=== PATIENT | male | born 1960 | race Caucasian/White ===

== ENCOUNTER 2017-03-22 19:15 | Inpatient (IN) | payer MEDICARE, OTHER ==
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
[2017-03-22 20:13] LABS: % BASOPHILS 0.8 % (0.0-2.0); % EOSINOPHILS 6.2 % (0.0-5.0); % LYMPHOCYTES 31.7 % (20.0-50.0); % MONOCYTES 10.4 % (2.0-10.0); % NEUTROPHILS 50.9 % (40.0-80.0); HEMATOCRIT 40.9 % (39.0-49.0); HEMOGLOBIN 13.4 gm/dL (13.2-17.3); MEAN CORPUSCULAR HEMOGLOBIN 29.5 pg (26.0-30.0); MEAN CORPUSCULAR HGB CONC 32.7 pg (28.0-36.0); MEAN PLATELET VOLUME 7.9 fl; NEUTROPHILE ABSOLUTE 2.5 Th/cmm (1.8-8.0); PLATELET COUNT 243 Th/cmm (150-400); RED BLOOD COUNT 4.54 Mil/cmm (4.30-5.70); RED CELL DISTRIBUTION WIDTH 13.2 % (11.5-20.0)
[2017-03-22 20:21] LABS: WHITE BLOOD COUNT 4.9 Th/cmm (4.8-10.8)
[2017-03-22 20:29] LABS: ACETAMINOPHEN < 10.0 ug/mL (10.0-30.0); ALB/GLOB RATIO 1.4 (1.0-1.8); ALKALINE PHOSPHATASE 67 U/L (34-104); ANION GAP 6.6 (7.0-16.0); BILIRUBIN,TOTAL 0.4 mg/dL (0.3-1.0); BUN - UREA NITROGEN 15 mg/dL (7-25); BUN/CREATININE RATIO 16.7; CALCIUM SERUM 9.5 mg/dL (8.6-10.3); CARBON DIOXIDE 27.8 mEq/L (21.0-31.0); CHLORIDE 105 mEq/L (98-107); CHOLESTEROL 119 mg/dL (<200); CREATININE - SERUM 0.9 mg/dL (0.7-1.3); GLUCOSE 96 mg/dL (70-105); POTASSIUM SERUM 3.4 mEq/L (3.5-5.1); SGOT 17 U/L (13-39); SGPT/ALT 7 U/L (7-52); SODIUM SERUM 136 mEq/L (136-145); TRIGLYCERIDES 75 mg/dL (<150)
[2017-03-22 20:29] LABS: URINE BILIRUBIN NEGATIVE (NEGATIVE); URINE BLOOD NEGATIVE (NEGATIVE); URINE COLOR YELLOW; URINE GLUCOSE (UA) NEGATIVE (NEGATIVE); URINE KETONE NEGATIVE (NEGATIVE)
[2017-03-22 20:30] LABS: URINE BACTERIA NONE SEEN /hpf (NONE SEEN); URINE EPITHELIAL CELLS NONE SEEN /lpf (FEW); URINE PROTEIN NEGATIVE (NEGATIVE); URINE RBC NONE SEEN /hpf (0-5); URINE UROBILINOGEN 0.2 E.U./dL (0.2 - 1.0); URINE WBC NONE SEEN /hpf (0-5)
[2017-03-22 20:38] LABS: AMPHETAMINE URINE NEGATIVE (NEGATIVE); BARBITURATES URINE NEGATIVE (NEGATIVE); METHADONE URINE NEGATIVE (NEGATIVE)
[2017-03-22] MEDS ORDERED: Maalox 30 mL Cup PO PRN (22:05)
[2017-03-22] MEDS ORDERED: Fleet Enema 135 mL RC PRN (22:05)
[2017-03-22] MEDS ORDERED: Acetaminophen 500 MG TAB PO PRN ×2 (22:05)
[2017-03-22 22:12] VITALS: BP 128/82
[2017-03-22] MEDS: Dextromethorphan/Quinidine 20mg/10mg Cap PO SCH (22:30)
[2017-03-23] MEDS: Dextromethorphan/Quinidine 20mg/10mg Cap PO SCH ×2 (10:20→22:15)
[2017-03-23] MEDS: Potassium Chloride 10 mEq ER Tab PO SCH (10:54)
[2017-03-23] MEDS: Multivitamin Tab PO SCH (10:55)
[2017-03-23] MEDS: Pantoprazole 40 mg EC Tab PO SCH (10:55)
--- NOTE | 2017-03-23 15:10 | Admit Criteria Form ---
Admit Criteria Forms - Admit Criteria Diagnosis: PSYCHIATRIC DISORDERS (Place 'X' for any and all applicable criteria): Ongoing inpatient care may be needed for 1 or more of the following(1)(2)(3)(4)( 6)(7)(8): [ ]I. Danger to self or others not manageable at lower level of care. [ ]II. Grave disability (eg, inability to perform self care necessary at lower level of care) [ ]III. Agitation or inappropriate behavior interfering with care for primary condition (eg, attempting to discontinue lines or drains prematurely, unable to cooperate with respiratory care) [X]IV. Severe disability or disorder indicated by ALL of the following: [X]a) Severe behavioral health disorder-related symptoms or condition indicated by 1 or more of the following: [ ]i) Severe problem with cognition, memory, judgment, or impulse control [X]ii) Severe clinical manifestations (eg, hallucinations, delusions, other acute psychotic symptoms, gilberto, extreme agitation or anxiety) [X]b) Patient management at lower level of care is not feasible until acute intervention or modification is initiated. Extended stay beyond goal length of stay for the primary condition may be needed until ALLof the following are present(1)(2)(3)(4)(7)89)(23): [ ]a) Danger to self or others is absent or manageable at lower level of care [ ]b) Behavior crisis management, including physical or chemical restraints, is required and is not available at a lower level of care. [ ]c) Behavioral symptoms (e.g., agitation, somnolence, inappropriate behavior) are present, and are not manageable at a lower level of care. [ ]d) Patient cannot understand follow-up treatment and crisis plan. [ ]e) Provider and supports are sufficiently available at lower level of care. [ ]f) Patient can participate (e.g., verify absence of plan for harm) and is in needed of monitoring. The original [facility] content created by [facility] has been revised. The portions of the content which have been revised are identified through the use of italic text or in bold, and [facility] has neither reviewed nor approved the modified material. All other unmodified content is copyright [facility]. Please see references footnoted in the original [facility] edition 2017
[2017-03-24] MEDS: Potassium Chloride 10 mEq ER Tab PO SCH (09:53)
[2017-03-24] MEDS: Multivitamin Tab PO SCH (09:54)
[2017-03-24] MEDS: Pantoprazole 40 mg EC Tab PO SCH (09:55)
[2017-03-24] MEDS: Dextromethorphan/Quinidine 20mg/10mg Cap PO SCH ×2 (09:58→22:15)
[2017-03-25] MEDS: Potassium Chloride 10 mEq ER Tab PO SCH (10:08)
[2017-03-25] MEDS: Multivitamin Tab PO SCH (10:08)
[2017-03-25] MEDS: Pantoprazole 40 mg EC Tab PO SCH (10:08)
[2017-03-25] MEDS: Dextromethorphan/Quinidine 20mg/10mg Cap PO SCH ×2 (10:09→22:15)
[2017-03-26] MEDS: Pantoprazole 40 mg EC Tab PO SCH (08:52)
[2017-03-26] MEDS: Potassium Chloride 10 mEq ER Tab PO SCH (08:52)
[2017-03-26] MEDS: Multivitamin Tab PO SCH (08:52)
[2017-03-26] MEDS: Dextromethorphan/Quinidine 20mg/10mg Cap PO SCH ×2 (16:04→21:57)
--- NOTE | 2017-03-26 17:03 | General Progress Note ---
Subjective - Review of Systems Service Date: 03/26/17 Objective - Results Result Diagrams: 03/22/17 20:06 03/22/17 20:06 Recent Labs: Laboratory Last Values WBC 4.9 Th/cmm (4.8-10.8) D 03/22/17 20:06 RBC 4.54 Mil/cmm (4.30-5.70) 03/22/17 20:06 Hgb 13.4 gm/dL (13.2-17.3) 03/22/17 20:06 Hct 40.9 % (39.0-49.0) 03/22/17 20:06 MCV 90.0 fl (80-99) 03/22/17 20:06 MCH 29.5 pg (26.0-30.0) 03/22/17 20:06 MCHC Differential 32.7 pg (28.0-36.0) 03/22/17 20:06 RDW 13.2 % (11.5-20.0) 03/22/17 20:06 Plt Count 243 Th/cmm (150-400) 03/22/17 20:06 MPV 7.9 fl 03/22/17 20:06 Neutrophils % 50.9 % (40.0-80.0) 03/22/17 20:06 Lymphocytes % 31.7 % (20.0-50.0) 03/22/17 20:06 Monocytes % 10.4 % (2.0-10.0) H 03/22/17 20:06 Eosinophils % 6.2 % (0.0-5.0) H 03/22/17 20:06 Basophils % 0.8 % (0.0-2.0) 03/22/17 20:06 Sodium 136 mEq/L (136-145) 03/22/17 20:06 Potassium 3.4 mEq/L (3.5-5.1) L 03/22/17 20:06 Chloride 105 mEq/L (98-107) 03/22/17 20:06 Carbon Dioxide 27.8 mEq/L (21.0-31.0) 03/22/17 20:06 Anion Gap 6.6 (7.0-16.0) L 03/22/17 20:06 BUN 15 mg/dL (7-25) 03/22/17 20:06 Creatinine 0.9 mg/dL (0.7-1.3) 03/22/17 20:06 Est GFR ( Amer) > 60.0 ml/min (>90) 03/22/17 20:06 Est GFR (Non-Af Amer) > 60.0 ml/min 03/22/17 20:06 BUN/Creatinine Ratio 16.7 03/22/17 20:06 Glucose 96 mg/dL (70-105) 03/22/17 20:06 Calcium 9.5 mg/dL (8.6-10.3) 03/22/17 20:06 Total Bilirubin 0.4 mg/dL (0.3-1.0) 03/22/17 20:06 AST 17 U/L (13-39) 03/22/17 20:06 ALT 7 U/L (7-52) 03/22/17 20:06 Alkaline Phosphatase 67 U/L (34-104) 03/22/17 20:06 Total Protein 6.7 gm/dL (6.0-8.3) 03/22/17 20:06 Albumin 3.9 gm/dL (4.2-5.5) L 03/22/17 20:06 Globulin 2.8 gm/dL 03/22/17 20:06 Albumin/Globulin Ratio 1.4 (1.0-1.8) 03/22/17 20:06 Triglycerides 75 mg/dL (<150) 03/22/17 20:06 Cholesterol 119 mg/dL (<200) 03/22/17 20:06 LDL Cholesterol Direct 52 mg/dL (75-193) L 03/22/17 20:06 HDL Cholesterol 51 mg/dL (23-92) 03/22/17 20:06 TSH 0.40 uIU/ml (0.34-5.60) 03/22/17 20:06 Urine Source CLEAN C 03/22/17 20:00 Urine Color YELLOW 03/22/17 20:00 Urine Clarity CLEAR (CLEAR) 03/22/17 20:00 Urine pH 7.0 03/22/17 20:00 Ur Specific [place] 1.020 (1.005-1.030) 03/22/17 20:00 Urine Protein NEGATIVE mg/dL (NEGATIVE) 03/22/17 20:00 Urine Glucose (UA) NEGATIVE mg/dL (NEGATIVE) 03/22/17 20:00 Urine Ketones NEGATIVE mg/dL (NEGATIVE) 03/22/17 20:00 Urine Blood NEGATIVE (NEGATIVE) 03/22/17 20:00 Urine Nitrate NEGATIVE (NEGATIVE) 03/22/17 20:00 Urine Bilirubin NEGATIVE (NEGATIVE) 03/22/17 20:00 Urine Urobilinogen 0.2 E.U./dL (0.2 - 1.0) 03/22/17 20:00 Ur Leukocyte Esterase NEGATIVE (NEGATIVE) 03/22/17 20:00 Urine RBC NONE SEEN /hpf (0-5) 03/22/17 20:00 Urine WBC NONE SEEN /hpf (0-5) 03/22/17 20:00 Ur Epithelial Cells NONE SEEN /lpf (FEW) 03/22/17 20:00 Urine Bacteria NONE SEEN /hpf (NONE SEEN) 03/22/17 20:00 Salicylates < 25.0 mg/L (30.0-100.0) L 03/22/17 20:06 Urine Opiates Screen NEGATIVE (NEGATIVE) 03/22/17 20:00 Urine Methadone Screen NEGATIVE (NEGATIVE) 03/22/17 20:00 Acetaminophen < 10.0 ug/mL (10.0-30.0) L 03/22/17 20:06 Ur Barbiturates Screen NEGATIVE (NEGATIVE) 03/22/17 20:00 Ur Tricyclics Screen POSITIVE (NEGATIVE) H 03/22/17 20:00 Ur Phencyclidine Scrn NEGATIVE (NEGATIVE) 03/22/17 20:00 Amphetamines Screen NEGATIVE (NEGATIVE) 03/22/17 20:00 U Methamphetamines Scrn NEGATIVE (NEGATIVE) 03/22/17 20:00 U Benzodiazepines Scrn POSITIVE (NEGATIVE) H 03/22/17 20:00 U Cocaine Metab Screen NEGATIVE (NEGATIVE) 03/22/17 20:00 U Cannabinoids Screen NEGATIVE (NEGATIVE) 03/22/17 20:00 Ethyl Alcohol < 10 mg/dL (0-10) 03/22/17 20:06 RPR NONREACTIVE (NONREACTIVE) 03/22/17 20:06 - Physical Exam Vitals and I&O: Vital Signs Temp 98.8 F 03/26/17 15:49 Pulse 57 03/26/17 15:49 Resp 20 03/26/17 15:49 BP 123/80 03/26/17 15:49 Pulse Ox 96 03/26/17 15:49 Intake & Output 03/25/17 03/26/17 03/26/17 18:59 06:59 18:59 Intake Total 120 Balance 120 Intake: Oral 120 Other: # Voids 3 Active Medications: Current Medications Acetaminophen (Tylenol) 650 mg PO Q4HR PRN PRN Reason: Pain (Moderate) Stop: 05/21/17 22:04 Acetaminophen (Tylenol Extra Strength) 500 mg PO Q4HR PRN PRN Reason: Pain (Mild) Acetaminophen (Tylenol Extra Strength) 1,000 mg PO Q4HR PRN PRN Reason: Pain (Severe) Al Hydrox/Mg Hydrox/Simethicone (Maalox) 30 ml PO Q4HR PRN PRN Reason: GI DISTRESS Stop: 05/21/17 22:04 Dextromethorphan/Quinidine (Nuedexta 20mg-10mg) 1 cap PO Q12H JORGITO Stop: 05/21/17 22:14 Last Admin: 03/26/17 16:04 Dose: Not Given Docusate Sodium (Colace) 250 mg PO DAILY PRN PRN Reason: Constipation Stop: 05/21/17 22:04 Lorazepam (Ativan) 1 mg PO Q6HR PRN; Protocol PRN Reason: Anxiety Stop: 05/21/17 22:04 Multivitamins/Vitamin C (Theragran) 1 tab PO DAILY JORGITO Stop: 05/22/17 08:59 Last Admin: 03/26/17 08:52 Dose: 1 tab Pantoprazole Sodium (Protonix) 40 mg PO DAILY JORGITO Stop: 05/22/17 08:59 Last Admin: 03/26/17 08:52 Dose: 40 mg Potassium Chloride (Klor-Con) 10 meq PO DAILY JORGITO Stop: 05/22/17 08:59 Last Admin: 03/26/17 08:52 Dose: 10 meq Quetiapine Fumarate (Seroquel) 400 mg PO HS JORGITO PRN Reason: Protocol Stop: 05/22/17 20:59 Last Admin: 03/25/17 21:00 Dose: 400 mg Sodium Phosphate (Fleet Enema) 135 ml RC Q72HR PRN PRN Reason: Constipation Stop: 05/21/17 22:04 Topiramate (Topamax) 75 mg PO BID JORGITO Stop: 05/22/17 08:59 Last Admin: 03/26/17 08:52 Dose: 75 mg - Procedures Procedures: Procedures Procedure Code Date GROUP PSYCHOTHERAPY 90538 08/19/15 GROUP PSYCHOTHERAPY [id number] 08/19/15 Assessment/Plan - Problem List Patient Problems: All Active Problems Agitation (Acute) R45.1 Cerebral palsy (Acute) G80.9 Hypertension (Acute) I10 Pseudobulbar affect (Acute) F48.2 Seizure (Acute) R56.9 Traumatic brain injury (Acute) S06.9X9A UTI (urinary tract infection) (Acute) Nutritional Asmnt/Malnutr-PDOC - Dietary Evaluation Malnutrition Findings (Please click <Entered> for more info): Nutritional Asmnt/Malnutrition Start: 03/24/17 15: 19 Text: Status: Complete Freq: Document 03/24/17 15:19 GSUN (Rec: 03/24/17 15:28 GSUN [id number]) Nutritional Asmnt/Malnutrition Patient General Information Nutritional Screening Diagnosis Diagnosis ER: aggressive behavior, increased agitation Pertinent Medical Hx/Surgical Hx ER: HTN, PUD/GERD, seizures, dementia, traumatic brain injury, pseudobulbar effect, schizophrenia, anxiety Subjective Information 57 year old male from SNF. Pt was slow in resposnes, alert and pleasant. Pt is edentulous , dentures bottom teeth only, denied difficulties chewing/ swallowing. Pt is thin, mild- moderate fat/muscle wasting to clavicles. Pt is unsure of UBW. Pt stated breakfast was good, denied nutritional concerns at this time. Spoke to ROPEMAN, ROPEMAN stated pt has good appetite, 100% breakfast this AM. Current Diet Order/ Nutrition Support [facility] soft chopped, QUAN Pertinent Medications Maalox, Colace, Theragran, Protonix, Klor-Con, Seroquel, Fleet Enema Pertinent Labs Reviewed. Nutritional Hx/Data Height 1.73 m Height (Calculated Centimeters) 172.7 Current Weight (lbs) 56.835 kg Weight (Calculated Kilograms) 56.8 Weight (Calculated Grams) 49273.1 [place] Body Weight 154 Weight Status Approriate GI Symptoms Food Allergies No Usual diet at home [facility]: [facility] soft Skin Integrity/Comment: Jose 17. Skin intact. Estimated Nutritional Goals BEE in Kcals: Using Current wt Calories/Kcals/Kg CBW 125.3lb/57kg Kcals Calculated 1425-1710kcal (25-30kcal/kg) Protein: Using Current wt Protein Calculated 57-68g (1-1.2g/kg) Fluid: ml 1425-1710ml (1ml/kcal) Nutritional Problem 1. Problem Problem No nutritional problem at this time. Intervention/Recommendation Comments 1. Continue with current diet order. Encourage PO intake. 2. Nursing staff to record %PO intake, no records since adm. 3. Monitor weight, pt is overall thin with mild- moderate wasting noted. Expected Outcomes/Goals Expected Outcomes/Goals 1. PO intake to meet 100% of estimated nutritional needs.
--- NOTE | 2017-03-27 12:50 | General Progress Note ---
Subjective - Review of Systems Events since last encounter: no distress Objective - Results Result Diagrams: 03/22/17 20:06 03/22/17 20:06 Recent Labs: Laboratory Last Values WBC 4.9 Th/cmm (4.8-10.8) D 03/22/17 20:06 RBC 4.54 Mil/cmm (4.30-5.70) 03/22/17 20:06 Hgb 13.4 gm/dL (13.2-17.3) 03/22/17 20:06 Hct 40.9 % (39.0-49.0) 03/22/17 20:06 MCV 90.0 fl (80-99) 03/22/17 20:06 MCH 29.5 pg (26.0-30.0) 03/22/17 20:06 MCHC Differential 32.7 pg (28.0-36.0) 03/22/17 20:06 RDW 13.2 % (11.5-20.0) 03/22/17 20:06 Plt Count 243 Th/cmm (150-400) 03/22/17 20:06 MPV 7.9 fl 03/22/17 20:06 Neutrophils % 50.9 % (40.0-80.0) 03/22/17 20:06 Lymphocytes % 31.7 % (20.0-50.0) 03/22/17 20:06 Monocytes % 10.4 % (2.0-10.0) H 03/22/17 20:06 Eosinophils % 6.2 % (0.0-5.0) H 03/22/17 20:06 Basophils % 0.8 % (0.0-2.0) 03/22/17 20:06 Sodium 136 mEq/L (136-145) 03/22/17 20:06 Potassium 3.4 mEq/L (3.5-5.1) L 03/22/17 20:06 Chloride 105 mEq/L (98-107) 03/22/17 20:06 Carbon Dioxide 27.8 mEq/L (21.0-31.0) 03/22/17 20:06 Anion Gap 6.6 (7.0-16.0) L 03/22/17 20:06 BUN 15 mg/dL (7-25) 03/22/17 20:06 Creatinine 0.9 mg/dL (0.7-1.3) 03/22/17 20:06 Est GFR ( Amer) > 60.0 ml/min (>90) 03/22/17 20:06 Est GFR (Non-Af Amer) > 60.0 ml/min 03/22/17 20:06 BUN/Creatinine Ratio 16.7 03/22/17 20:06 Glucose 96 mg/dL (70-105) 03/22/17 20:06 Calcium 9.5 mg/dL (8.6-10.3) 03/22/17 20:06 Total Bilirubin 0.4 mg/dL (0.3-1.0) 03/22/17 20:06 AST 17 U/L (13-39) 03/22/17 20:06 ALT 7 U/L (7-52) 03/22/17 20:06 Alkaline Phosphatase 67 U/L (34-104) 03/22/17 20:06 Total Protein 6.7 gm/dL (6.0-8.3) 03/22/17 20:06 Albumin 3.9 gm/dL (4.2-5.5) L 03/22/17 20:06 Globulin 2.8 gm/dL 03/22/17 20:06 Albumin/Globulin Ratio 1.4 (1.0-1.8) 03/22/17 20:06 Triglycerides 75 mg/dL (<150) 03/22/17 20:06 Cholesterol 119 mg/dL (<200) 03/22/17 20:06 LDL Cholesterol Direct 52 mg/dL (75-193) L 03/22/17 20:06 HDL Cholesterol 51 mg/dL (23-92) 03/22/17 20:06 TSH 0.40 uIU/ml (0.34-5.60) 03/22/17 20:06 Urine Source CLEAN C 03/22/17 20:00 Urine Color YELLOW 03/22/17 20:00 Urine Clarity CLEAR (CLEAR) 03/22/17 20:00 Urine pH 7.0 03/22/17 20:00 Ur Specific [place] 1.020 (1.005-1.030) 03/22/17 20:00 Urine Protein NEGATIVE mg/dL (NEGATIVE) 03/22/17 20:00 Urine Glucose (UA) NEGATIVE mg/dL (NEGATIVE) 03/22/17 20:00 Urine Ketones NEGATIVE mg/dL (NEGATIVE) 03/22/17 20:00 Urine Blood NEGATIVE (NEGATIVE) 03/22/17 20:00 Urine Nitrate NEGATIVE (NEGATIVE) 03/22/17 20:00 Urine Bilirubin NEGATIVE (NEGATIVE) 03/22/17 20:00 Urine Urobilinogen 0.2 E.U./dL (0.2 - 1.0) 03/22/17 20:00 Ur Leukocyte Esterase NEGATIVE (NEGATIVE) 03/22/17 20:00 Urine RBC NONE SEEN /hpf (0-5) 03/22/17 20:00 Urine WBC NONE SEEN /hpf (0-5) 03/22/17 20:00 Ur Epithelial Cells NONE SEEN /lpf (FEW) 03/22/17 20:00 Urine Bacteria NONE SEEN /hpf (NONE SEEN) 03/22/17 20:00 Salicylates < 25.0 mg/L (30.0-100.0) L 03/22/17 20:06 Urine Opiates Screen NEGATIVE (NEGATIVE) 03/22/17 20:00 Urine Methadone Screen NEGATIVE (NEGATIVE) 03/22/17 20:00 Acetaminophen < 10.0 ug/mL (10.0-30.0) L 03/22/17 20:06 Ur Barbiturates Screen NEGATIVE (NEGATIVE) 03/22/17 20:00 Ur Tricyclics Screen POSITIVE (NEGATIVE) H 03/22/17 20:00 Ur Phencyclidine Scrn NEGATIVE (NEGATIVE) 03/22/17 20:00 Amphetamines Screen NEGATIVE (NEGATIVE) 03/22/17 20:00 U Methamphetamines Scrn NEGATIVE (NEGATIVE) 03/22/17 20:00 U Benzodiazepines Scrn POSITIVE (NEGATIVE) H 03/22/17 20:00 U Cocaine Metab Screen NEGATIVE (NEGATIVE) 03/22/17 20:00 U Cannabinoids Screen NEGATIVE (NEGATIVE) 03/22/17 20:00 Ethyl Alcohol < 10 mg/dL (0-10) 03/22/17 20:06 RPR NONREACTIVE (NONREACTIVE) 03/22/17 20:06 - Physical Exam Vitals and I&O: Vital Signs Temp 97.6 F 03/27/17 06:08 Pulse 64 03/27/17 06:08 Resp 18 03/27/17 06:08 BP 114/79 03/27/17 06:08 Pulse Ox 98 03/27/17 06:08 Intake & Output 03/26/17 03/27/17 03/27/17 18:59 06:59 18:59 Other: # Voids 1 # Bowel Movements 1 Active Medications: Current Medications Acetaminophen (Tylenol) 650 mg PO Q4HR PRN PRN Reason: Pain (Moderate) Stop: 05/21/17 22:04 Acetaminophen (Tylenol Extra Strength) 500 mg PO Q4HR PRN PRN Reason: Pain (Mild) Acetaminophen (Tylenol Extra Strength) 1,000 mg PO Q4HR PRN PRN Reason: Pain (Severe) Al Hydrox/Mg Hydrox/Simethicone (Maalox) 30 ml PO Q4HR PRN PRN Reason: GI DISTRESS Stop: 05/21/17 22:04 Dextromethorphan/Quinidine (Nuedexta 20mg-10mg) 1 cap PO Q12H JORGITO Stop: 05/21/17 22:14 Last Admin: 03/26/17 21:57 Dose: 1 cap Docusate Sodium (Colace) 250 mg PO DAILY PRN PRN Reason: Constipation Stop: 05/21/17 22:04 Lorazepam (Ativan) 1 mg PO Q6HR PRN; Protocol PRN Reason: Anxiety Stop: 05/21/17 22:04 Multivitamins/Vitamin C (Theragran) 1 tab PO DAILY JORGITO Stop: 05/22/17 08:59 Last Admin: 03/26/17 08:52 Dose: 1 tab Pantoprazole Sodium (Protonix) 40 mg PO DAILY JORGITO Stop: 05/22/17 08:59 Last Admin: 03/26/17 08:52 Dose: 40 mg Potassium Chloride (Klor-Con) 10 meq PO DAILY JORGITO Stop: 05/22/17 08:59 Last Admin: 03/26/17 08:52 Dose: 10 meq Quetiapine Fumarate (Seroquel) 400 mg PO HS JORGITO PRN Reason: Protocol Stop: 05/22/17 20:59 Last Admin: 03/26/17 21:27 Dose: 400 mg Sodium Phosphate (Fleet Enema) 135 ml RC Q72HR PRN PRN Reason: Constipation Stop: 05/21/17 22:04 Topiramate (Topamax) 75 mg PO BID JORGITO Stop: 05/22/17 08:59 Last Admin: 03/26/17 19:09 Dose: Not Given General: No acute distress HEENT: Atraumatic Neck: Supple, no Thyromegaly Cardiovascular: Regular rate - Procedures Procedures: Procedures Procedure Code Date GROUP PSYCHOTHERAPY 46919 08/19/15 GROUP PSYCHOTHERAPY GZHZZZZ 08/19/15 Assessment/Plan - Problem List Patient Problems: All Active Problems Agitation (Acute) R45.1 Cerebral palsy (Acute) G80.9 Hypertension (Acute) I10 Pseudobulbar affect (Acute) F48.2 Seizure (Acute) R56.9 Traumatic brain injury (Acute) S06.9X9A UTI (urinary tract infection) (Acute) - Plan Plan: as per psych as problems arise Nutritional Asmnt/Malnutr-PDOC - Dietary Evaluation Malnutrition Findings (Please click <Entered> for more info): Nutritional Asmnt/Malnutrition Start: 03/24/17 15: 19 Text: Status: Complete Freq: Document 03/24/17 15:19 GSUN (Rec: 03/24/17 15:28 [facility] Nutritional Asmnt/Malnutrition Patient General Information Nutritional Screening Diagnosis Diagnosis ER: aggressive behavior, increased agitation Pertinent Medical Hx/Surgical Hx ER: HTN, PUD/GERD, seizures, dementia, traumatic brain injury, pseudobulbar effect, schizophrenia, anxiety Subjective Information 57 year old male from SNF. Pt was slow in resposnes, alert and pleasant. Pt is edentulous , dentures bottom teeth only, denied difficulties chewing/ swallowing. Pt is thin, mild- moderate fat/muscle wasting to clavicles. Pt is unsure of UBW. Pt stated breakfast was good, denied nutritional concerns at this time. Spoke to SUPERVISOR COMMERCIAL FISH HATCHERY, SUPERVISOR [employer]CIAL [employer] HATCHERY stated pt has good appetite, 100% breakfast this AM. Current Diet Order/ Nutrition Support [facility] soft chopped, QUAN Pertinent Medications Maalox, Colace, Theragran, Protonix, Klor-Con, Seroquel, Fleet Enema Pertinent Labs Reviewed. Nutritional Hx/Data Height 1.73 m Height (Calculated Centimeters) 172.7 Current Weight (lbs) 56.835 kg Weight (Calculated Kilograms) 56.8 Weight (Calculated Grams) 43150.1 [place] Body Weight 154 Weight Status Approriate GI Symptoms Food Allergies No Usual diet at home [facility] SNF: [facility] soft Skin Integrity/Comment: Jose 17. Skin intact. Estimated Nutritional Goals BEE in Kcals: Using Current wt Calories/Kcals/Kg CBW 125.3lb/57kg Kcals Calculated 1425-1710kcal (25-30kcal/kg) Protein: Using Current wt Protein Calculated 57-68g (1-1.2g/kg) Fluid: ml 1425-1710ml (1ml/kcal) Nutritional Problem 1. Problem Problem No nutritional problem at this time. Intervention/Recommendation Comments 1. Continue with current diet order. Encourage PO intake. 2. Nursing staff to record %PO intake, no records since adm. 3. Monitor weight, pt is overall thin with mild- moderate wasting noted. Expected Outcomes/Goals Expected Outcomes/Goals 1. PO intake to meet 100% of estimated nutritional needs.
[2017-03-27] MEDS: Potassium Chloride 10 mEq ER Tab PO SCH (17:01)
[2017-03-27] MEDS: Dextromethorphan/Quinidine 20mg/10mg Cap PO SCH ×2 (17:01→21:26)
[2017-03-27] MEDS: Pantoprazole 40 mg EC Tab PO SCH (17:01)
[2017-03-27] MEDS: Multivitamin Tab PO SCH (17:01)
[2017-03-28] MEDS: Multivitamin Tab PO SCH (09:54)
[2017-03-28] MEDS: Dextromethorphan/Quinidine 20mg/10mg Cap PO SCH (09:54)
[2017-03-28] MEDS: Potassium Chloride 10 mEq ER Tab PO SCH (09:55)
[2017-03-28] MEDS: Pantoprazole 40 mg EC Tab PO SCH (09:55)
--- NOTE | 2017-03-28 10:25 | General Progress Note ---
Subjective - Review of Systems Events since last encounter: no change from yesterday Objective - Results Result Diagrams: 03/22/17 20:06 03/22/17 20:06 Recent Labs: Laboratory Last Values WBC 4.9 Th/cmm (4.8-10.8) D 03/22/17 20:06 RBC 4.54 Mil/cmm (4.30-5.70) 03/22/17 20:06 Hgb 13.4 gm/dL (13.2-17.3) 03/22/17 20:06 Hct 40.9 % (39.0-49.0) 03/22/17 20:06 MCV 90.0 fl (80-99) 03/22/17 20:06 MCH 29.5 pg (26.0-30.0) 03/22/17 20:06 MCHC Differential 32.7 pg (28.0-36.0) 03/22/17 20:06 RDW 13.2 % (11.5-20.0) 03/22/17 20:06 Plt Count 243 Th/cmm (150-400) 03/22/17 20:06 MPV 7.9 fl 03/22/17 20:06 Neutrophils % 50.9 % (40.0-80.0) 03/22/17 20:06 Lymphocytes % 31.7 % (20.0-50.0) 03/22/17 20:06 Monocytes % 10.4 % (2.0-10.0) H 03/22/17 20:06 Eosinophils % 6.2 % (0.0-5.0) H 03/22/17 20:06 Basophils % 0.8 % (0.0-2.0) 03/22/17 20:06 Sodium 136 mEq/L (136-145) 03/22/17 20:06 Potassium 3.4 mEq/L (3.5-5.1) L 03/22/17 20:06 Chloride 105 mEq/L (98-107) 03/22/17 20:06 Carbon Dioxide 27.8 mEq/L (21.0-31.0) 03/22/17 20:06 Anion Gap 6.6 (7.0-16.0) L 03/22/17 20:06 BUN 15 mg/dL (7-25) 03/22/17 20:06 Creatinine 0.9 mg/dL (0.7-1.3) 03/22/17 20:06 Est GFR ( Amer) > 60.0 ml/min (>90) 03/22/17 20:06 Est GFR (Non-Af Amer) > 60.0 ml/min 03/22/17 20:06 BUN/Creatinine Ratio 16.7 03/22/17 20:06 Glucose 96 mg/dL (70-105) 03/22/17 20:06 Calcium 9.5 mg/dL (8.6-10.3) 03/22/17 20:06 Total Bilirubin 0.4 mg/dL (0.3-1.0) 03/22/17 20:06 AST 17 U/L (13-39) 03/22/17 20:06 ALT 7 U/L (7-52) 03/22/17 20:06 Alkaline Phosphatase 67 U/L (34-104) 03/22/17 20:06 Total Protein 6.7 gm/dL (6.0-8.3) 03/22/17 20:06 Albumin 3.9 gm/dL (4.2-5.5) L 03/22/17 20:06 Globulin 2.8 gm/dL 03/22/17 20:06 Albumin/Globulin Ratio 1.4 (1.0-1.8) 03/22/17 20:06 Triglycerides 75 mg/dL (<150) 03/22/17 20:06 Cholesterol 119 mg/dL (<200) 03/22/17 20:06 LDL Cholesterol Direct 52 mg/dL (75-193) L 03/22/17 20:06 HDL Cholesterol 51 mg/dL (23-92) 03/22/17 20:06 TSH 0.40 uIU/ml (0.34-5.60) 03/22/17 20:06 Urine Source CLEAN C 03/22/17 20:00 Urine Color YELLOW 03/22/17 20:00 Urine Clarity CLEAR (CLEAR) 03/22/17 20:00 Urine pH 7.0 03/22/17 20:00 Ur Specific [place] 1.020 (1.005-1.030) 03/22/17 20:00 Urine Protein NEGATIVE mg/dL (NEGATIVE) 03/22/17 20:00 Urine Glucose (UA) NEGATIVE mg/dL (NEGATIVE) 03/22/17 20:00 Urine Ketones NEGATIVE mg/dL (NEGATIVE) 03/22/17 20:00 Urine Blood NEGATIVE (NEGATIVE) 03/22/17 20:00 Urine Nitrate NEGATIVE (NEGATIVE) 03/22/17 20:00 Urine Bilirubin NEGATIVE (NEGATIVE) 03/22/17 20:00 Urine Urobilinogen 0.2 E.U./dL (0.2 - 1.0) 03/22/17 20:00 Ur Leukocyte Esterase NEGATIVE (NEGATIVE) 03/22/17 20:00 Urine RBC NONE SEEN /hpf (0-5) 03/22/17 20:00 Urine WBC NONE SEEN /hpf (0-5) 03/22/17 20:00 Ur Epithelial Cells NONE SEEN /lpf (FEW) 03/22/17 20:00 Urine Bacteria NONE SEEN /hpf (NONE SEEN) 03/22/17 20:00 Salicylates < 25.0 mg/L (30.0-100.0) L 03/22/17 20:06 Urine Opiates Screen NEGATIVE (NEGATIVE) 03/22/17 20:00 Urine Methadone Screen NEGATIVE (NEGATIVE) 03/22/17 20:00 Acetaminophen < 10.0 ug/mL (10.0-30.0) L 03/22/17 20:06 Ur Barbiturates Screen NEGATIVE (NEGATIVE) 03/22/17 20:00 Ur Tricyclics Screen POSITIVE (NEGATIVE) H 03/22/17 20:00 Ur Phencyclidine Scrn NEGATIVE (NEGATIVE) 03/22/17 20:00 Amphetamines Screen NEGATIVE (NEGATIVE) 03/22/17 20:00 U Methamphetamines Scrn NEGATIVE (NEGATIVE) 03/22/17 20:00 U Benzodiazepines Scrn POSITIVE (NEGATIVE) H 03/22/17 20:00 U Cocaine Metab Screen NEGATIVE (NEGATIVE) 03/22/17 20:00 U Cannabinoids Screen NEGATIVE (NEGATIVE) 03/22/17 20:00 Ethyl Alcohol < 10 mg/dL (0-10) 03/22/17 20:06 RPR NONREACTIVE (NONREACTIVE) 03/22/17 20:06 - Physical Exam Vitals and I&O: Vital Signs Temp 97.1 F 03/28/17 06:40 Pulse 70 03/28/17 06:40 Resp 18 03/28/17 06:40 BP 113/80 03/28/17 06:40 Pulse Ox 99 03/28/17 06:40 Intake & Output 03/27/17 03/28/17 03/28/17 18:59 06:59 18:59 Intake Total 850 240 Balance 850 240 Intake: Oral 850 240 Other: # Voids 4 3 # Bowel Movements 2 0 Active Medications: Current Medications Acetaminophen (Tylenol) 650 mg PO Q4HR PRN PRN Reason: Pain (Moderate) Stop: 05/21/17 22:04 Acetaminophen (Tylenol Extra Strength) 500 mg PO Q4HR PRN PRN Reason: Pain (Mild) Acetaminophen (Tylenol Extra Strength) 1,000 mg PO Q4HR PRN PRN Reason: Pain (Severe) Al Hydrox/Mg Hydrox/Simethicone (Maalox) 30 ml PO Q4HR PRN PRN Reason: GI DISTRESS Stop: 05/21/17 22:04 Dextromethorphan/Quinidine (Nuedexta 20mg-10mg) 1 cap PO Q12H JORGITO Stop: 05/21/17 22:14 Last Admin: 03/28/17 09:54 Dose: 1 cap Docusate Sodium (Colace) 250 mg PO DAILY PRN PRN Reason: Constipation Stop: 05/21/17 22:04 Lorazepam (Ativan) 1 mg PO Q6HR PRN; Protocol PRN Reason: Anxiety Stop: 05/21/17 22:04 Multivitamins/Vitamin C (Theragran) 1 tab PO DAILY JORGITO Stop: 05/22/17 08:59 Last Admin: 03/28/17 09:54 Dose: 1 tab Pantoprazole Sodium (Protonix) 40 mg PO DAILY JORGITO Stop: 05/22/17 08:59 Last Admin: 03/28/17 09:55 Dose: 40 mg Potassium Chloride (Klor-Con) 10 meq PO DAILY JORGITO Stop: 05/22/17 08:59 Last Admin: 03/28/17 09:55 Dose: 10 meq Quetiapine Fumarate (Seroquel) 400 mg PO HS JORGITO PRN Reason: Protocol Stop: 05/22/17 20:59 Last Admin: 03/27/17 21:26 Dose: Not Given Sodium Phosphate (Fleet Enema) 135 ml RC Q72HR PRN PRN Reason: Constipation Stop: 05/21/17 22:04 Topiramate (Topamax) 75 mg PO BID JORGITO Stop: 05/22/17 08:59 Last Admin: 03/28/17 09:55 Dose: 75 mg General: No acute distress HEENT: Atraumatic Neck: Supple, no Thyromegaly - Procedures Procedures: Procedures Procedure Code Date GROUP PSYCHOTHERAPY 79605 08/19/15 GROUP PSYCHOTHERAPY GZHZZZZ 08/19/15 Assessment/Plan - Problem List Patient Problems: All Active Problems Agitation (Acute) R45.1 Cerebral palsy (Acute) G80.9 Hypertension (Acute) I10 Pseudobulbar affect (Acute) F48.2 Seizure (Acute) R56.9 Traumatic brain injury (Acute) S06.9X9A UTI (urinary tract infection) (Acute) - Plan Plan: as per psych as problems arise Nutritional Asmnt/Malnutr-PDOC - Dietary Evaluation Malnutrition Findings (Please click <Entered> for more info): Nutritional Asmnt/Malnutrition Start: 03/24/17 15: 19 Text: Status: Complete Freq: Document 03/24/17 15:19 GSUN (Rec: 03/24/17 15:28 [facility] Nutritional Asmnt/Malnutrition Patient General Information Nutritional Screening Diagnosis Diagnosis ER: aggressive behavior, increased agitation Pertinent Medical Hx/Surgical Hx ER: HTN, PUD/GERD, seizures, dementia, traumatic brain injury, pseudobulbar effect, schizophrenia, anxiety Subjective Information 57 year old male from SNF. Pt was slow in resposnes, alert and pleasant. Pt is edentulous , dentures bottom teeth only, denied difficulties chewing/ swallowing. Pt is thin, mild- moderate fat/muscle wasting to clavicles. Pt is unsure of UBW. Pt stated breakfast was good, denied nutritional concerns at this time. Spoke to HELPER TEACHER, HELPER TEACHER stated pt has good appetite, 100% breakfast this AM. Current Diet Order/ Nutrition Support [facility] soft chopped, QUAN Pertinent Medications Maalox, Colace, Theragran, Protonix, Klor-Con, Seroquel, Fleet Enema Pertinent Labs Reviewed. Nutritional Hx/Data Height 1.73 m Height (Calculated Centimeters) 172.7 Current Weight (lbs) 56.835 kg Weight (Calculated Kilograms) 56.8 Weight (Calculated Grams) 24435.1 [place] Body Weight 154 Weight Status Approriate GI Symptoms Food Allergies No Usual diet at home [place] SNF: [facility] soft Skin Integrity/Comment: Jose 17. Skin intact. Estimated Nutritional Goals BEE in Kcals: Using Current wt Calories/Kcals/Kg CBW 125.3lb/57kg Kcals Calculated 1425-1710kcal (25-30kcal/kg) Protein: Using Current wt Protein Calculated 57-68g (1-1.2g/kg) Fluid: ml 1425-1710ml (1ml/kcal) Nutritional Problem 1. Problem Problem No nutritional problem at this time. Intervention/Recommendation Comments 1. Continue with current diet order. Encourage PO intake. 2. Nursing staff to record %PO intake, no records since adm. 3. Monitor weight, pt is overall thin with mild- moderate wasting noted. Expected Outcomes/Goals Expected Outcomes/Goals 1. PO intake to meet 100% of estimated nutritional needs.
[2017-03-29] MEDS: Potassium Chloride 10 mEq ER Tab PO SCH (08:07)
[2017-03-29] MEDS: Multivitamin Tab PO SCH (08:07)
[2017-03-29] MEDS: Pantoprazole 40 mg EC Tab PO SCH (08:07)
--- NOTE | 2017-03-29 09:14 | General Progress Note ---
Subjective - Review of Systems Events since last encounter: no distress Objective - Results Result Diagrams: 03/22/17 20:06 03/22/17 20:06 Recent Labs: Laboratory Last Values WBC 4.9 Th/cmm (4.8-10.8) D 03/22/17 20:06 RBC 4.54 Mil/cmm (4.30-5.70) 03/22/17 20:06 Hgb 13.4 gm/dL (13.2-17.3) 03/22/17 20:06 Hct 40.9 % (39.0-49.0) 03/22/17 20:06 MCV 90.0 fl (80-99) 03/22/17 20:06 MCH 29.5 pg (26.0-30.0) 03/22/17 20:06 MCHC Differential 32.7 pg (28.0-36.0) 03/22/17 20:06 RDW 13.2 % (11.5-20.0) 03/22/17 20:06 Plt Count 243 Th/cmm (150-400) 03/22/17 20:06 MPV 7.9 fl 03/22/17 20:06 Neutrophils % 50.9 % (40.0-80.0) 03/22/17 20:06 Lymphocytes % 31.7 % (20.0-50.0) 03/22/17 20:06 Monocytes % 10.4 % (2.0-10.0) H 03/22/17 20:06 Eosinophils % 6.2 % (0.0-5.0) H 03/22/17 20:06 Basophils % 0.8 % (0.0-2.0) 03/22/17 20:06 Sodium 136 mEq/L (136-145) 03/22/17 20:06 Potassium 3.4 mEq/L (3.5-5.1) L 03/22/17 20:06 Chloride 105 mEq/L (98-107) 03/22/17 20:06 Carbon Dioxide 27.8 mEq/L (21.0-31.0) 03/22/17 20:06 Anion Gap 6.6 (7.0-16.0) L 03/22/17 20:06 BUN 15 mg/dL (7-25) 03/22/17 20:06 Creatinine 0.9 mg/dL (0.7-1.3) 03/22/17 20:06 Est GFR ( Amer) > 60.0 ml/min (>90) 03/22/17 20:06 Est GFR (Non-Af Amer) > 60.0 ml/min 03/22/17 20:06 BUN/Creatinine Ratio 16.7 03/22/17 20:06 Glucose 96 mg/dL (70-105) 03/22/17 20:06 Calcium 9.5 mg/dL (8.6-10.3) 03/22/17 20:06 Total Bilirubin 0.4 mg/dL (0.3-1.0) 03/22/17 20:06 AST 17 U/L (13-39) 03/22/17 20:06 ALT 7 U/L (7-52) 03/22/17 20:06 Alkaline Phosphatase 67 U/L (34-104) 03/22/17 20:06 Total Protein 6.7 gm/dL (6.0-8.3) 03/22/17 20:06 Albumin 3.9 gm/dL (4.2-5.5) L 03/22/17 20:06 Globulin 2.8 gm/dL 03/22/17 20:06 Albumin/Globulin Ratio 1.4 (1.0-1.8) 03/22/17 20:06 Triglycerides 75 mg/dL (<150) 03/22/17 20:06 Cholesterol 119 mg/dL (<200) 03/22/17 20:06 LDL Cholesterol Direct 52 mg/dL (75-193) L 03/22/17 20:06 HDL Cholesterol 51 mg/dL (23-92) 03/22/17 20:06 TSH 0.40 uIU/ml (0.34-5.60) 03/22/17 20:06 Urine Source CLEAN C 03/22/17 20:00 Urine Color YELLOW 03/22/17 20:00 Urine Clarity CLEAR (CLEAR) 03/22/17 20:00 Urine pH 7.0 03/22/17 20:00 Ur Specific [place] 1.020 (1.005-1.030) 03/22/17 20:00 Urine Protein NEGATIVE mg/dL (NEGATIVE) 03/22/17 20:00 Urine Glucose (UA) NEGATIVE mg/dL (NEGATIVE) 03/22/17 20:00 Urine Ketones NEGATIVE mg/dL (NEGATIVE) 03/22/17 20:00 Urine Blood NEGATIVE (NEGATIVE) 03/22/17 20:00 Urine Nitrate NEGATIVE (NEGATIVE) 03/22/17 20:00 Urine Bilirubin NEGATIVE (NEGATIVE) 03/22/17 20:00 Urine Urobilinogen 0.2 E.U./dL (0.2 - 1.0) 03/22/17 20:00 Ur Leukocyte Esterase NEGATIVE (NEGATIVE) 03/22/17 20:00 Urine RBC NONE SEEN /hpf (0-5) 03/22/17 20:00 Urine WBC NONE SEEN /hpf (0-5) 03/22/17 20:00 Ur Epithelial Cells NONE SEEN /lpf (FEW) 03/22/17 20:00 Urine Bacteria NONE SEEN /hpf (NONE SEEN) 03/22/17 20:00 Salicylates < 25.0 mg/L (30.0-100.0) L 03/22/17 20:06 Urine Opiates Screen NEGATIVE (NEGATIVE) 03/22/17 20:00 Urine Methadone Screen NEGATIVE (NEGATIVE) 03/22/17 20:00 Acetaminophen < 10.0 ug/mL (10.0-30.0) L 03/22/17 20:06 Ur Barbiturates Screen NEGATIVE (NEGATIVE) 03/22/17 20:00 Ur Tricyclics Screen POSITIVE (NEGATIVE) H 03/22/17 20:00 Ur Phencyclidine Scrn NEGATIVE (NEGATIVE) 03/22/17 20:00 Amphetamines Screen NEGATIVE (NEGATIVE) 03/22/17 20:00 U Methamphetamines Scrn NEGATIVE (NEGATIVE) 03/22/17 20:00 U Benzodiazepines Scrn POSITIVE (NEGATIVE) H 03/22/17 20:00 U Cocaine Metab Screen NEGATIVE (NEGATIVE) 03/22/17 20:00 U Cannabinoids Screen NEGATIVE (NEGATIVE) 03/22/17 20:00 Ethyl Alcohol < 10 mg/dL (0-10) 03/22/17 20:06 RPR NONREACTIVE (NONREACTIVE) 03/22/17 20:06 - Physical Exam Vitals and I&O: Vital Signs Temp 97.9 F 03/29/17 05:47 Pulse 67 03/29/17 05:47 Resp 18 03/29/17 05:47 BP 89/56 03/29/17 05:47 Pulse Ox 97 03/29/17 05:47 Intake & Output 03/28/17 03/29/17 03/29/17 18:59 06:59 18:59 Intake Total 1000 120 Output Total 1 Balance 1000 119 Intake: Oral 1000 120 Output: Stool 1 Other: # Voids 4 1 # Bowel Movements 2 0 Active Medications: Current Medications Acetaminophen (Tylenol) 650 mg PO Q4HR PRN PRN Reason: Pain (Moderate) Stop: 05/21/17 22:04 Acetaminophen (Tylenol Extra Strength) 500 mg PO Q4HR PRN PRN Reason: Pain (Mild) Acetaminophen (Tylenol Extra Strength) 1,000 mg PO Q4HR PRN PRN Reason: Pain (Severe) Al Hydrox/Mg Hydrox/Simethicone (Maalox) 30 ml PO Q4HR PRN PRN Reason: GI DISTRESS Stop: 05/21/17 22:04 Dextromethorphan/Quinidine (Nuedexta 20mg-10mg) 1 cap PO Q12H [facility] Stop: 05/21/17 22:14 Last Admin: 03/28/17 09:54 Dose: 1 cap Docusate Sodium (Colace) 250 mg PO DAILY PRN PRN Reason: Constipation Stop: 05/21/17 22:04 Lorazepam (Ativan) 1 mg PO Q6HR PRN; Protocol PRN Reason: Anxiety Stop: 05/21/17 22:04 Multivitamins/Vitamin C (Theragran) 1 tab PO DAILY [facility] Stop: 05/22/17 08:59 Last Admin: 03/29/17 08:07 Dose: 1 tab Pantoprazole Sodium (Protonix) 40 mg PO DAILY [facility] Stop: 05/22/17 08:59 Last Admin: 03/29/17 08:07 Dose: 40 mg Potassium Chloride (Klor-Con) 10 meq PO DAILY [facility] Stop: 05/22/17 08:59 Last Admin: 03/29/17 08:07 Dose: 10 meq Quetiapine Fumarate (Seroquel) 400 mg PO HS [facility] PRN Reason: Protocol Stop: 05/22/17 20:59 Last Admin: 03/28/17 21:18 Dose: 400 mg Sodium Phosphate (Fleet Enema) 135 ml RC Q72HR PRN PRN Reason: Constipation Stop: 05/21/17 22:04 Topiramate (Topamax) 75 mg PO BID [facility] Stop: 05/22/17 08:59 Last Admin: 03/29/17 08:07 Dose: 75 mg General: No acute distress HEENT: Atraumatic Cardiovascular: Regular rate, Normal S1, Normal S2 - Procedures Procedures: Procedures Procedure Code Date GROUP PSYCHOTHERAPY 67944 08/19/15 GROUP PSYCHOTHERAPY GZHZZZZ 08/19/15 Assessment/Plan - Problem List Patient Problems: All Active Problems Agitation (Acute) R45.1 Cerebral palsy (Acute) G80.9 Hypertension (Acute) I10 Pseudobulbar affect (Acute) F48.2 Seizure (Acute) R56.9 Traumatic brain injury (Acute) S06.9X9A UTI (urinary tract infection) (Acute) - Plan Plan: as per psych as problems arise Nutritional Asmnt/Malnutr-PDOC - Dietary Evaluation Malnutrition Findings (Please click <Entered> for more info): Nutritional Asmnt/Malnutrition Start: 03/24/17 15: 19 Text: Status: Complete Freq: Document 03/24/17 15:19 GSUN (Rec: 03/24/17 15:28 GSUN [email or web address]) Nutritional Asmnt/Malnutrition Patient General Information Nutritional Screening Diagnosis Diagnosis ER: aggressive behavior, increased agitation Pertinent Medical Hx/Surgical Hx ER: HTN, PUD/GERD, seizures, dementia, traumatic brain injury, pseudobulbar effect, schizophrenia, anxiety Subjective Information 57 year old male from SNF. Pt was slow in resposnes, alert and pleasant. Pt is edentulous , dentures bottom teeth only, denied difficulties chewing/ swallowing. Pt is thin, mild- moderate fat/muscle wasting to clavicles. Pt is unsure of UBW. Pt stated breakfast was good, denied nutritional concerns at this time. Spoke to COMPRESSOR STATION CHIEF ENGINEER, COMPRESSOR STATION CHIEF ENGINEER stated pt has good appetite, 100% breakfast this AM. Current Diet Order/ Nutrition Support [facility] soft chopped, QUAN Pertinent Medications Maalox, Colace, Theragran, Protonix, Klor-Con, Seroquel, Fleet Enema Pertinent Labs Reviewed. Nutritional Hx/Data Height 1.73 m Height (Calculated Centimeters) 172.7 Current Weight (lbs) 56.835 kg Weight (Calculated Kilograms) 56.8 Weight (Calculated Grams) 13530.1 [place] Body Weight 154 Weight Status Approriate GI Symptoms Food Allergies No Usual diet at home [facility] SNF: [facility] soft Skin Integrity/Comment: Jose 17. Skin intact. Estimated Nutritional Goals BEE in Kcals: Using Current wt Calories/Kcals/Kg CBW 125.3lb/57kg Kcals Calculated 1425-1710kcal (25-30kcal/kg) Protein: Using Current wt Protein Calculated 57-68g (1-1.2g/kg) Fluid: ml 1425-1710ml (1ml/kcal) Nutritional Problem 1. Problem Problem No nutritional problem at this time. Intervention/Recommendation Comments 1. Continue with current diet order. Encourage PO intake. 2. Nursing staff to record %PO intake, no records since adm. 3. Monitor weight, pt is overall thin with mild- moderate wasting noted. Expected Outcomes/Goals Expected Outcomes/Goals 1. PO intake to meet 100% of estimated nutritional needs.
[2017-03-29] MEDS: Dextromethorphan/Quinidine 20mg/10mg Cap PO SCH ×2 (09:15→20:34)
[2017-03-30] MEDS: Multivitamin Tab PO SCH (08:39)
--- NOTE | 2017-03-30 09:51 | General Progress Note ---
Subjective - Review of Systems Events since last encounter: no distress Objective - Results Result Diagrams: 03/22/17 20:06 03/22/17 20:06 Recent Labs: Laboratory Last Values WBC 4.9 Th/cmm (4.8-10.8) D 03/22/17 20:06 RBC 4.54 Mil/cmm (4.30-5.70) 03/22/17 20:06 Hgb 13.4 gm/dL (13.2-17.3) 03/22/17 20:06 Hct 40.9 % (39.0-49.0) 03/22/17 20:06 MCV 90.0 fl (80-99) 03/22/17 20:06 MCH 29.5 pg (26.0-30.0) 03/22/17 20:06 MCHC Differential 32.7 pg (28.0-36.0) 03/22/17 20:06 RDW 13.2 % (11.5-20.0) 03/22/17 20:06 Plt Count 243 Th/cmm (150-400) 03/22/17 20:06 MPV 7.9 fl 03/22/17 20:06 Neutrophils % 50.9 % (40.0-80.0) 03/22/17 20:06 Lymphocytes % 31.7 % (20.0-50.0) 03/22/17 20:06 Monocytes % 10.4 % (2.0-10.0) H 03/22/17 20:06 Eosinophils % 6.2 % (0.0-5.0) H 03/22/17 20:06 Basophils % 0.8 % (0.0-2.0) 03/22/17 20:06 Sodium 136 mEq/L (136-145) 03/22/17 20:06 Potassium 3.4 mEq/L (3.5-5.1) L 03/22/17 20:06 Chloride 105 mEq/L (98-107) 03/22/17 20:06 Carbon Dioxide 27.8 mEq/L (21.0-31.0) 03/22/17 20:06 Anion Gap 6.6 (7.0-16.0) L 03/22/17 20:06 BUN 15 mg/dL (7-25) 03/22/17 20:06 Creatinine 0.9 mg/dL (0.7-1.3) 03/22/17 20:06 Est GFR ( Amer) > 60.0 ml/min (>90) 03/22/17 20:06 Est GFR (Non-Af Amer) > 60.0 ml/min 03/22/17 20:06 BUN/Creatinine Ratio 16.7 03/22/17 20:06 Glucose 96 mg/dL (70-105) 03/22/17 20:06 Calcium 9.5 mg/dL (8.6-10.3) 03/22/17 20:06 Total Bilirubin 0.4 mg/dL (0.3-1.0) 03/22/17 20:06 AST 17 U/L (13-39) 03/22/17 20:06 ALT 7 U/L (7-52) 03/22/17 20:06 Alkaline Phosphatase 67 U/L (34-104) 03/22/17 20:06 Total Protein 6.7 gm/dL (6.0-8.3) 03/22/17 20:06 Albumin 3.9 gm/dL (4.2-5.5) L 03/22/17 20:06 Globulin 2.8 gm/dL 03/22/17 20:06 Albumin/Globulin Ratio 1.4 (1.0-1.8) 03/22/17 20:06 Triglycerides 75 mg/dL (<150) 03/22/17 20:06 Cholesterol 119 mg/dL (<200) 03/22/17 20:06 LDL Cholesterol Direct 52 mg/dL (75-193) L 03/22/17 20:06 HDL Cholesterol 51 mg/dL (23-92) 03/22/17 20:06 TSH 0.40 uIU/ml (0.34-5.60) 03/22/17 20:06 Urine Source CLEAN C 03/22/17 20:00 Urine Color YELLOW 03/22/17 20:00 Urine Clarity CLEAR (CLEAR) 03/22/17 20:00 Urine pH 7.0 03/22/17 20:00 Ur Specific [place] 1.020 (1.005-1.030) 03/22/17 20:00 Urine Protein NEGATIVE mg/dL (NEGATIVE) 03/22/17 20:00 Urine Glucose (UA) NEGATIVE mg/dL (NEGATIVE) 03/22/17 20:00 Urine Ketones NEGATIVE mg/dL (NEGATIVE) 03/22/17 20:00 Urine Blood NEGATIVE (NEGATIVE) 03/22/17 20:00 Urine Nitrate NEGATIVE (NEGATIVE) 03/22/17 20:00 Urine Bilirubin NEGATIVE (NEGATIVE) 03/22/17 20:00 Urine Urobilinogen 0.2 E.U./dL (0.2 - 1.0) 03/22/17 20:00 Ur Leukocyte Esterase NEGATIVE (NEGATIVE) 03/22/17 20:00 Urine RBC NONE SEEN /hpf (0-5) 03/22/17 20:00 Urine WBC NONE SEEN /hpf (0-5) 03/22/17 20:00 Ur Epithelial Cells NONE SEEN /lpf (FEW) 03/22/17 20:00 Urine Bacteria NONE SEEN /hpf (NONE SEEN) 03/22/17 20:00 Salicylates < 25.0 mg/L (30.0-100.0) L 03/22/17 20:06 Urine Opiates Screen NEGATIVE (NEGATIVE) 03/22/17 20:00 Urine Methadone Screen NEGATIVE (NEGATIVE) 03/22/17 20:00 Acetaminophen < 10.0 ug/mL (10.0-30.0) L 03/22/17 20:06 Ur Barbiturates Screen NEGATIVE (NEGATIVE) 03/22/17 20:00 Ur Tricyclics Screen POSITIVE (NEGATIVE) H 03/22/17 20:00 Ur Phencyclidine Scrn NEGATIVE (NEGATIVE) 03/22/17 20:00 Amphetamines Screen NEGATIVE (NEGATIVE) 03/22/17 20:00 U Methamphetamines Scrn NEGATIVE (NEGATIVE) 03/22/17 20:00 U Benzodiazepines Scrn POSITIVE (NEGATIVE) H 03/22/17 20:00 U Cocaine Metab Screen NEGATIVE (NEGATIVE) 03/22/17 20:00 U Cannabinoids Screen NEGATIVE (NEGATIVE) 03/22/17 20:00 Ethyl Alcohol < 10 mg/dL (0-10) 03/22/17 20:06 RPR NONREACTIVE (NONREACTIVE) 03/22/17 20:06 - Physical Exam Vitals and I&O: Vital Signs Temp 98 F 03/30/17 06:50 Pulse 80 03/30/17 06:50 Resp 18 03/30/17 06:50 BP 116/76 03/30/17 06:50 Pulse Ox 98 03/30/17 06:50 Intake & Output 03/29/17 03/30/17 03/30/17 18:59 06:59 18:59 Intake Total 1200 Balance 1200 Intake: Oral 1200 Other: # Voids 4 1 # Bowel Movements 1 Active Medications: Current Medications Acetaminophen (Tylenol) 650 mg PO Q4HR PRN PRN Reason: Pain (Moderate) Stop: 05/21/17 22:04 Acetaminophen (Tylenol Extra Strength) 500 mg PO Q4HR PRN PRN Reason: Pain (Mild) Acetaminophen (Tylenol Extra Strength) 1,000 mg PO Q4HR PRN PRN Reason: Pain (Severe) Al Hydrox/Mg Hydrox/Simethicone (Maalox) 30 ml PO Q4HR PRN PRN Reason: GI DISTRESS Stop: 05/21/17 22:04 Dextromethorphan/Quinidine (Nuedexta 20mg-10mg) 1 cap PO Q12H [facility] Stop: 05/28/17 20:59 Last Admin: 03/29/17 20:34 Dose: 1 cap Docusate Sodium (Colace) 250 mg PO DAILY PRN PRN Reason: Constipation Stop: 05/21/17 22:04 Lorazepam (Ativan) 1 mg PO Q6HR PRN PRN Reason: Anxiety Stop: 05/28/17 15:15 Multivitamins/Vitamin C (Theragran) 1 tab PO DAILY [facility] Stop: 05/22/17 08:59 Last Admin: 03/30/17 08:39 Dose: Not Given Pantoprazole Sodium (Protonix) 40 mg PO DAILY [facility] Stop: 05/22/17 08:59 Last Admin: 03/29/17 08:07 Dose: 40 mg Potassium Chloride (Klor-Con) 10 meq PO DAILY [facility] Stop: 05/22/17 08:59 Last Admin: 03/29/17 08:07 Dose: 10 meq Quetiapine Fumarate (Seroquel) 400 mg PO HS [facility] PRN Reason: Protocol Stop: 05/22/17 20:59 Last Admin: 03/29/17 20:34 Dose: 400 mg Sodium Phosphate (Fleet Enema) 135 ml RC Q72HR PRN PRN Reason: Constipation Stop: 05/21/17 22:04 Topiramate (Topamax) 75 mg PO BID [facility] Stop: 05/22/17 08:59 Last Admin: 03/29/17 16:26 Dose: Not Given General: No acute distress HEENT: Atraumatic Cardiovascular: Regular rate, Normal S1, Normal S2 - Procedures Procedures: Procedures Procedure Code Date GROUP PSYCHOTHERAPY 07477 08/19/15 GROUP PSYCHOTHERAPY GZHZZZZ 08/19/15 Assessment/Plan - Problem List Patient Problems: All Active Problems Agitation (Acute) R45.1 Cerebral palsy (Acute) G80.9 Hypertension (Acute) I10 Pseudobulbar affect (Acute) F48.2 Seizure (Acute) R56.9 Traumatic brain injury (Acute) S06.9X9A UTI (urinary tract infection) (Acute) - Plan Plan: as per psych as problems arise Nutritional Asmnt/Malnutr-PDOC - Dietary Evaluation Malnutrition Findings (Please click <Entered> for more info): Nutritional Asmnt/Malnutrition Start: 03/24/17 15: 19 Text: Status: Complete Freq: Document 03/24/17 15:19 GSUN (Rec: 03/24/17 15:28 GSUN [email or web address]) Nutritional Asmnt/Malnutrition Patient General Information Nutritional Screening Diagnosis Diagnosis ER: aggressive behavior, increased agitation Pertinent Medical Hx/Surgical Hx ER: HTN, PUD/GERD, seizures, dementia, traumatic brain injury, pseudobulbar effect, schizophrenia, anxiety Subjective Information 57 year old male from SNF. Pt was slow in resposnes, alert and pleasant. Pt is edentulous , dentures bottom teeth only, denied difficulties chewing/ swallowing. Pt is thin, mild- moderate fat/muscle wasting to clavicles. Pt is unsure of UBW. Pt stated breakfast was good, denied nutritional concerns at this time. Spoke to SALES CORRESPONDENCE CLERK, SALES CORRESPONDENCE CLERK stated pt has good appetite, 100% breakfast this AM. Current Diet Order/ Nutrition Support [facility] soft chopped, QUAN Pertinent Medications Maalox, Colace, Theragran, Protonix, Klor-Con, Seroquel, Fleet Enema Pertinent Labs Reviewed. Nutritional Hx/Data Height 1.73 m Height (Calculated Centimeters) 172.7 Current Weight (lbs) 56.835 kg Weight (Calculated Kilograms) 56.8 Weight (Calculated Grams) 76399.1 [place] Body Weight 154 Weight Status Approriate GI Symptoms Food Allergies No Usual diet at home [facility] SNF: [facility] soft Skin Integrity/Comment: Jose 17. Skin intact. Estimated Nutritional Goals BEE in Kcals: Using Current wt Calories/Kcals/Kg CBW 125.3lb/57kg Kcals Calculated 1425-1710kcal (25-30kcal/kg) Protein: Using Current wt Protein Calculated 57-68g (1-1.2g/kg) Fluid: ml 1425-1710ml (1ml/kcal) Nutritional Problem 1. Problem Problem No nutritional problem at this time. Intervention/Recommendation Comments 1. Continue with current diet order. Encourage PO intake. 2. Nursing staff to record %PO intake, no records since adm. 3. Monitor weight, pt is overall thin with mild- moderate wasting noted. Expected Outcomes/Goals Expected Outcomes/Goals 1. PO intake to meet 100% of estimated nutritional needs.
[2017-03-30] MEDS: Dextromethorphan/Quinidine 20mg/10mg Cap PO SCH ×2 (10:08→20:45)
[2017-03-30] MEDS: Potassium Chloride 10 mEq ER Tab PO SCH (10:09)
[2017-03-30] MEDS: Pantoprazole 40 mg EC Tab PO SCH (10:09)
[2017-03-31] MEDS: Potassium Chloride 10 mEq ER Tab PO SCH (09:34)
[2017-03-31] MEDS: Dextromethorphan/Quinidine 20mg/10mg Cap PO SCH ×2 (09:34→21:37)
[2017-03-31] MEDS: Pantoprazole 40 mg EC Tab PO SCH (09:34)
[2017-03-31] MEDS: Multivitamin Tab PO SCH (09:34)
--- NOTE | 2017-03-31 09:44 | General Progress Note ---
Subjective - Review of Systems Events since last encounter: no distress Objective - Results Result Diagrams: 03/22/17 20:06 03/22/17 20:06 Recent Labs: Laboratory Last Values WBC 4.9 Th/cmm (4.8-10.8) D 03/22/17 20:06 RBC 4.54 Mil/cmm (4.30-5.70) 03/22/17 20:06 Hgb 13.4 gm/dL (13.2-17.3) 03/22/17 20:06 Hct 40.9 % (39.0-49.0) 03/22/17 20:06 MCV 90.0 fl (80-99) 03/22/17 20:06 MCH 29.5 pg (26.0-30.0) 03/22/17 20:06 MCHC Differential 32.7 pg (28.0-36.0) 03/22/17 20:06 RDW 13.2 % (11.5-20.0) 03/22/17 20:06 Plt Count 243 Th/cmm (150-400) 03/22/17 20:06 MPV 7.9 fl 03/22/17 20:06 Neutrophils % 50.9 % (40.0-80.0) 03/22/17 20:06 Lymphocytes % 31.7 % (20.0-50.0) 03/22/17 20:06 Monocytes % 10.4 % (2.0-10.0) H 03/22/17 20:06 Eosinophils % 6.2 % (0.0-5.0) H 03/22/17 20:06 Basophils % 0.8 % (0.0-2.0) 03/22/17 20:06 Sodium 136 mEq/L (136-145) 03/22/17 20:06 Potassium 3.4 mEq/L (3.5-5.1) L 03/22/17 20:06 Chloride 105 mEq/L (98-107) 03/22/17 20:06 Carbon Dioxide 27.8 mEq/L (21.0-31.0) 03/22/17 20:06 Anion Gap 6.6 (7.0-16.0) L 03/22/17 20:06 BUN 15 mg/dL (7-25) 03/22/17 20:06 Creatinine 0.9 mg/dL (0.7-1.3) 03/22/17 20:06 Est GFR ( Amer) > 60.0 ml/min (>90) 03/22/17 20:06 Est GFR (Non-Af Amer) > 60.0 ml/min 03/22/17 20:06 BUN/Creatinine Ratio 16.7 03/22/17 20:06 Glucose 96 mg/dL (70-105) 03/22/17 20:06 Calcium 9.5 mg/dL (8.6-10.3) 03/22/17 20:06 Total Bilirubin 0.4 mg/dL (0.3-1.0) 03/22/17 20:06 AST 17 U/L (13-39) 03/22/17 20:06 ALT 7 U/L (7-52) 03/22/17 20:06 Alkaline Phosphatase 67 U/L (34-104) 03/22/17 20:06 Total Protein 6.7 gm/dL (6.0-8.3) 03/22/17 20:06 Albumin 3.9 gm/dL (4.2-5.5) L 03/22/17 20:06 Globulin 2.8 gm/dL 03/22/17 20:06 Albumin/Globulin Ratio 1.4 (1.0-1.8) 03/22/17 20:06 Triglycerides 75 mg/dL (<150) 03/22/17 20:06 Cholesterol 119 mg/dL (<200) 03/22/17 20:06 LDL Cholesterol Direct 52 mg/dL (75-193) L 03/22/17 20:06 HDL Cholesterol 51 mg/dL (23-92) 03/22/17 20:06 TSH 0.40 uIU/ml (0.34-5.60) 03/22/17 20:06 Urine Source CLEAN C 03/22/17 20:00 Urine Color YELLOW 03/22/17 20:00 Urine Clarity CLEAR (CLEAR) 03/22/17 20:00 Urine pH 7.0 03/22/17 20:00 Ur Specific [place] 1.020 (1.005-1.030) 03/22/17 20:00 Urine Protein NEGATIVE mg/dL (NEGATIVE) 03/22/17 20:00 Urine Glucose (UA) NEGATIVE mg/dL (NEGATIVE) 03/22/17 20:00 Urine Ketones NEGATIVE mg/dL (NEGATIVE) 03/22/17 20:00 Urine Blood NEGATIVE (NEGATIVE) 03/22/17 20:00 Urine Nitrate NEGATIVE (NEGATIVE) 03/22/17 20:00 Urine Bilirubin NEGATIVE (NEGATIVE) 03/22/17 20:00 Urine Urobilinogen 0.2 E.U./dL (0.2 - 1.0) 03/22/17 20:00 Ur Leukocyte Esterase NEGATIVE (NEGATIVE) 03/22/17 20:00 Urine RBC NONE SEEN /hpf (0-5) 03/22/17 20:00 Urine WBC NONE SEEN /hpf (0-5) 03/22/17 20:00 Ur Epithelial Cells NONE SEEN /lpf (FEW) 03/22/17 20:00 Urine Bacteria NONE SEEN /hpf (NONE SEEN) 03/22/17 20:00 Salicylates < 25.0 mg/L (30.0-100.0) L 03/22/17 20:06 Urine Opiates Screen NEGATIVE (NEGATIVE) 03/22/17 20:00 Urine Methadone Screen NEGATIVE (NEGATIVE) 03/22/17 20:00 Acetaminophen < 10.0 ug/mL (10.0-30.0) L 03/22/17 20:06 Ur Barbiturates Screen NEGATIVE (NEGATIVE) 03/22/17 20:00 Ur Tricyclics Screen POSITIVE (NEGATIVE) H 03/22/17 20:00 Ur Phencyclidine Scrn NEGATIVE (NEGATIVE) 03/22/17 20:00 Amphetamines Screen NEGATIVE (NEGATIVE) 03/22/17 20:00 U Methamphetamines Scrn NEGATIVE (NEGATIVE) 03/22/17 20:00 U Benzodiazepines Scrn POSITIVE (NEGATIVE) H 03/22/17 20:00 U Cocaine Metab Screen NEGATIVE (NEGATIVE) 03/22/17 20:00 U Cannabinoids Screen NEGATIVE (NEGATIVE) 03/22/17 20:00 Ethyl Alcohol < 10 mg/dL (0-10) 03/22/17 20:06 RPR NONREACTIVE (NONREACTIVE) 03/22/17 20:06 - Physical Exam Vitals and I&O: Vital Signs Temp 98.7 F 03/31/17 06:46 Pulse 65 03/31/17 06:46 Resp 19 03/31/17 06:46 BP 99/60 03/31/17 06:46 Pulse Ox 98 03/31/17 06:46 Intake & Output 03/30/17 03/31/17 03/31/17 18:59 06:59 18:59 Intake Total 900 120 Balance 900 120 Intake: Oral 900 120 Other: # Voids 3 3 # Bowel Movements 0 0 Active Medications: Current Medications Acetaminophen (Tylenol) 650 mg PO Q4HR PRN PRN Reason: Pain (Moderate) Stop: 05/21/17 22:04 Acetaminophen (Tylenol Extra Strength) 500 mg PO Q4HR PRN PRN Reason: Pain (Mild) Acetaminophen (Tylenol Extra Strength) 1,000 mg PO Q4HR PRN PRN Reason: Pain (Severe) Al Hydrox/Mg Hydrox/Simethicone (Maalox) 30 ml PO Q4HR PRN PRN Reason: GI DISTRESS Stop: 05/21/17 22:04 Dextromethorphan/Quinidine (Nuedexta 20mg-10mg) 1 cap PO Q12H JORGITO Stop: 05/28/17 20:59 Last Admin: 03/30/17 20:45 Dose: 1 cap Docusate Sodium (Colace) 250 mg PO DAILY PRN PRN Reason: Constipation Stop: 05/21/17 22:04 Lorazepam (Ativan) 1 mg PO Q6HR PRN PRN Reason: Anxiety Stop: 05/28/17 15:15 Last Admin: 03/30/17 11:00 Dose: 1 mg Multivitamins/Vitamin C (Theragran) 1 tab PO DAILY JORGITO Stop: 05/22/17 08:59 Last Admin: 03/30/17 08:39 Dose: Not Given Pantoprazole Sodium (Protonix) 40 mg PO DAILY JORGITO Stop: 05/22/17 08:59 Last Admin: 03/30/17 10:09 Dose: Not Given Potassium Chloride (Klor-Con) 10 meq PO DAILY JORGITO Stop: 05/22/17 08:59 Last Admin: 03/30/17 10:09 Dose: Not Given Quetiapine Fumarate (Seroquel) 400 mg PO HS JORGITO PRN Reason: Protocol Stop: 05/22/17 20:59 Last Admin: 03/30/17 20:45 Dose: 400 mg Sodium Phosphate (Fleet Enema) 135 ml RC Q72HR PRN PRN Reason: Constipation Stop: 05/21/17 22:04 Topiramate (Topamax) 75 mg PO BID JORGITO Stop: 05/22/17 08:59 Last Admin: 03/30/17 17:55 Dose: 75 mg General: No acute distress HEENT: Atraumatic Neck: Supple, no Thyromegaly Cardiovascular: Regular rate, Normal S1, Normal S2 - Procedures Procedures: Procedures Procedure Code Date GROUP PSYCHOTHERAPY 97965 08/19/15 GROUP PSYCHOTHERAPY GZHZZZZ 08/19/15 Assessment/Plan - Problem List Patient Problems: All Active Problems Agitation (Acute) R45.1 Cerebral palsy (Acute) G80.9 Hypertension (Acute) I10 Pseudobulbar affect (Acute) F48.2 Seizure (Acute) R56.9 Traumatic brain injury (Acute) S06.9X9A UTI (urinary tract infection) (Acute) - Plan Plan: as per psych as problems arise Nutritional Asmnt/Malnutr-PDOC - Dietary Evaluation Malnutrition Findings (Please click <Entered> for more info): Nutritional Asmnt/Malnutrition Start: 03/24/17 15: 19 Text: Status: Complete Freq: Document 03/24/17 15:19 GSUN (Rec: 03/24/17 15:28 GSUN [email or web address]) Nutritional Asmnt/Malnutrition Patient General Information Nutritional Screening Diagnosis Diagnosis ER: aggressive behavior, increased agitation Pertinent Medical Hx/Surgical Hx ER: HTN, PUD/GERD, seizures, dementia, traumatic brain injury, pseudobulbar effect, schizophrenia, anxiety Subjective Information 57 year old male from SNF. Pt was slow in resposnes, alert and pleasant. Pt is edentulous , dentures bottom teeth only, denied difficulties chewing/ swallowing. Pt is thin, mild- moderate fat/muscle wasting to clavicles. Pt is unsure of UBW. Pt stated breakfast was good, denied nutritional concerns at this time. Spoke to BRIM BUSTER, BRIM BUSTER stated pt has good appetite, 100% breakfast this AM. Current Diet Order/ Nutrition Support [facility] soft chopped, QUAN Pertinent Medications Maalox, Colace, Theragran, Protonix, Klor-Con, Seroquel, Fleet Enema Pertinent Labs Reviewed. Nutritional Hx/Data Height 1.73 m Height (Calculated Centimeters) 172.7 Current Weight (lbs) 56.835 kg Weight (Calculated Kilograms) 56.8 Weight (Calculated Grams) 28087.1 [place] Body Weight 154 Weight Status Approriate GI Symptoms Food Allergies No Usual diet at home [facility] SNF: [facility] soft Skin Integrity/Comment: Jose 17. Skin intact. Estimated Nutritional Goals BEE in Kcals: Using Current wt Calories/Kcals/Kg CBW 125.3lb/57kg Kcals Calculated 1425-1710kcal (25-30kcal/kg) Protein: Using Current wt Protein Calculated 57-68g (1-1.2g/kg) Fluid: ml 1425-1710ml (1ml/kcal) Nutritional Problem 1. Problem Problem No nutritional problem at this time. Intervention/Recommendation Comments 1. Continue with current diet order. Encourage PO intake. 2. Nursing staff to record %PO intake, no records since adm. 3. Monitor weight, pt is overall thin with mild- moderate wasting noted. Expected Outcomes/Goals Expected Outcomes/Goals 1. PO intake to meet 100% of estimated nutritional needs.
[2017-04-01] MEDS: Potassium Chloride 10 mEq ER Tab PO SCH (09:01)
[2017-04-01] MEDS: Multivitamin Tab PO SCH (09:02)
[2017-04-01] MEDS: Pantoprazole 40 mg EC Tab PO SCH (09:02)
[2017-04-01] MEDS: Dextromethorphan/Quinidine 20mg/10mg Cap PO SCH ×2 (09:03→20:41)
[2017-04-02] MEDS: Dextromethorphan/Quinidine 20mg/10mg Cap PO SCH ×3 (08:58→20:22)
[2017-04-02] MEDS: Multivitamin Tab PO SCH ×2 (08:59→09:09)
[2017-04-02] MEDS: Pantoprazole 40 mg EC Tab PO SCH ×2 (08:59→09:09)
[2017-04-02] MEDS: Potassium Chloride 10 mEq ER Tab PO SCH ×2 (08:59→09:09)
--- NOTE | 2017-04-02 10:06 | General Progress Note ---
Subjective - Review of Systems Events since last encounter: no distress irritable Objective - Results Result Diagrams: 03/22/17 20:06 03/22/17 20:06 Recent Labs: Laboratory Last Values WBC 4.9 Th/cmm (4.8-10.8) D 03/22/17 20:06 RBC 4.54 Mil/cmm (4.30-5.70) 03/22/17 20:06 Hgb 13.4 gm/dL (13.2-17.3) 03/22/17 20:06 Hct 40.9 % (39.0-49.0) 03/22/17 20:06 MCV 90.0 fl (80-99) 03/22/17 20:06 MCH 29.5 pg (26.0-30.0) 03/22/17 20:06 MCHC Differential 32.7 pg (28.0-36.0) 03/22/17 20:06 RDW 13.2 % (11.5-20.0) 03/22/17 20:06 Plt Count 243 Th/cmm (150-400) 03/22/17 20:06 MPV 7.9 fl 03/22/17 20:06 Neutrophils % 50.9 % (40.0-80.0) 03/22/17 20:06 Lymphocytes % 31.7 % (20.0-50.0) 03/22/17 20:06 Monocytes % 10.4 % (2.0-10.0) H 03/22/17 20:06 Eosinophils % 6.2 % (0.0-5.0) H 03/22/17 20:06 Basophils % 0.8 % (0.0-2.0) 03/22/17 20:06 Sodium 136 mEq/L (136-145) 03/22/17 20:06 Potassium 3.4 mEq/L (3.5-5.1) L 03/22/17 20:06 Chloride 105 mEq/L (98-107) 03/22/17 20:06 Carbon Dioxide 27.8 mEq/L (21.0-31.0) 03/22/17 20:06 Anion Gap 6.6 (7.0-16.0) L 03/22/17 20:06 BUN 15 mg/dL (7-25) 03/22/17 20:06 Creatinine 0.9 mg/dL (0.7-1.3) 03/22/17 20:06 Est GFR ( Amer) > 60.0 ml/min (>90) 03/22/17 20:06 Est GFR (Non-Af Amer) > 60.0 ml/min 03/22/17 20:06 BUN/Creatinine Ratio 16.7 03/22/17 20:06 Glucose 96 mg/dL (70-105) 03/22/17 20:06 Calcium 9.5 mg/dL (8.6-10.3) 03/22/17 20:06 Total Bilirubin 0.4 mg/dL (0.3-1.0) 03/22/17 20:06 AST 17 U/L (13-39) 03/22/17 20:06 ALT 7 U/L (7-52) 03/22/17 20:06 Alkaline Phosphatase 67 U/L (34-104) 03/22/17 20:06 Total Protein 6.7 gm/dL (6.0-8.3) 03/22/17 20:06 Albumin 3.9 gm/dL (4.2-5.5) L 03/22/17 20:06 Globulin 2.8 gm/dL 03/22/17 20:06 Albumin/Globulin Ratio 1.4 (1.0-1.8) 03/22/17 20:06 Triglycerides 75 mg/dL (<150) 03/22/17 20:06 Cholesterol 119 mg/dL (<200) 03/22/17 20:06 LDL Cholesterol Direct 52 mg/dL (75-193) L 03/22/17 20:06 HDL Cholesterol 51 mg/dL (23-92) 03/22/17 20:06 TSH 0.40 uIU/ml (0.34-5.60) 03/22/17 20:06 Urine Source CLEAN C 03/22/17 20:00 Urine Color YELLOW 03/22/17 20:00 Urine Clarity CLEAR (CLEAR) 03/22/17 20:00 Urine pH 7.0 03/22/17 20:00 Ur Specific [place] 1.020 (1.005-1.030) 03/22/17 20:00 Urine Protein NEGATIVE mg/dL (NEGATIVE) 03/22/17 20:00 Urine Glucose (UA) NEGATIVE mg/dL (NEGATIVE) 03/22/17 20:00 Urine Ketones NEGATIVE mg/dL (NEGATIVE) 03/22/17 20:00 Urine Blood NEGATIVE (NEGATIVE) 03/22/17 20:00 Urine Nitrate NEGATIVE (NEGATIVE) 03/22/17 20:00 Urine Bilirubin NEGATIVE (NEGATIVE) 03/22/17 20:00 Urine Urobilinogen 0.2 E.U./dL (0.2 - 1.0) 03/22/17 20:00 Ur Leukocyte Esterase NEGATIVE (NEGATIVE) 03/22/17 20:00 Urine RBC NONE SEEN /hpf (0-5) 03/22/17 20:00 Urine WBC NONE SEEN /hpf (0-5) 03/22/17 20:00 Ur Epithelial Cells NONE SEEN /lpf (FEW) 03/22/17 20:00 Urine Bacteria NONE SEEN /hpf (NONE SEEN) 03/22/17 20:00 Salicylates < 25.0 mg/L (30.0-100.0) L 03/22/17 20:06 Urine Opiates Screen NEGATIVE (NEGATIVE) 03/22/17 20:00 Urine Methadone Screen NEGATIVE (NEGATIVE) 03/22/17 20:00 Acetaminophen < 10.0 ug/mL (10.0-30.0) L 03/22/17 20:06 Ur Barbiturates Screen NEGATIVE (NEGATIVE) 03/22/17 20:00 Ur Tricyclics Screen POSITIVE (NEGATIVE) H 03/22/17 20:00 Ur Phencyclidine Scrn NEGATIVE (NEGATIVE) 03/22/17 20:00 Amphetamines Screen NEGATIVE (NEGATIVE) 03/22/17 20:00 U Methamphetamines Scrn NEGATIVE (NEGATIVE) 03/22/17 20:00 U Benzodiazepines Scrn POSITIVE (NEGATIVE) H 03/22/17 20:00 U Cocaine Metab Screen NEGATIVE (NEGATIVE) 03/22/17 20:00 U Cannabinoids Screen NEGATIVE (NEGATIVE) 03/22/17 20:00 Ethyl Alcohol < 10 mg/dL (0-10) 03/22/17 20:06 RPR NONREACTIVE (NONREACTIVE) 03/22/17 20:06 - Physical Exam Vitals and I&O: Vital Signs Temp 97.9 F 04/01/17 16:37 Pulse 82 04/01/17 16:37 Resp 20 04/01/17 16:37 BP 103/65 04/01/17 16:37 Pulse Ox 98 04/01/17 16:37 Intake & Output 04/01/17 04/02/17 04/02/17 18:59 06:59 18:59 Intake Total 800 Balance 800 Intake: Oral 800 Other: # Voids 4 # Bowel Movements 2 Active Medications: Current Medications Acetaminophen (Tylenol) 650 mg PO Q4HR PRN PRN Reason: Pain (Moderate) Stop: 05/21/17 22:04 Acetaminophen (Tylenol Extra Strength) 500 mg PO Q4HR PRN PRN Reason: Pain (Mild) Acetaminophen (Tylenol Extra Strength) 1,000 mg PO Q4HR PRN PRN Reason: Pain (Severe) Al Hydrox/Mg Hydrox/Simethicone (Maalox) 30 ml PO Q4HR PRN PRN Reason: GI DISTRESS Stop: 05/21/17 22:04 Dextromethorphan/Quinidine (Nuedexta 20mg-10mg) 1 cap PO Q12H JORGITO Stop: 05/28/17 20:59 Last Admin: 04/02/17 09:10 Dose: Not Given Docusate Sodium (Colace) 250 mg PO DAILY PRN PRN Reason: Constipation Stop: 05/21/17 22:04 Lorazepam (Ativan) 1 mg PO Q6HR PRN PRN Reason: Anxiety Stop: 05/28/17 15:15 Last Admin: 04/02/17 08:59 Dose: 1 mg Multivitamins/Vitamin C (Theragran) 1 tab PO DAILY JORGITO Stop: 05/22/17 08:59 Last Admin: 04/02/17 09:09 Dose: Not Given Pantoprazole Sodium (Protonix) 40 mg PO DAILY JORGITO Stop: 05/22/17 08:59 Last Admin: 04/02/17 09:09 Dose: Not Given Potassium Chloride (Klor-Con) 10 meq PO DAILY JORGITO Stop: 05/22/17 08:59 Last Admin: 04/02/17 09:09 Dose: Not Given Quetiapine Fumarate (Seroquel) 400 mg PO HS JORGITO PRN Reason: Protocol Stop: 05/22/17 20:59 Last Admin: 04/01/17 20:41 Dose: 400 mg Quetiapine Fumarate (Seroquel) 25 mg PO BID JORGITO PRN Reason: Protocol Stop: 05/30/17 16:59 Last Admin: 04/02/17 09:08 Dose: Not Given Sodium Phosphate (Fleet Enema) 135 ml RC Q72HR PRN PRN Reason: Constipation Stop: 05/21/17 22:04 Topiramate (Topamax) 75 mg PO BID JORGITO Stop: 05/22/17 08:59 Last Admin: 04/02/17 09:09 Dose: Not Given General: No acute distress HEENT: Atraumatic Neck: Supple, no Thyromegaly Cardiovascular: Regular rate, Normal S1, Normal S2 - Procedures Procedures: Procedures Procedure Code Date GROUP PSYCHOTHERAPY 45958 08/19/15 GROUP PSYCHOTHERAPY GZHZZZZ 08/19/15 Assessment/Plan - Problem List Patient Problems: All Active Problems Agitation (Acute) R45.1 Cerebral palsy (Acute) G80.9 Hypertension (Acute) I10 Pseudobulbar affect (Acute) F48.2 Seizure (Acute) R56.9 Traumatic brain injury (Acute) S06.9X9A UTI (urinary tract infection) (Acute) - Plan Plan: as per psych as problems arise Nutritional Asmnt/Malnutr-PDOC - Dietary Evaluation Malnutrition Findings (Please click <Entered> for more info): Nutritional Asmnt/Malnutrition Start: 03/24/17 15: 19 Text: Status: Complete Freq: Document 03/24/17 15:19 GSUN (Rec: 03/24/17 15:28 GSUN [email or web address]) Nutritional Asmnt/Malnutrition Patient General Information Nutritional Screening Diagnosis Diagnosis ER: aggressive behavior, increased agitation Pertinent Medical Hx/Surgical Hx ER: HTN, PUD/GERD, seizures, dementia, traumatic brain injury, pseudobulbar effect, schizophrenia, anxiety Subjective Information 57 year old male from SNF. Pt was slow in resposnes, alert and pleasant. Pt is edentulous , dentures bottom teeth only, denied difficulties chewing/ swallowing. Pt is thin, mild- moderate fat/muscle wasting to clavicles. Pt is unsure of UBW. Pt stated breakfast was good, denied nutritional concerns at this time. Spoke to EXHIBIT SPECIALIST, EXHIBIT SPECIALIST stated pt has good appetite, 100% breakfast this AM. Current Diet Order/ Nutrition Support [facility] soft chopped, QUAN Pertinent Medications Maalox, Colace, Theragran, Protonix, Klor-Con, Seroquel, Fleet Enema Pertinent Labs Reviewed. Nutritional Hx/Data Height 1.73 m Height (Calculated Centimeters) 172.7 Current Weight (lbs) 56.835 kg Weight (Calculated Kilograms) 56.8 Weight (Calculated Grams) 74642.1 [place] Body Weight 154 Weight Status Approriate GI Symptoms Food Allergies No Usual diet at home [facility] SNF: [facility] soft Skin Integrity/Comment: Jose 17. Skin intact. Estimated Nutritional Goals BEE in Kcals: Using Current wt Calories/Kcals/Kg CBW 125.3lb/57kg Kcals Calculated 1425-1710kcal (25-30kcal/kg) Protein: Using Current wt Protein Calculated 57-68g (1-1.2g/kg) Fluid: ml 1425-1710ml (1ml/kcal) Nutritional Problem 1. Problem Problem No nutritional problem at this time. Intervention/Recommendation Comments 1. Continue with current diet order. Encourage PO intake. 2. Nursing staff to record %PO intake, no records since adm. 3. Monitor weight, pt is overall thin with mild- moderate wasting noted. Expected Outcomes/Goals Expected Outcomes/Goals 1. PO intake to meet 100% of estimated nutritional needs.
[2017-04-03] MEDS: Dextromethorphan/Quinidine 20mg/10mg Cap PO SCH ×2 (09:49→21:21)
[2017-04-03] MEDS: Pantoprazole 40 mg EC Tab PO SCH (09:49)
[2017-04-03] MEDS: Potassium Chloride 10 mEq ER Tab PO SCH (09:50)
[2017-04-03] MEDS: Multivitamin Tab PO SCH (09:50)
--- NOTE | 2017-04-03 10:49 | General Progress Note ---
Subjective - Review of Systems Service Date: 04/03/17 Subjective: pt is in no acute distress a bit agitated no other complaints Objective - Results Result Diagrams: 03/22/17 20:06 03/22/17 20:06 Recent Labs: Laboratory Last Values WBC 4.9 Th/cmm (4.8-10.8) D 03/22/17 20:06 RBC 4.54 Mil/cmm (4.30-5.70) 03/22/17 20:06 Hgb 13.4 gm/dL (13.2-17.3) 03/22/17 20:06 Hct 40.9 % (39.0-49.0) 03/22/17 20:06 MCV 90.0 fl (80-99) 03/22/17 20:06 MCH 29.5 pg (26.0-30.0) 03/22/17 20:06 MCHC Differential 32.7 pg (28.0-36.0) 03/22/17 20:06 RDW 13.2 % (11.5-20.0) 03/22/17 20:06 Plt Count 243 Th/cmm (150-400) 03/22/17 20:06 MPV 7.9 fl 03/22/17 20:06 Neutrophils % 50.9 % (40.0-80.0) 03/22/17 20:06 Lymphocytes % 31.7 % (20.0-50.0) 03/22/17 20:06 Monocytes % 10.4 % (2.0-10.0) H 03/22/17 20:06 Eosinophils % 6.2 % (0.0-5.0) H 03/22/17 20:06 Basophils % 0.8 % (0.0-2.0) 03/22/17 20:06 Sodium 136 mEq/L (136-145) 03/22/17 20:06 Potassium 3.4 mEq/L (3.5-5.1) L 03/22/17 20:06 Chloride 105 mEq/L (98-107) 03/22/17 20:06 Carbon Dioxide 27.8 mEq/L (21.0-31.0) 03/22/17 20:06 Anion Gap 6.6 (7.0-16.0) L 03/22/17 20:06 BUN 15 mg/dL (7-25) 03/22/17 20:06 Creatinine 0.9 mg/dL (0.7-1.3) 03/22/17 20:06 Est GFR ( Amer) > 60.0 ml/min (>90) 03/22/17 20:06 Est GFR (Non-Af Amer) > 60.0 ml/min 03/22/17 20:06 BUN/Creatinine Ratio 16.7 03/22/17 20:06 Glucose 96 mg/dL (70-105) 03/22/17 20:06 Calcium 9.5 mg/dL (8.6-10.3) 03/22/17 20:06 Total Bilirubin 0.4 mg/dL (0.3-1.0) 03/22/17 20:06 AST 17 U/L (13-39) 03/22/17 20:06 ALT 7 U/L (7-52) 03/22/17 20:06 Alkaline Phosphatase 67 U/L (34-104) 03/22/17 20:06 Total Protein 6.7 gm/dL (6.0-8.3) 03/22/17 20:06 Albumin 3.9 gm/dL (4.2-5.5) L 03/22/17 20:06 Globulin 2.8 gm/dL 03/22/17 20:06 Albumin/Globulin Ratio 1.4 (1.0-1.8) 03/22/17 20:06 Triglycerides 75 mg/dL (<150) 03/22/17 20:06 Cholesterol 119 mg/dL (<200) 03/22/17 20:06 LDL Cholesterol Direct 52 mg/dL (75-193) L 03/22/17 20:06 HDL Cholesterol 51 mg/dL (23-92) 03/22/17 20:06 TSH 0.40 uIU/ml (0.34-5.60) 03/22/17 20:06 Urine Source CLEAN C 03/22/17 20:00 Urine Color YELLOW 03/22/17 20:00 Urine Clarity CLEAR (CLEAR) 03/22/17 20:00 Urine pH 7.0 03/22/17 20:00 Ur Specific [place] 1.020 (1.005-1.030) 03/22/17 20:00 Urine Protein NEGATIVE mg/dL (NEGATIVE) 03/22/17 20:00 Urine Glucose (UA) NEGATIVE mg/dL (NEGATIVE) 03/22/17 20:00 Urine Ketones NEGATIVE mg/dL (NEGATIVE) 03/22/17 20:00 Urine Blood NEGATIVE (NEGATIVE) 03/22/17 20:00 Urine Nitrate NEGATIVE (NEGATIVE) 03/22/17 20:00 Urine Bilirubin NEGATIVE (NEGATIVE) 03/22/17 20:00 Urine Urobilinogen 0.2 E.U./dL (0.2 - 1.0) 03/22/17 20:00 Ur Leukocyte Esterase NEGATIVE (NEGATIVE) 03/22/17 20:00 Urine RBC NONE SEEN /hpf (0-5) 03/22/17 20:00 Urine WBC NONE SEEN /hpf (0-5) 03/22/17 20:00 Ur Epithelial Cells NONE SEEN /lpf (FEW) 03/22/17 20:00 Urine Bacteria NONE SEEN /hpf (NONE SEEN) 03/22/17 20:00 Salicylates < 25.0 mg/L (30.0-100.0) L 03/22/17 20:06 Urine Opiates Screen NEGATIVE (NEGATIVE) 03/22/17 20:00 Urine Methadone Screen NEGATIVE (NEGATIVE) 03/22/17 20:00 Acetaminophen < 10.0 ug/mL (10.0-30.0) L 03/22/17 20:06 Ur Barbiturates Screen NEGATIVE (NEGATIVE) 03/22/17 20:00 Ur Tricyclics Screen POSITIVE (NEGATIVE) H 03/22/17 20:00 Ur Phencyclidine Scrn NEGATIVE (NEGATIVE) 03/22/17 20:00 Amphetamines Screen NEGATIVE (NEGATIVE) 03/22/17 20:00 U Methamphetamines Scrn NEGATIVE (NEGATIVE) 03/22/17 20:00 U Benzodiazepines Scrn POSITIVE (NEGATIVE) H 03/22/17 20:00 U Cocaine Metab Screen NEGATIVE (NEGATIVE) 03/22/17 20:00 U Cannabinoids Screen NEGATIVE (NEGATIVE) 03/22/17 20:00 Ethyl Alcohol < 10 mg/dL (0-10) 03/22/17 20:06 RPR NONREACTIVE (NONREACTIVE) 03/22/17 20:06 - Physical Exam Vitals and I&O: Vital Signs Temp 98.0 F 04/03/17 05:25 Pulse 66 04/03/17 05:25 Resp 18 04/03/17 05:25 BP 107/67 04/03/17 05:25 Pulse Ox 96 04/03/17 05:25 Active Medications: Current Medications Acetaminophen (Tylenol) 650 mg PO Q4HR PRN PRN Reason: Pain (Moderate) Stop: 05/21/17 22:04 Acetaminophen (Tylenol Extra Strength) 500 mg PO Q4HR PRN PRN Reason: Pain (Mild) Acetaminophen (Tylenol Extra Strength) 1,000 mg PO Q4HR PRN PRN Reason: Pain (Severe) Al Hydrox/Mg Hydrox/Simethicone (Maalox) 30 ml PO Q4HR PRN PRN Reason: GI DISTRESS Stop: 05/21/17 22:04 Dextromethorphan/Quinidine (Nuedexta 20mg-10mg) 1 cap PO Q12H JORGITO Stop: 05/28/17 20:59 Last Admin: 04/03/17 09:49 Dose: 1 cap Docusate Sodium (Colace) 250 mg PO DAILY PRN PRN Reason: Constipation Stop: 05/21/17 22:04 Lorazepam (Ativan) 1 mg PO Q6HR PRN PRN Reason: Anxiety Stop: 05/28/17 15:15 Last Admin: 04/02/17 08:59 Dose: 1 mg Multivitamins/Vitamin C (Theragran) 1 tab PO DAILY JORGITO Stop: 05/22/17 08:59 Last Admin: 04/03/17 09:50 Dose: 1 tab Pantoprazole Sodium (Protonix) 40 mg PO DAILY JORGITO Stop: 05/22/17 08:59 Last Admin: 04/03/17 09:49 Dose: 40 mg Potassium Chloride (Klor-Con) 10 meq PO DAILY JORGITO Stop: 05/22/17 08:59 Last Admin: 04/03/17 09:50 Dose: 10 meq Quetiapine Fumarate (Seroquel) 400 mg PO HS JORGITO PRN Reason: Protocol Stop: 05/22/17 20:59 Last Admin: 04/02/17 20:22 Dose: 400 mg Quetiapine Fumarate (Seroquel) 25 mg PO BID JORGITO PRN Reason: Protocol Stop: 05/30/17 16:59 Last Admin: 04/03/17 09:50 Dose: 25 mg Sodium Phosphate (Fleet Enema) 135 ml RC Q72HR PRN PRN Reason: Constipation Stop: 05/21/17 22:04 Topiramate (Topamax) 75 mg PO BID JORGITO Stop: 05/22/17 08:59 Last Admin: 04/03/17 09:50 Dose: 75 mg General: No acute distress HEENT: Atraumatic Neck: Supple, no Thyromegaly Cardiovascular: Regular rate, Normal S1, Normal S2 - Procedures Procedures: Procedures Procedure Code Date GROUP PSYCHOTHERAPY 38731 08/19/15 GROUP PSYCHOTHERAPY GZHZZZZ 08/19/15 Assessment/Plan - Problem List Patient Problems: All Active Problems Agitation (Acute) R45.1 Cerebral palsy (Acute) G80.9 Hypertension (Acute) I10 Pseudobulbar affect (Acute) F48.2 Seizure (Acute) R56.9 Traumatic brain injury (Acute) S06.9X9A UTI (urinary tract infection) (Acute) - Plan Plan: as per psych as problems arise Nutritional Asmnt/Malnutr-PDOC - Dietary Evaluation Malnutrition Findings (Please click <Entered> for more info): Nutritional Asmnt/Malnutrition Start: 03/24/17 15: 19 Text: Status: Complete Freq: Document 03/24/17 15:19 GSUN (Rec: 03/24/17 15:28 GSUN [email or web address]) Nutritional Asmnt/Malnutrition Patient General Information Nutritional Screening Diagnosis Diagnosis ER: aggressive behavior, increased agitation Pertinent Medical Hx/Surgical Hx ER: HTN, PUD/GERD, seizures, dementia, traumatic brain injury, pseudobulbar effect, schizophrenia, anxiety Subjective Information 57 year old male from SNF. Pt was slow in resposnes, alert and pleasant. Pt is edentulous , dentures bottom teeth only, denied difficulties chewing/ swallowing. Pt is thin, mild- moderate fat/muscle wasting to clavicles. Pt is unsure of UBW. Pt stated breakfast was good, denied nutritional concerns at this time. Spoke to ASH KIER BOILER, ASH KIER BOILER stated pt has good appetite, 100% breakfast this AM. Current Diet Order/ Nutrition Support [facility] soft chopped, QUAN Pertinent Medications Maalox, Colace, Theragran, Protonix, Klor-Con, Seroquel, Fleet Enema Pertinent Labs Reviewed. Nutritional Hx/Data Height 1.73 m Height (Calculated Centimeters) 172.7 Current Weight (lbs) 56.835 kg Weight (Calculated Kilograms) 56.8 Weight (Calculated Grams) 11352.1 [place] Body Weight 154 Weight Status Approriate GI Symptoms Food Allergies No Usual diet at home [facility] SNF: [facility] soft Skin Integrity/Comment: Jose 17. Skin intact. Estimated Nutritional Goals BEE in Kcals: Using Current wt Calories/Kcals/Kg CBW 125.3lb/57kg Kcals Calculated 1425-1710kcal (25-30kcal/kg) Protein: Using Current wt Protein Calculated 57-68g (1-1.2g/kg) Fluid: ml 1425-1710ml (1ml/kcal) Nutritional Problem 1. Problem Problem No nutritional problem at this time. Intervention/Recommendation Comments 1. Continue with current diet order. Encourage PO intake. 2. Nursing staff to record %PO intake, no records since adm. 3. Monitor weight, pt is overall thin with mild- moderate wasting noted. Expected Outcomes/Goals Expected Outcomes/Goals 1. PO intake to meet 100% of estimated nutritional needs.
[2017-04-04] MEDS: Potassium Chloride 10 mEq ER Tab PO SCH (09:21)
[2017-04-04] MEDS: Dextromethorphan/Quinidine 20mg/10mg Cap PO SCH (09:21)
[2017-04-04] MEDS: Pantoprazole 40 mg EC Tab PO SCH (09:22)
[2017-04-04] MEDS: Multivitamin Tab PO SCH (09:22)
--- NOTE | 2017-04-04 11:51 | General Progress Note ---
Subjective - Review of Systems Service Date: 04/04/17 Subjective: pt is in no acute distress denies pain or discomfort Objective - Results Result Diagrams: 03/22/17 20:06 03/22/17 20:06 Recent Labs: Laboratory Last Values WBC 4.9 Th/cmm (4.8-10.8) D 03/22/17 20:06 RBC 4.54 Mil/cmm (4.30-5.70) 03/22/17 20:06 Hgb 13.4 gm/dL (13.2-17.3) 03/22/17 20:06 Hct 40.9 % (39.0-49.0) 03/22/17 20:06 MCV 90.0 fl (80-99) 03/22/17 20:06 MCH 29.5 pg (26.0-30.0) 03/22/17 20:06 MCHC Differential 32.7 pg (28.0-36.0) 03/22/17 20:06 RDW 13.2 % (11.5-20.0) 03/22/17 20:06 Plt Count 243 Th/cmm (150-400) 03/22/17 20:06 MPV 7.9 fl 03/22/17 20:06 Neutrophils % 50.9 % (40.0-80.0) 03/22/17 20:06 Lymphocytes % 31.7 % (20.0-50.0) 03/22/17 20:06 Monocytes % 10.4 % (2.0-10.0) H 03/22/17 20:06 Eosinophils % 6.2 % (0.0-5.0) H 03/22/17 20:06 Basophils % 0.8 % (0.0-2.0) 03/22/17 20:06 Sodium 136 mEq/L (136-145) 03/22/17 20:06 Potassium 3.4 mEq/L (3.5-5.1) L 03/22/17 20:06 Chloride 105 mEq/L (98-107) 03/22/17 20:06 Carbon Dioxide 27.8 mEq/L (21.0-31.0) 03/22/17 20:06 Anion Gap 6.6 (7.0-16.0) L 03/22/17 20:06 BUN 15 mg/dL (7-25) 03/22/17 20:06 Creatinine 0.9 mg/dL (0.7-1.3) 03/22/17 20:06 Est GFR ( Amer) > 60.0 ml/min (>90) 03/22/17 20:06 Est GFR (Non-Af Amer) > 60.0 ml/min 03/22/17 20:06 BUN/Creatinine Ratio 16.7 03/22/17 20:06 Glucose 96 mg/dL (70-105) 03/22/17 20:06 Calcium 9.5 mg/dL (8.6-10.3) 03/22/17 20:06 Total Bilirubin 0.4 mg/dL (0.3-1.0) 03/22/17 20:06 AST 17 U/L (13-39) 03/22/17 20:06 ALT 7 U/L (7-52) 03/22/17 20:06 Alkaline Phosphatase 67 U/L (34-104) 03/22/17 20:06 Total Protein 6.7 gm/dL (6.0-8.3) 03/22/17 20:06 Albumin 3.9 gm/dL (4.2-5.5) L 03/22/17 20:06 Globulin 2.8 gm/dL 03/22/17 20:06 Albumin/Globulin Ratio 1.4 (1.0-1.8) 03/22/17 20:06 Triglycerides 75 mg/dL (<150) 03/22/17 20:06 Cholesterol 119 mg/dL (<200) 03/22/17 20:06 LDL Cholesterol Direct 52 mg/dL (75-193) L 03/22/17 20:06 HDL Cholesterol 51 mg/dL (23-92) 03/22/17 20:06 TSH 0.40 uIU/ml (0.34-5.60) 03/22/17 20:06 Urine Source CLEAN C 03/22/17 20:00 Urine Color YELLOW 03/22/17 20:00 Urine Clarity CLEAR (CLEAR) 03/22/17 20:00 Urine pH 7.0 03/22/17 20:00 Ur Specific [place] 1.020 (1.005-1.030) 03/22/17 20:00 Urine Protein NEGATIVE mg/dL (NEGATIVE) 03/22/17 20:00 Urine Glucose (UA) NEGATIVE mg/dL (NEGATIVE) 03/22/17 20:00 Urine Ketones NEGATIVE mg/dL (NEGATIVE) 03/22/17 20:00 Urine Blood NEGATIVE (NEGATIVE) 03/22/17 20:00 Urine Nitrate NEGATIVE (NEGATIVE) 03/22/17 20:00 Urine Bilirubin NEGATIVE (NEGATIVE) 03/22/17 20:00 Urine Urobilinogen 0.2 E.U./dL (0.2 - 1.0) 03/22/17 20:00 Ur Leukocyte Esterase NEGATIVE (NEGATIVE) 03/22/17 20:00 Urine RBC NONE SEEN /hpf (0-5) 03/22/17 20:00 Urine WBC NONE SEEN /hpf (0-5) 03/22/17 20:00 Ur Epithelial Cells NONE SEEN /lpf (FEW) 03/22/17 20:00 Urine Bacteria NONE SEEN /hpf (NONE SEEN) 03/22/17 20:00 Salicylates < 25.0 mg/L (30.0-100.0) L 03/22/17 20:06 Urine Opiates Screen NEGATIVE (NEGATIVE) 03/22/17 20:00 Urine Methadone Screen NEGATIVE (NEGATIVE) 03/22/17 20:00 Acetaminophen < 10.0 ug/mL (10.0-30.0) L 03/22/17 20:06 Ur Barbiturates Screen NEGATIVE (NEGATIVE) 03/22/17 20:00 Ur Tricyclics Screen POSITIVE (NEGATIVE) H 03/22/17 20:00 Ur Phencyclidine Scrn NEGATIVE (NEGATIVE) 03/22/17 20:00 Amphetamines Screen NEGATIVE (NEGATIVE) 03/22/17 20:00 U Methamphetamines Scrn NEGATIVE (NEGATIVE) 03/22/17 20:00 U Benzodiazepines Scrn POSITIVE (NEGATIVE) H 03/22/17 20:00 U Cocaine Metab Screen NEGATIVE (NEGATIVE) 03/22/17 20:00 U Cannabinoids Screen NEGATIVE (NEGATIVE) 03/22/17 20:00 Ethyl Alcohol < 10 mg/dL (0-10) 03/22/17 20:06 RPR NONREACTIVE (NONREACTIVE) 03/22/17 20:06 - Physical Exam Vitals and I&O: Vital Signs Temp 97.4 F 04/04/17 06:19 Pulse 78 04/04/17 06:19 Resp 20 04/04/17 06:19 BP 116/73 04/04/17 06:19 Pulse Ox 97 04/04/17 06:19 Intake & Output 04/03/17 04/04/17 04/04/17 18:59 06:59 18:59 Intake Total 1800 120 Balance 1800 120 Intake: Oral 1800 120 Other: # Voids 4 3 # Bowel Movements 0 Active Medications: Current Medications Acetaminophen (Tylenol) 650 mg PO Q4HR PRN PRN Reason: Pain (Moderate) Stop: 05/21/17 22:04 Acetaminophen (Tylenol Extra Strength) 500 mg PO Q4HR PRN PRN Reason: Pain (Mild) Acetaminophen (Tylenol Extra Strength) 1,000 mg PO Q4HR PRN PRN Reason: Pain (Severe) Al Hydrox/Mg Hydrox/Simethicone (Maalox) 30 ml PO Q4HR PRN PRN Reason: GI DISTRESS Stop: 05/21/17 22:04 Dextromethorphan/Quinidine (Nuedexta 20mg-10mg) 1 cap PO Q12H JORGITO Stop: 05/28/17 20:59 Last Admin: 04/04/17 09:21 Dose: 1 cap Docusate Sodium (Colace) 250 mg PO DAILY PRN PRN Reason: Constipation Stop: 05/21/17 22:04 Lorazepam (Ativan) 1 mg PO Q6HR PRN PRN Reason: Anxiety Stop: 05/28/17 15:15 Last Admin: 04/02/17 08:59 Dose: 1 mg Multivitamins/Vitamin C (Theragran) 1 tab PO DAILY JORGITO Stop: 05/22/17 08:59 Last Admin: 04/04/17 09:22 Dose: 1 tab Pantoprazole Sodium (Protonix) 40 mg PO DAILY JORGITO Stop: 05/22/17 08:59 Last Admin: 04/04/17 09:22 Dose: 40 mg Potassium Chloride (Klor-Con) 10 meq PO DAILY JORGITO Stop: 05/22/17 08:59 Last Admin: 04/04/17 09:21 Dose: 10 meq Quetiapine Fumarate (Seroquel) 400 mg PO HS JORGITO PRN Reason: Protocol Stop: 05/22/17 20:59 Last Admin: 04/03/17 21:21 Dose: 400 mg Quetiapine Fumarate (Seroquel) 25 mg PO BID JORGITO PRN Reason: Protocol Stop: 05/30/17 16:59 Last Admin: 04/04/17 09:22 Dose: 25 mg Sodium Phosphate (Fleet Enema) 135 ml RC Q72HR PRN PRN Reason: Constipation Stop: 05/21/17 22:04 Topiramate (Topamax) 75 mg PO BID [facility] Stop: 05/22/17 08:59 Last Admin: 04/04/17 09:22 Dose: 75 mg General: No acute distress HEENT: Atraumatic Neck: Supple, no Thyromegaly Cardiovascular: Regular rate, Normal S1, Normal S2 - Procedures Procedures: Procedures Procedure Code Date GROUP PSYCHOTHERAPY 62666 08/19/15 GROUP PSYCHOTHERAPY GZHZZZZ 08/19/15 Assessment/Plan - Problem List Patient Problems: All Active Problems Agitation (Acute) R45.1 Cerebral palsy (Acute) G80.9 Hypertension (Acute) I10 Pseudobulbar affect (Acute) F48.2 Seizure (Acute) R56.9 Traumatic brain injury (Acute) S06.9X9A UTI (urinary tract infection) (Acute) - Plan Plan: as per psych as problems arise Nutritional Asmnt/Malnutr-PDOC - Dietary Evaluation Malnutrition Findings (Please click <Entered> for more info): Nutritional Asmnt/Malnutrition Start: 03/24/17 15: 19 Text: Status: Complete Freq: Document 03/24/17 15:19 GSUN (Rec: 03/24/17 15:28 GSUN [email or web address]) Nutritional Asmnt/Malnutrition Patient General Information Nutritional Screening Diagnosis Diagnosis ER: aggressive behavior, increased agitation Pertinent Medical Hx/Surgical Hx ER: HTN, PUD/GERD, seizures, dementia, traumatic brain injury, pseudobulbar effect, schizophrenia, anxiety Subjective Information 57 year old male from SNF. Pt was slow in resposnes, alert and pleasant. Pt is edentulous , dentures bottom teeth only, denied difficulties chewing/ swallowing. Pt is thin, mild- moderate fat/muscle wasting to clavicles. Pt is unsure of UBW. Pt stated breakfast was good, denied nutritional concerns at this time. Spoke to DIGITAL ASSET SPECIALIST, DIGITAL ASSET SPECIALIST stated pt has good appetite, 100% breakfast this AM. Current Diet Order/ Nutrition Support [facility] soft chopped, QUAN Pertinent Medications Maalox, Colace, Theragran, Protonix, Klor-Con, Seroquel, Fleet Enema Pertinent Labs Reviewed. Nutritional Hx/Data Height 1.73 m Height (Calculated Centimeters) 172.7 Current Weight (lbs) 56.835 kg Weight (Calculated Kilograms) 56.8 Weight (Calculated Grams) 29323.1 [place] Body Weight 154 Weight Status Approriate GI Symptoms Food Allergies No Usual diet at home [facility] SNF: [facility] soft Skin Integrity/Comment: Jose 17. Skin intact. Estimated Nutritional Goals BEE in Kcals: Using Current wt Calories/Kcals/Kg CBW 125.3lb/57kg Kcals Calculated 1425-1710kcal (25-30kcal/kg) Protein: Using Current wt Protein Calculated 57-68g (1-1.2g/kg) Fluid: ml 1425-1710ml (1ml/kcal) Nutritional Problem 1. Problem Problem No nutritional problem at this time. Intervention/Recommendation Comments 1. Continue with current diet order. Encourage PO intake. 2. Nursing staff to record %PO intake, no records since adm. 3. Monitor weight, pt is overall thin with mild- moderate wasting noted. Expected Outcomes/Goals Expected Outcomes/Goals 1. PO intake to meet 100% of estimated nutritional needs.
== END 2017-04-04 19:32 | DRG 885 ==
LOC: ER 19:15 → GERO 21:00
PROVIDERS: ADMIT Psychiatry & Neurology Psychiatry; ATTEND Psychiatry & Neurology Psychiatry
DX: F20.9 Schizophrenia, unspecified (principal); F03.90 Unspecified dementia, unspecified severity, without behavioral disturbance, psychotic disturbance, mood disturbance, and anxiety; R56.9 Unspecified convulsions; I10 Essential (primary) hypertension; K21.9 Gastro-esophageal reflux disease without esophagitis; F48.2 Pseudobulbar affect; F41.9 Anxiety disorder, unspecified; G80.9 Cerebral palsy, unspecified; R45.1 Restlessness and agitation
CPT/HCPCS: 36415-UA; 7610; 80053-TC; 80061-TC; 80307; 80320-TC; 80329-TC; 81001-TC; 84443-TC; 85025-TC; 86592-TC; 90899; 93005; Z7610

== ENCOUNTER 2017-12-05 13:36 | Inpatient (IN) | payer MEDICARE, OTHER ==
[2017-12-05] MEDS ORDERED: Haloperidol Lactate 5 mg/mL 1mL Vial ONE (13:43)
[2017-12-05] MEDS ORDERED: Haloperidol Lactate 5 mg/mL 1mL Vial IM STA (13:45)
--- NOTE | 2017-12-05 13:51 | ED Physician Chart ---
ED Chief Complaint/HPI - Patient Information Date Seen:: 12/05/17 Time Seen:: 13:30 Chief Complaint:: Agitation History of Present Illness:: onset x 2 days of agitation, anger, and hostile behavior; no report of trauma, ALOC, AMS, LOC, H/As, neck pain, C/P, SOB, Abd. Pain, A/N/V/D/C, fever, chills, SIs, or urinary s/s Allergies:: Allergies Allergy/AdvReac Type Severity Reaction Status Date / Time No Known Allergies Allergy Verified 03/22/17 19:42 Historian:: Patient, EMS Review:: Nurse's Note Reviewed, Old Chart Reviewed, EMS run form Reviewed ED Review of Systems - Review of Systems General/Constitutional: No fever, No chills, No weight loss, No weakness, No diaphoresis, No edema, No loss of appetite Skin: No skin lesions, No rash, No bruising Head: No headache, No light-headedness Eyes: No loss of vision, No pain, No diplopia ENT: No earache, No nasal drainage, No sore throat, No tinnitus Neck: No neck pain, No swelling, No thyromegaly, No stiffness, No mass noted Cardio Vascular: No chest pain, No palpitations, No PND, No orthopnea, No edema Pulmonary: No SOB, No cough, No sputum, No wheezing GI: No nausea, No vomiting, No diarrhea, No pain, No melena, No hematochezia, No constipation, No hematemesis G/U: No dysuria, No frequency, No hematuria, No nacturia Musculoskeletal: No bone or joint pain, No back pain, No muscle pain Endocrine: No polyuria, No polydipsia Psychiatric: Prior psych history, Depression, Anxiety, No suicidal ideation, No homicidal ideation, Auditory hallucination, No visual hallucination Hematopoietic: No bruising, No lymphadenopathy Allergic/Immuno: No urticaria, No angioedema Neurological: No syncope, No focal symptoms, No weakness, No paresthesia, No headache, No seizure, No dizziness, Confusion, No vertigo ED Past Medical History - Past Medical History Obtainable: Yes Past Medical History: HTN, CAD, CVA/TIA, Dyslipidemia, Seizures, Dementia Family History: HTN Social History: Non Smoker, No Alcohol, No Drug Use, Single, Care Facility Surgical History: None Psychiatricy History: Depression, Schizophrenia, Bipolar, Dementia Medication: Reviewed Family Medical History - Family Member Mother History Unknown: Yes Ethnicity: Unknown Living Status: Unknown Hx Family Cancer: No (UNKNOWN) Hx Family Coronary Artery Disease: No (UNKNOWN) Hx Family Congestive Heart Failure: No (UNKNOWN) Hx Family Hypertension: No (UNKNOWN) Hx Family Stroke: No (UNKNOWN) Hx Family Diabetes: No (UNKNOWN) Hx Family Seizures: No (UNKNOWN) Hx Family Dementia: No (UNKNOWN) Hx Family AIDS: No (UNKNOWN) Hx Family HIV: No Hx Family COPD: No (UNKNOWN) Hx Family Hepatitis: No (UNKNOWN) Hx Family Psychiatric Problems: No (UNKNOWN) Hx Family Tuberculosis: No (UNKNOWN) ED Physical Exam - Physical Examination General/Constitutional: Awake, Well-developed, well-nourished, Alert, No distress, GCS 15, Non-toxic appearing, Ambulatory Head: Atraumatic Eyes: Lids, conjuctiva normal, PERRL, EOMI Skin: Nl inspection, No rash, No skin lesions, No ecchymosis, Well hydrated, No lymphadenopathy ENMT: External ears, nose nl, TM canals nl, Nasal exam nl, Lips, teeth, gums nl , Oropharynx nl, Tonsils nl Neck: Nontender, Full ROM w/o pain, No JVD, No nuchal rigidity, No bruit, No mass, No stridor Respiratory: Nl effort/Exclusion, Clear to Auscultation, No Wheeze/Rhonchi/Rales Cardio Vascular: RRR, No murmur, gallop, rubs, NL S1 S2, Carotid/Femoral/Distal pulses equal bilaterally GI: No tenderness/rebounding/guarding, No organomegaly, No hernia, Normal BS's, Nondistended, No mass/bruits, No McBurney tenderness : No CVA tenderness Extremities: No tenderness or effusion, Full ROM, normal strength in all extremities, No edema, Normal digits & nails Neuro/Psych: Alert/oriented, DTR's symmetric, Normal sensory exam, Normal motor strength, Judgement/insight normal, Mood normal, Normal gait, No focal deficits Other Neuro/Psych comments:: Disoriented and Confused; + Psychomotor Agitation; no SIs; Mood/Affect: Labile Misc: Normal back, No paraspinal tenderness ED Labs/Radiology/EKG Results - Lab Results Comments:: K+: 3.1 ED Septic Shock - . Is Septic Shock (SBP<90, OR Lactate>4 mmol\L) present?: No ED Reassessment (Disposition) - Reassessment Reassessment Condition:: Improved - Diagnosis Diagnosis:: Dx: Agitation; Bipolar Disorder; Schizophrenia; Psychosis; Hypokalemia; Medical Clearance; Manic-Depression - Aftercare/Follow up Instructions Aftercare/Follow-Up Instructions:: Counseled pt regarding lab results/diagnosis & need follow up, Counseled pt & family regarding lab results/diagnosis & need follow up - Patient Disposition Discharge/Transfer:: Acute Care w/in this hosp Accepting Physician:: Dr. Simon Time Called:: 1500 Time Responded:: 15:00 Admitted to:: [facility] Spoke to:: Dr. Simon Admitting Medical Physician:: Dr. Simon Admitting Psych Physician:: Dr. Boyer Condition at Disposition:: Stable, Improved
[2017-12-05 14:12] LABS: % BASOPHILS 0.9 % (0.0-2.0); % LYMPHOCYTES 48.3 % (20.0-50.0); % NEUTROPHILS 33.8 % (40.0-80.0); EOSINOPHILE ABSOLUTE 0.3 Th/cmm (0.1-0.4); HEMATOCRIT 46.1 % (41.0-60); MEAN CELL VOLUME 89.9 fl (80-99); MEAN CORPUSCULAR HEMOGLOBIN 29.4 pg (26.0-30.0); MEAN CORPUSCULAR HGB CONC 32.7 pg (28.0-36.0); MEAN PLATELET VOLUME 8.2 fl; MONOCYTE ABSOLUTE 0.5 Th/cmm (0.3-1.0); NEUTROPHILE ABSOLUTE 1.4 Th/cmm (1.8-8.0); PLATELET COUNT 252 Th/cmm (150-400); RED BLOOD COUNT 5.12 Mil/cmm (4.30-5.70); RED CELL DISTRIBUTION WIDTH 13.6 % (11.5-20.0); WHITE BLOOD COUNT 4.2 Th/cmm (4.8-10.8)
[2017-12-05 14:29] LABS: ALB/GLOB RATIO 1.4 (1.0-1.8); ALBUMIN 4.2 gm/dL (4.2-5.5); ALKALINE PHOSPHATASE 73 U/L (34-104); ANION GAP 16.3 (7.0-16.0); BILIRUBIN,TOTAL 0.5 mg/dL (0.3-1.0); BUN - UREA NITROGEN 15 mg/dL (7-25); CALCIUM SERUM 9.6 mg/dL (8.6-10.3); CARBON DIOXIDE 18.8 mEq/L (21.0-31.0); CHLORIDE 103 mEq/L (98-107); CHOLESTEROL 111 mg/dL (<200); CREATININE - SERUM 0.9 mg/dL (0.7-1.3); GFR AFRICAN-AMERICAN > 60.0 ml/min (>90); GFR NON AFRICAN-AMERICAN > 60.0 ml/min; GLUCOSE 74 mg/dL (70-105); HDL -HIGH DENSITY LIPOPROTEIN 51 mg/dL (23-92); POTASSIUM SERUM 3.1 mEq/L (3.5-5.1); SGOT 16 U/L (13-39); SGPT/ALT 8 U/L (7-52); SODIUM SERUM 135 mEq/L (136-145); TOTAL PROTEIN,SERUM 7.2 gm/dL (6.0-8.3); TRIGLYCERIDES 49 mg/dL (<150)
[2017-12-05 14:58] LABS: ACETAMINOPHEN < 10.0 ug/mL (10.0-30.0); SALICYLATES (ASPIRIN) < 25.0 mg/L (30.0-100.0)
[2017-12-05] MEDS ORDERED: Potassium Chloride 20 mEq ER Tab PO ONE ×2 (15:06→15:10)
[2017-12-05 16:33] VITALS: BP 129/84
[2017-12-05] MEDS ORDERED: Magnesium Hydroxide (MOM) 30 mL UDC PO PRN (16:36)
[2017-12-06] MEDS: Multivitamin Tab PO SCH (09:23)
--- NOTE | 2017-12-06 15:20 | History & Physical ---
ADMIT DATE: 12/06/2017 HISTORY OF PRESENT ILLNESS: The patient is a 57-year-old male with long history of bipolar disorder, dementia, degenerative joint disease, admitted to Geropsych Department at [facility] under Dr. Flores's service. The patient apparently has been very agitated and demented with acute psychosis. The patient is a very poor historian. PAST MEDICAL HISTORY: Significant for degenerative joint disease, bipolar disorder, dementia, psychosis. PAST SURGICAL HISTORY: No recent surgery. ALLERGIES: None. MEDICATIONS: Follow admission reconciliation. SOCIAL HISTORY: No smoking, no alcohol, no drug. FAMILY HISTORY: Noncontributory. REVIEW OF SYSTEMS: RENAL SYSTEM: No history of chronic renal disorder. CARDIOVASCULAR SYSTEM: No coronary artery disease. ENDOCRINE SYSTEM: No diabetes or thyroid problem. GASTROINTESTINAL SYSTEM: No upper or lower gastrointestinal bleed. NEUROLOGICAL SYSTEM: History of dementia, psychosis, bipolar disorder. MUSCULOSKELETAL SYSTEM: He has degenerative joint disease. RESPIRATORY SYSTEM: No asthma. GENITOURINARY SYSTEM: No dysuria or hematuria. PHYSICAL EXAMINATION: GENERAL: He is awake, not coherent. VITAL SIGNS: Temperature 97.9, heart rate 69, blood pressure 90/54. HEENT: Normocephalic. Pupils reactive to light and accommodation. Sclerae clear. NECK: Supple. Negative for lymphadenopathy, JVD or bruit. CHEST: Entry of air bilaterally normal, rhonchi or wheezing. HEART: S1, S2 normal, no gallop rhythm. ABDOMEN: Soft, bowel sounds positive. EXTREMITIES: No edema. NEUROLOGIC: Awake, not coherent. His gait unstable. LABORATORY DATA: White blood cell 4.2, hemoglobin 15, hematocrit 46.1, and platelet is 252. Sodium 135, potassium 3.1, BUN 15, creatinine 0.9. ASSESSMENT: 1. Degenerative joint disease. 2. Bipolar disorder. 3. Psychosis. 4. Dementia. PLAN: Admit patient to the hospital under Dr. Flores's service. MEDICAL PROBLEMS ADDRESSED DURING HOSPITALIZATION: Psychosis, dementia. MEDICAL PROBLEMS ADDRESSED AT DISCHARGE: Degenerative joint disease, bipolar disorder. The patient is medically stable for activity. Thank you Dr. Flores for asking me to see your patient. JOB# [id number]
[2017-12-06] MEDS: OLANZapine 5 mg Oral Disintegrating Tab PO SCH (21:58)
--- NOTE | 2017-12-07 01:48 | Psychosocial Evaluation ---
DATE OF SERVICE: 12/06/2017 CHIEF COMPLAINT: Psychotic illness. HISTORY OF PRESENT ILLNESS: The patient is a 57-year-old male who was transferred from his facility residing, usually at independent living in [place] who apparently become more agitated, confused, irritable. The patient has multiple medical problems. The patient was evaluated in the ER and now admitted for increased anger outburst. PAST PSYCHIATRIC HISTORY: Psychosis and possible bipolar disorder. MEDICATION LIST: From his senior care reviewed. PAST MEDICAL HISTORY: Medically cleared in the outpatient with multiple medical issues. He has unspecified lack of coordination, difficulty walking, dysphagia of oropharyngeal phase, hemiplegia, hemiparesis following cerebral infarction affecting right dominant side, convulsions, and hyperlipidemia. SUBSTANCE ABUSE HISTORY Significant for history of some stimulant abuse. MENTAL STATUS EXAMINATION: The patient is oriented to person, disheveled, unkempt, delayed response, oriented to person, did not know where he was, not oriented to time, and not oriented to place. The patient is paranoid, internally preoccupied. The patient has poor insight to his problems. PATIENT'S STRENGTH: The patient is passively accepting treatment. PATIENT'S WEAKNESS: Lack of insight. ASSESSMENT: Psychosis, not otherwise specified, rule out bipolar disorder with psychosis, rule out dementia secondary to underlying CVA. Medical, as per medical history. We will admit the patient for hospitalization. We will start medication management. We will assess psychopharmacological intervention. CRITERIA FOR DISCHARGE: Improved condition. No agitation, safe disposition, and outpatient treatment plan. [facility]# [id number]
[2017-12-07] MEDS: Multivitamin Tab PO SCH (09:40)
--- NOTE | 2017-12-07 15:11 | Internal Medicine Prog Note ---
Internal Medicine Subjective - Subjective Service Date: 12/07/17 Patient seen and examined:: with staff Patient is:: awake, in bed, confused Per staff patient has:: no adverse event Internal Medicine Objective - Results Result Diagrams: 12/05/17 14:00 12/05/17 14:00 Recent Labs: Laboratory Last Values WBC 4.2 Th/cmm (4.8-10.8) L 12/05/17 14:00 RBC 5.12 Mil/cmm (4.30-5.70) 12/05/17 14:00 Hgb 15.0 gm/dL (12-16) 12/05/17 14:00 Hct 46.1 % (41.0-60) 12/05/17 14:00 MCV 89.9 fl (80-99) 12/05/17 14:00 MCH 29.4 pg (26.0-30.0) 12/05/17 14:00 MCHC Differential 32.7 pg (28.0-36.0) 12/05/17 14:00 RDW 13.6 % (11.5-20.0) 12/05/17 14:00 Plt Count 252 Th/cmm (150-400) 12/05/17 14:00 MPV 8.2 fl 12/05/17 14:00 Neutrophils % 33.8 % (40.0-80.0) L 12/05/17 14:00 Lymphocytes % 48.3 % (20.0-50.0) 12/05/17 14:00 Monocytes % 11.0 % (2.0-10.0) H 12/05/17 14:00 Eosinophils % 6.0 % (0.0-5.0) H 12/05/17 14:00 Basophils % 0.9 % (0.0-2.0) 12/05/17 14:00 Sodium 135 mEq/L (136-145) L 12/05/17 14:00 Potassium 3.1 mEq/L (3.5-5.1) L 12/05/17 14:00 Chloride 103 mEq/L (98-107) 12/05/17 14:00 Carbon Dioxide 18.8 mEq/L (21.0-31.0) L 12/05/17 14:00 Anion Gap 16.3 (7.0-16.0) H 12/05/17 14:00 BUN 15 mg/dL (7-25) 12/05/17 14:00 Creatinine 0.9 mg/dL (0.7-1.3) 12/05/17 14:00 Est GFR ( Amer) > 60.0 ml/min (>90) 12/05/17 14:00 Est GFR (Non-Af Amer) > 60.0 ml/min 12/05/17 14:00 BUN/Creatinine Ratio 16.7 12/05/17 14:00 Glucose 74 mg/dL (70-105) 12/05/17 14:00 Hemoglobin A1c % 5.0 % (4.0-6.0) 12/05/17 14:00 Calcium 9.6 mg/dL (8.6-10.3) 12/05/17 14:00 Total Bilirubin 0.5 mg/dL (0.3-1.0) 12/05/17 14:00 AST 16 U/L (13-39) 12/05/17 14:00 ALT 8 U/L (7-52) 12/05/17 14:00 Alkaline Phosphatase 73 U/L (34-104) 12/05/17 14:00 Total Protein 7.2 gm/dL (6.0-8.3) 12/05/17 14:00 Albumin 4.2 gm/dL (4.2-5.5) 12/05/17 14:00 Globulin 3.0 gm/dL 12/05/17 14:00 Albumin/Globulin Ratio 1.4 (1.0-1.8) 12/05/17 14:00 Triglycerides 49 mg/dL (<150) 12/05/17 14:00 Cholesterol 111 mg/dL (<200) 12/05/17 14:00 LDL Cholesterol Direct 44 mg/dL (75-193) L 12/05/17 14:00 HDL Cholesterol 51 mg/dL (23-92) 12/05/17 14:00 TSH 0.58 uIU/ml (0.34-5.60) 12/05/17 14:00 Salicylates < 25.0 mg/L (30.0-100.0) L 12/05/17 14:00 Acetaminophen < 10.0 ug/mL (10.0-30.0) L 12/05/17 14:00 Ethyl Alcohol < 10 mg/dL (0-10) 12/05/17 14:00 - Physical Exam Vitals and I&O: Vital Signs Temp 97.1 F 12/07/17 06:51 Pulse 70 12/07/17 06:51 Resp 18 12/07/17 06:51 BP 119/75 12/07/17 06:51 Pulse Ox 97 12/07/17 06:51 Intake & Output 12/06/17 12/07/17 12/07/17 18:59 06:59 18:59 Intake Total 1200 120 Balance 1200 120 Intake: Oral 1200 120 Other: # Voids 3 3 # Bowel Movements 1 Stool Characteristics Formed Active Medications: Current Medications Acetaminophen (Tylenol) 650 mg PO Q4HR PRN PRN Reason: Mild Pain / Temp above 100 Stop: 02/03/18 16:35 Al Hydrox/Mg Hydrox/Simethicone (Maalox) 30 ml PO Q4HR PRN PRN Reason: GI DISTRESS Stop: 02/03/18 16:35 Lorazepam (Ativan) 0.5 mg PO Q4HR PRN; Protocol PRN Reason: Agitation Stop: 01/04/18 16:35 Magnesium Hydroxide (Milk Of Magnesia) 30 ml PO HS PRN PRN Reason: Constipation Multivitamins/Vitamin C (Theragran) 1 tab PO DAILY [facility] Stop: 02/04/18 08:59 Last Admin: 12/07/17 09:40 Dose: 1 tab Olanzapine (Zyprexa Zydis) 5 mg PO HS [facility] PRN Reason: Protocol Stop: 02/04/18 20:59 Last Admin: 12/06/17 21:58 Dose: 5 mg Topiramate (Topamax) 75 mg PO BID [facility] Stop: 02/05/18 08:59 Last Admin: 12/07/17 09:40 Dose: 75 mg Zolpidem Tartrate (Ambien) 5 mg PO HS PRN PRN Reason: Insomnia Stop: 02/03/18 16:35 General: demented HEENT: NC/AT, PERRLA, EOMI, anicteric sclerae, throat clear Neck: Supple, No JVD, No thyromegaly, No LAD Lungs: CTAB Cardiovascular: RRR, Normal S1, Normal S2, without murmur Abdomen: non-tender, non-distended Extremities: clear Neurological: no change - Procedures Procedures: Procedures Procedure Code Date GROUP PSYCHOTHERAPY 43473 08/19/15 GROUP PSYCHOTHERAPY GZHZZZZ 08/19/15 Internal Medicine Assmt/Plan - Assessment Assessment: 1.DJD. 2.CONSTIPATION. 3.DEMENTIA. 4.PSYCHOSIS. - Plan Plan: CONTINUE ON CURRENT MEDICATION AND DIET.
--- NOTE | 2017-12-07 17:47 | Progress Notes ---
DATE: 12/07/2017 CHIEF COMPLAINT: Psychotic illness. SUBJECTIVE: The patient was seen, chart reviewed, discussed with staff. Still some anger outburst, still withdrawn. His responses are somewhat delayed at times. The patient is still confused and forgetful. Insight is poor. Judgment impaired. ASSESSMENT: The patient in psychotic phase. PLAN: Continue stabilization. Continue medication management. The patient was started on Zyprexa and so far has no side effects. Monitor closely. JOB# [id number]
[2017-12-07] MEDS: OLANZapine 5 mg Oral Disintegrating Tab PO SCH (20:09)
[2017-12-08] MEDS: Multivitamin Tab PO SCH (09:41)
[2017-12-08] MEDS: OLANZapine 5 mg Oral Disintegrating Tab PO SCH (20:29)
--- NOTE | 2017-12-08 23:18 | Internal Medicine Prog Note ---
Internal Medicine Subjective - Subjective Service Date: 12/08/17 Patient seen and examined:: with staff Patient is:: awake, in bed, confused Per staff patient has:: no adverse event Internal Medicine Objective - Results Result Diagrams: 12/05/17 14:00 12/05/17 14:00 Recent Labs: Laboratory Last Values WBC 4.2 Th/cmm (4.8-10.8) L 12/05/17 14:00 RBC 5.12 Mil/cmm (4.30-5.70) 12/05/17 14:00 Hgb 15.0 gm/dL (12-16) 12/05/17 14:00 Hct 46.1 % (41.0-60) 12/05/17 14:00 MCV 89.9 fl (80-99) 12/05/17 14:00 MCH 29.4 pg (26.0-30.0) 12/05/17 14:00 MCHC Differential 32.7 pg (28.0-36.0) 12/05/17 14:00 RDW 13.6 % (11.5-20.0) 12/05/17 14:00 Plt Count 252 Th/cmm (150-400) 12/05/17 14:00 MPV 8.2 fl 12/05/17 14:00 Neutrophils % 33.8 % (40.0-80.0) L 12/05/17 14:00 Lymphocytes % 48.3 % (20.0-50.0) 12/05/17 14:00 Monocytes % 11.0 % (2.0-10.0) H 12/05/17 14:00 Eosinophils % 6.0 % (0.0-5.0) H 12/05/17 14:00 Basophils % 0.9 % (0.0-2.0) 12/05/17 14:00 Sodium 135 mEq/L (136-145) L 12/05/17 14:00 Potassium 3.1 mEq/L (3.5-5.1) L 12/05/17 14:00 Chloride 103 mEq/L (98-107) 12/05/17 14:00 Carbon Dioxide 18.8 mEq/L (21.0-31.0) L 12/05/17 14:00 Anion Gap 16.3 (7.0-16.0) H 12/05/17 14:00 BUN 15 mg/dL (7-25) 12/05/17 14:00 Creatinine 0.9 mg/dL (0.7-1.3) 12/05/17 14:00 Est GFR ( Amer) > 60.0 ml/min (>90) 12/05/17 14:00 Est GFR (Non-Af Amer) > 60.0 ml/min 12/05/17 14:00 BUN/Creatinine Ratio 16.7 12/05/17 14:00 Glucose 74 mg/dL (70-105) 12/05/17 14:00 Hemoglobin A1c % 5.0 % (4.0-6.0) 12/05/17 14:00 Calcium 9.6 mg/dL (8.6-10.3) 12/05/17 14:00 Total Bilirubin 0.5 mg/dL (0.3-1.0) 12/05/17 14:00 AST 16 U/L (13-39) 12/05/17 14:00 ALT 8 U/L (7-52) 12/05/17 14:00 Alkaline Phosphatase 73 U/L (34-104) 12/05/17 14:00 Total Protein 7.2 gm/dL (6.0-8.3) 12/05/17 14:00 Albumin 4.2 gm/dL (4.2-5.5) 12/05/17 14:00 Globulin 3.0 gm/dL 12/05/17 14:00 Albumin/Globulin Ratio 1.4 (1.0-1.8) 12/05/17 14:00 Triglycerides 49 mg/dL (<150) 12/05/17 14:00 Cholesterol 111 mg/dL (<200) 12/05/17 14:00 LDL Cholesterol Direct 44 mg/dL (75-193) L 12/05/17 14:00 HDL Cholesterol 51 mg/dL (23-92) 12/05/17 14:00 TSH 0.58 uIU/ml (0.34-5.60) 12/05/17 14:00 Salicylates < 25.0 mg/L (30.0-100.0) L 12/05/17 14:00 Acetaminophen < 10.0 ug/mL (10.0-30.0) L 12/05/17 14:00 Ethyl Alcohol < 10 mg/dL (0-10) 12/05/17 14:00 RPR NONREACTIVE (NONREACTIVE) 12/05/17 14:00 - Physical Exam Vitals and I&O: Vital Signs Temp 98.8 F 12/08/17 15:27 Pulse 99 12/08/17 15:27 Resp 20 12/08/17 15:27 BP 151/90 12/08/17 15:27 Pulse Ox 97 12/08/17 15:27 Intake & Output 12/08/17 12/08/17 12/09/17 06:59 18:59 06:59 Intake Total 360 1200 Balance 360 1200 Intake: Oral 360 1200 Other: # Voids 2 3 # Bowel Movements 2 Stool Characteristics Formed Formed Active Medications: Current Medications Acetaminophen (Tylenol) 650 mg PO Q4HR PRN PRN Reason: Mild Pain / Temp above 100 Stop: 02/03/18 16:35 Al Hydrox/Mg Hydrox/Simethicone (Maalox) 30 ml PO Q4HR PRN PRN Reason: GI DISTRESS Stop: 02/03/18 16:35 Lorazepam (Ativan) 0.5 mg PO Q4HR PRN; Protocol PRN Reason: Agitation Stop: 01/04/18 16:35 Magnesium Hydroxide (Milk Of Magnesia) 30 ml PO HS PRN PRN Reason: Constipation Multivitamins/Vitamin C (Theragran) 1 tab PO DAILY [facility] Stop: 02/04/18 08:59 Last Admin: 12/08/17 09:41 Dose: Not Given Olanzapine (Zyprexa Zydis) 5 mg PO HS [facility] PRN Reason: Protocol Stop: 02/04/18 20:59 Last Admin: 12/08/17 20:29 Dose: 5 mg Topiramate (Topamax) 75 mg PO BID [facility] Stop: 02/05/18 08:59 Last Admin: 12/08/17 16:26 Dose: Not Given Zolpidem Tartrate (Ambien) 5 mg PO HS PRN PRN Reason: Insomnia Stop: 02/03/18 16:35 Last Admin: 12/08/17 20:30 Dose: 5 mg General: demented HEENT: NC/AT, PERRLA, EOMI, anicteric sclerae, throat clear Neck: Supple, No JVD, No thyromegaly, No LAD Lungs: CTAB Cardiovascular: RRR, Normal S1, Normal S2, without murmur Abdomen: non-tender, non-distended Extremities: clear Neurological: no change - Procedures Procedures: Procedures Procedure Code Date GROUP PSYCHOTHERAPY 18072 08/19/15 GROUP PSYCHOTHERAPY GZHZZZZ 08/19/15 Internal Medicine Assmt/Plan - Assessment Assessment: 1.DJD. 2.CONSTIPATION. 3.DEMENTIA. 4.PSYCHOSIS. - Plan Plan: CONTINUE ON CURRENT MEDICATION AND DIET.
--- NOTE | 2017-12-09 03:05 | Progress Notes ---
DATE: 12/08/2017 PSYCHIATRIC PROGRESS NOTE SUBJECTIVE: Staff was spoken to. The patient is interviewed. Mood is noted to be irritable. Affect is constricted. Insight and judgment to be still impaired. Impulse control seems to be poor. Coping skills are also noted to be poor. The patient has a tendency to be angry and upset and needs to be redirected. Continues to be very paranoid. No side effects to the medications are noted at this time. ASSESSMENT: The patient is still psychotic. PLAN: To continue the patient with the supportive therapy, encouraged the patient to verbalize the concerns rather than to act out. The patient is going to be closely monitored. Once stabilized, the patient is going to be discharged to the facility for further followup. JOB# [id number]
[2017-12-09] MEDS: Multivitamin Tab PO SCH (08:36)
--- NOTE | 2017-12-09 15:01 | Consultation ---
DATE OF CONSULTATION: 12/08/2017 TYPE OF CONSULTATION: Psychology. REQUESTING PHYSICIAN: Yolie Flores M.D. HISTORY OF PRESENT ILLNESS: The following is by review of the medical record as well as by the patient's self report. According to record review, the patient is a 57-year-old male who is being transferred due to increased anger outbursts at his facility. The patient was becoming agitated and confused. The patient has been in independent living in [place] and according to the staff there, the patient had been verbalizing paranoid ideation. 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 Upon interview, the patient is guarded, but did state that he is not experiencing any suicidal ideation, plan, or intention. The patient presents as easily angered and irritable. PAST MEDICAL HISTORY: Please see history and physical. PAST PSYCHIATRIC HISTORY: The patient has a long history of mental illness with multiple previous hospitalizations. MEDICATIONS: Please see admission reconciliation. ALLERGIES: No known drug allergies. SUBSTANCE ABUSE HISTORY: The patient has a history of amphetamine abuse. PSYCHOSOCIAL HISTORY: The patient is living in an independent living facility. The patient did not answer questions about occupational history or educational history or catholic affiliation. The patient states he desires to return to his independent living. MENTAL STATUS EXAMINATION: The patient appears to be his stated age. The patient's attitude is guarded and superficially cooperative. Eye contact is fair. Mood is irritable. Affect is constricted. Thought process shows to be internally preoccupied. The patient denied auditory or visual hallucinations; however, the patient is verbalizing suspiciousness. There may be some paranoid ideation. The patient's behavior is easily agitated. Impulse control is poor. Concentration is fair to poor. The patient was able to answer clinical questions relevantly. The patient did not participate in the memory evaluation. Immediate memory appears to be intact. Short term memory and long-term memory need further evaluation. Sensorium is alert and oriented to person, place, but not date or time and the patient did not participate in the interpretation of proverbs. Insight is poor. Judgment is compromised. DIAGNOSTIC IMPRESSION: AXIS I: 1. Psychosis, not otherwise specified. 2. 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 AXIS II: Deferred. AXIS III: Please see history and physical. TREATMENT PLAN: The patient has been seen by Dr. Flores for psychiatric evaluation and for the management of the patient's psychotropic medications. We will provide anger management as well as de-escalation to reduce the patient's agitation. We will provide motivational enhancement for the patient to become compliant and stay compliant with all aspects of his care and treatment during his hospital stay. We will provide coping strategies for chronic mental illness as well as to increase the patient's capacity to interact appropriately with staff at his facility and be able to verbalize his concerns versus overreacting and acting out. Thank you, Dr. Flores for this consult and the opportunity to participate with you in this patient's care. JOB# [id number] CAM
[2017-12-09 15:06] LABS: HEMATOCRIT 43.7 % (41.0-60); HEMOGLOBIN 14.7 gm/dL (12-16); MEAN CELL VOLUME 89.3 fl (80-99); MEAN CORPUSCULAR HGB CONC 33.7 pg (28.0-36.0); RED BLOOD COUNT 4.89 Mil/cmm (4.30-5.70); RED CELL DISTRIBUTION WIDTH 13.6 % (11.5-20.0)
[2017-12-09 15:11] LABS: URINE MICROSCOPIC INDICATED? YES; URINE SOURCE CLEAN C
--- NOTE | 2017-12-09 15:11 | General Progress Note ---
Subjective - Review of Systems Service Date: 12/09/17 Subjective: awake and alert staff report fever today Objective - Results Result Diagrams: 12/05/17 14:00 12/05/17 14:00 Recent Labs: Laboratory Last Values WBC 4.2 Th/cmm (4.8-10.8) L 12/05/17 14:00 RBC 5.12 Mil/cmm (4.30-5.70) 12/05/17 14:00 Hgb 15.0 gm/dL (12-16) 12/05/17 14:00 Hct 46.1 % (41.0-60) 12/05/17 14:00 MCV 89.9 fl (80-99) 12/05/17 14:00 MCH 29.4 pg (26.0-30.0) 12/05/17 14:00 MCHC Differential 32.7 pg (28.0-36.0) 12/05/17 14:00 RDW 13.6 % (11.5-20.0) 12/05/17 14:00 Plt Count 252 Th/cmm (150-400) 12/05/17 14:00 MPV 8.2 fl 12/05/17 14:00 Neutrophils % 33.8 % (40.0-80.0) L 12/05/17 14:00 Lymphocytes % 48.3 % (20.0-50.0) 12/05/17 14:00 Monocytes % 11.0 % (2.0-10.0) H 12/05/17 14:00 Eosinophils % 6.0 % (0.0-5.0) H 12/05/17 14:00 Basophils % 0.9 % (0.0-2.0) 12/05/17 14:00 Sodium 135 mEq/L (136-145) L 12/05/17 14:00 Potassium 3.1 mEq/L (3.5-5.1) L 12/05/17 14:00 Chloride 103 mEq/L (98-107) 12/05/17 14:00 Carbon Dioxide 18.8 mEq/L (21.0-31.0) L 12/05/17 14:00 Anion Gap 16.3 (7.0-16.0) H 12/05/17 14:00 BUN 15 mg/dL (7-25) 12/05/17 14:00 Creatinine 0.9 mg/dL (0.7-1.3) 12/05/17 14:00 Est GFR ( Amer) > 60.0 ml/min (>90) 12/05/17 14:00 Est GFR (Non-Af Amer) > 60.0 ml/min 12/05/17 14:00 BUN/Creatinine Ratio 16.7 12/05/17 14:00 Glucose 74 mg/dL (70-105) 12/05/17 14:00 Hemoglobin A1c % 5.0 % (4.0-6.0) 12/05/17 14:00 Calcium 9.6 mg/dL (8.6-10.3) 12/05/17 14:00 Total Bilirubin 0.5 mg/dL (0.3-1.0) 12/05/17 14:00 AST 16 U/L (13-39) 12/05/17 14:00 ALT 8 U/L (7-52) 12/05/17 14:00 Alkaline Phosphatase 73 U/L (34-104) 12/05/17 14:00 Total Protein 7.2 gm/dL (6.0-8.3) 12/05/17 14:00 Albumin 4.2 gm/dL (4.2-5.5) 12/05/17 14:00 Globulin 3.0 gm/dL 12/05/17 14:00 Albumin/Globulin Ratio 1.4 (1.0-1.8) 12/05/17 14:00 Triglycerides 49 mg/dL (<150) 12/05/17 14:00 Cholesterol 111 mg/dL (<200) 12/05/17 14:00 LDL Cholesterol Direct 44 mg/dL (75-193) L 12/05/17 14:00 HDL Cholesterol 51 mg/dL (23-92) 12/05/17 14:00 TSH 0.58 uIU/ml (0.34-5.60) 12/05/17 14:00 Salicylates < 25.0 mg/L (30.0-100.0) L 12/05/17 14:00 Acetaminophen < 10.0 ug/mL (10.0-30.0) L 12/05/17 14:00 Ethyl Alcohol < 10 mg/dL (0-10) 12/05/17 14:00 RPR NONREACTIVE (NONREACTIVE) 12/05/17 14:00 - Physical Exam Vitals and I&O: Vital Signs Temp 98.0 F 12/09/17 07:12 Pulse 86 12/09/17 07:12 Resp 20 12/09/17 07:12 BP 151/90 12/08/17 15:27 Pulse Ox 96 12/09/17 07:12 Intake & Output 12/08/17 12/09/17 12/09/17 18:59 06:59 18:59 Intake Total 1200 240 Balance 1200 240 Intake: Oral 1200 240 Other: # Voids 3 2 # Bowel Movements 2 Stool Characteristics Formed Active Medications: Current Medications Acetaminophen (Tylenol) 650 mg PO Q4HR PRN PRN Reason: Mild Pain / Temp above 100 Stop: 02/03/18 16:35 Al Hydrox/Mg Hydrox/Simethicone (Maalox) 30 ml PO Q4HR PRN PRN Reason: GI DISTRESS Stop: 02/03/18 16:35 Levofloxacin (Levaquin) 500 mg PO DAILY [facility] Stop: 02/07/18 15:14 Lorazepam (Ativan) 0.5 mg PO Q4HR PRN; Protocol PRN Reason: Agitation Stop: 01/04/18 16:35 Magnesium Hydroxide (Milk Of Magnesia) 30 ml PO HS PRN PRN Reason: Constipation Multivitamins/Vitamin C (Theragran) 1 tab PO DAILY [facility] Stop: 02/04/18 08:59 Last Admin: 12/09/17 08:36 Dose: 1 tab Topiramate (Topamax) 75 mg PO BID [facility] Stop: 02/05/18 08:59 Last Admin: 12/09/17 08:36 Dose: 75 mg Zolpidem Tartrate (Ambien) 5 mg PO HS PRN PRN Reason: Insomnia Stop: 02/03/18 16:35 Last Admin: 12/08/17 20:30 Dose: 5 mg General: Alert, No acute distress HEENT: Atraumatic, PERRLA, EOMI Neck: Supple, JVD, Thyromegaly Cardiovascular: Regular rate, Normal S1, Normal S2 Lungs: Clear to auscultation Abdomen: Bowel sounds, Soft - Procedures Procedures: Procedures Procedure Code Date GROUP PSYCHOTHERAPY 87223 08/19/15 GROUP PSYCHOTHERAPY GZHZZZZ 08/19/15 Assessment/Plan - Problem List Patient Problems: All Active Problems AGGRESSIVE BEHAVIOR WITH AGITATION (Acute) - Assessment Assessment: 1.DJD. 2.CONSTIPATION. 3.DEMENTIA. 4.PSYCHOSIS. 5.FEVER - Plan Plan: cont current treatment fever w/u pending empirical Levaquin
[2017-12-09 15:13] LABS: URINE BILIRUBIN NEGATIVE (NEGATIVE); URINE BLOOD MODERATE (NEGATIVE); URINE GLUCOSE (UA) NEGATIVE (NEGATIVE); URINE KETONE NEGATIVE (NEGATIVE); URINE LEUKOCYTE ESTERASE SMALL (NEGATIVE); URINE NITRATE POSITIVE (NEGATIVE); URINE PH 6.5 (4.6 - 8.0); URINE PROTEIN 30 mg/dL (NEGATIVE)
[2017-12-09 15:23] LABS: URINE CLARITY SLIGHTLY HAZY (CLEAR); URINE COLOR YELLOW
[2017-12-09 15:23] LABS: PLATELET COUNT 190 Th/cmm (150-400)
[2017-12-09 15:24] LABS: URINE BACTERIA MODERATE /hpf (NONE SEEN); URINE EPITHELIAL CELLS OCCASIONAL /lpf (FEW)
[2017-12-09 15:25] LABS: ALB/GLOB RATIO 1.3 (1.0-1.8); ALBUMIN 3.9 gm/dL (4.2-5.5); ALKALINE PHOSPHATASE 71 U/L (34-104); ANION GAP 8.4 (7.0-16.0); BILIRUBIN,TOTAL 0.8 mg/dL (0.3-1.0); BUN - UREA NITROGEN 21 mg/dL (7-25); CARBON DIOXIDE 26.3 mEq/L (21.0-31.0); CHLORIDE 104 mEq/L (98-107); CREATININE - SERUM 0.8 mg/dL (0.7-1.3); GFR AFRICAN-AMERICAN > 60.0 ml/min (>90); GFR NON AFRICAN-AMERICAN > 60.0 ml/min; GLUCOSE 101 mg/dL (70-105); MANUAL DIFF REQUIRED? YES; POTASSIUM SERUM 3.7 mEq/L (3.5-5.1); SGOT 19 U/L (13-39); SGPT/ALT 9 U/L (7-52); SODIUM SERUM 135 mEq/L (136-145); TOTAL PROTEIN,SERUM 6.9 gm/dL (6.0-8.3); WHITE BLOOD COUNT 14.1 Th/cmm (4.8-10.8)
[2017-12-09 15:26] LABS: AMPHETAMINE URINE NEGATIVE (NEGATIVE); BARBITURATES URINE NEGATIVE (NEGATIVE); BENZODIAZEPINES QUAL URINE NEGATIVE (NEGATIVE); CANNABINOID THC NEGATIVE (NEGATIVE); COCAINE METABOLITE QUAL URINE NEGATIVE (NEGATIVE); METHADONE URINE NEGATIVE (NEGATIVE); METHAMPHETAMINES QUAL URINE NEGATIVE (NEGATIVE); OPIATES (MORPHINE) QUAL. URINE NEGATIVE (NEGATIVE); PHENCYCLIDINE (PCP) URINE NEGATIVE (NEGATIVE); TRICYCLICS (TCA) QUAL. URINE NEGATIVE (NEGATIVE)
[2017-12-09 15:30] LABS: BAND NEUTROPHILE 5 % (0-10); LYMPHOCYTE 6 % (20-50); MONOCYTE 3 % (2-10); NEUTROPHILS 86 % (40-80)
[2017-12-09] MEDS: Maalox 30 mL Cup PO PRN (21:10)
--- NOTE | 2017-12-10 02:59 | Progress Notes ---
DATE: 12/09/2017 PSYCHIATRIC PROGRESS NOTE SUBJECTIVE: Staff was spoken to. The Patient is interviewed. Mood is noted to be depressed. Affect is constricted. The patient is isolative and withdrawn. The patient has been having difficult time to cope with the stress. The patient is paranoid, but at the same time the patient is reported to have been running high temperatures and the patient looks dehydrated and hence it is decided to hold the psychotropic medication and then request Dr. Simon to evaluate the patient, if needed the patient is going to be transferred to the medical unit for further care. I am discontinuing the Zyprexa on this patient. JOB# [id number]
[2017-12-10] MEDS: Multivitamin Tab PO SCH (09:03)
--- NOTE | 2017-12-10 11:20 | General Progress Note ---
Subjective - Review of Systems Service Date: 12/10/17 Subjective: awake and alert no distress Objective - Results Result Diagrams: 12/09/17 14:55 12/09/17 14:55 Recent Labs: Laboratory Last Values WBC 14.1 Th/cmm (4.8-10.8) H 12/09/17 14:55 RBC 4.89 Mil/cmm (4.30-5.70) 12/09/17 14:55 Hgb 14.7 gm/dL (12-16) 12/09/17 14:55 Hct 43.7 % (41.0-60) 12/09/17 14:55 MCV 89.3 fl (80-99) 12/09/17 14:55 MCH 30.0 pg (26.0-30.0) 12/09/17 14:55 MCHC Differential 33.7 pg (28.0-36.0) 12/09/17 14:55 RDW 13.6 % (11.5-20.0) 12/09/17 14:55 Plt Count 190 Th/cmm (150-400) 12/09/17 14:55 MPV 9.0 fl 12/09/17 14:55 Neutrophils % 33.8 % (40.0-80.0) L 12/05/17 14:00 Band Neutrophils % 5 % (0-10) 12/09/17 14:55 Lymphocytes % 48.3 % (20.0-50.0) 12/05/17 14:00 Monocytes % 11.0 % (2.0-10.0) H 12/05/17 14:00 Eosinophils % 6.0 % (0.0-5.0) H 12/05/17 14:00 Basophils % 0.9 % (0.0-2.0) 12/05/17 14:00 Neutrophils (Manual) 86 % (40-80) H 12/09/17 14:55 Lymphocytes 6 % (20-50) L 12/09/17 14:55 Monocytes 3 % (2-10) 12/09/17 14:55 Sodium 135 mEq/L (136-145) L 12/09/17 14:55 Potassium 3.7 mEq/L (3.5-5.1) 12/09/17 14:55 Chloride 104 mEq/L (98-107) 12/09/17 14:55 Carbon Dioxide 26.3 mEq/L (21.0-31.0) 12/09/17 14:55 Anion Gap 8.4 (7.0-16.0) 12/09/17 14:55 BUN 21 mg/dL (7-25) 12/09/17 14:55 Creatinine 0.8 mg/dL (0.7-1.3) 12/09/17 14:55 Est GFR ( Amer) > 60.0 ml/min (>90) 12/09/17 14:55 Est GFR (Non-Af Amer) > 60.0 ml/min 12/09/17 14:55 BUN/Creatinine Ratio 26.3 12/09/17 14:55 Glucose 101 mg/dL (70-105) 12/09/17 14:55 Hemoglobin A1c % 5.0 % (4.0-6.0) 12/05/17 14:00 Calcium 10.0 mg/dL (8.6-10.3) 12/09/17 14:55 Total Bilirubin 0.8 mg/dL (0.3-1.0) 12/09/17 14:55 AST 19 U/L (13-39) 12/09/17 14:55 ALT 9 U/L (7-52) 12/09/17 14:55 Alkaline Phosphatase 71 U/L (34-104) 12/09/17 14:55 Total Protein 6.9 gm/dL (6.0-8.3) 12/09/17 14:55 Albumin 3.9 gm/dL (4.2-5.5) L 12/09/17 14:55 Globulin 3.0 gm/dL 12/09/17 14:55 Albumin/Globulin Ratio 1.3 (1.0-1.8) 12/09/17 14:55 Triglycerides 49 mg/dL (<150) 12/05/17 14:00 Cholesterol 111 mg/dL (<200) 12/05/17 14:00 LDL Cholesterol Direct 44 mg/dL (75-193) L 12/05/17 14:00 HDL Cholesterol 51 mg/dL (23-92) 12/05/17 14:00 TSH 0.58 uIU/ml (0.34-5.60) 12/05/17 14:00 Urine Source CLEAN C 12/09/17 15:05 Urine Color YELLOW 12/09/17 15:05 Urine Clarity SLIGHTLY HAZY (CLEAR) 12/09/17 15:05 Urine pH 6.5 (4.6 - 8.0) 12/09/17 15:05 Ur Specific [place] 1.015 (1.005-1.030) 12/09/17 15:05 Urine Protein 30 mg/dL (NEGATIVE) H 12/09/17 15:05 Urine Glucose (UA) NEGATIVE mg/dL (NEGATIVE) 12/09/17 15:05 Urine Ketones NEGATIVE mg/dL (NEGATIVE) 12/09/17 15:05 Urine Blood MODERATE (NEGATIVE) H 12/09/17 15:05 Urine Nitrate POSITIVE (NEGATIVE) H 12/09/17 15:05 Urine Bilirubin NEGATIVE (NEGATIVE) 12/09/17 15:05 Urine Urobilinogen 1.0 E.U./dL (0.2 - 1.0) 12/09/17 15:05 Ur Leukocyte Esterase SMALL (NEGATIVE) H 12/09/17 15:05 Urine RBC 2-5 /hpf (0-5) H 12/09/17 15:05 Urine WBC 10-25 /hpf (0-5) H 12/09/17 15:05 Ur Epithelial Cells OCCASIONAL /lpf (FEW) 12/09/17 15:05 Urine Bacteria MODERATE /hpf (NONE SEEN) H 12/09/17 15:05 Salicylates < 25.0 mg/L (30.0-100.0) L 12/05/17 14:00 Urine Opiates Screen NEGATIVE (NEGATIVE) 12/09/17 15:05 Urine Methadone Screen NEGATIVE (NEGATIVE) 12/09/17 15:05 Acetaminophen < 10.0 ug/mL (10.0-30.0) L 12/05/17 14:00 Ur Barbiturates Screen NEGATIVE (NEGATIVE) 12/09/17 15:05 Ur Tricyclics Screen NEGATIVE (NEGATIVE) 12/09/17 15:05 Ur Phencyclidine Scrn NEGATIVE (NEGATIVE) 12/09/17 15:05 Amphetamines Screen NEGATIVE (NEGATIVE) 12/09/17 15:05 U Methamphetamines Scrn NEGATIVE (NEGATIVE) 12/09/17 15:05 U Benzodiazepines Scrn NEGATIVE (NEGATIVE) 12/09/17 15:05 U Cocaine Metab Screen NEGATIVE (NEGATIVE) 12/09/17 15:05 U Cannabinoids Screen NEGATIVE (NEGATIVE) 12/09/17 15:05 Ethyl Alcohol < 10 mg/dL (0-10) 12/05/17 14:00 RPR NONREACTIVE (NONREACTIVE) 12/05/17 14:00 - Physical Exam Vitals and I&O: Vital Signs Temp 102.3 F 12/09/17 15:32 Pulse 97 12/09/17 15:32 Resp 20 12/09/17 15:32 BP 136/63 12/09/17 15:32 Pulse Ox 97 12/09/17 15:32 Intake & Output 12/09/17 12/10/17 12/10/17 18:59 06:59 18:59 Intake Total 1440 Balance 1440 Intake: Oral 1440 Other: # Voids 3 # Bowel Movements 1 Active Medications: Current Medications Acetaminophen (Tylenol) 650 mg PO Q4HR PRN PRN Reason: Mild Pain / Temp above 100 Stop: 02/03/18 16:35 Last Admin: 12/09/17 15:20 Dose: 650 mg Al Hydrox/Mg Hydrox/Simethicone (Maalox) 30 ml PO Q4HR PRN PRN Reason: GI DISTRESS Stop: 02/03/18 16:35 Last Admin: 12/09/17 21:10 Dose: 30 ml Levofloxacin (Levaquin) 500 mg PO DAILY [facility] Stop: 02/07/18 15:59 Last Admin: 12/10/17 09:03 Dose: 500 mg Lorazepam (Ativan) 0.5 mg PO Q4HR PRN; Protocol PRN Reason: Agitation Stop: 01/04/18 16:35 Magnesium Hydroxide (Milk Of Magnesia) 30 ml PO HS PRN PRN Reason: Constipation Multivitamins/Vitamin C (Theragran) 1 tab PO DAILY [facility] Stop: 02/04/18 08:59 Last Admin: 12/10/17 09:03 Dose: 1 tab Topiramate (Topamax) 75 mg PO BID [facility] Stop: 02/05/18 08:59 Last Admin: 12/10/17 09:03 Dose: 75 mg Zolpidem Tartrate (Ambien) 5 mg PO HS PRN PRN Reason: Insomnia Stop: 02/03/18 16:35 Last Admin: 12/09/17 21:10 Dose: 5 mg General: Alert, No acute distress HEENT: Atraumatic, PERRLA, EOMI Neck: Supple, JVD, Thyromegaly Cardiovascular: Regular rate, Normal S1, Normal S2 Lungs: Clear to auscultation Abdomen: Bowel sounds, Soft - Procedures Procedures: Procedures Procedure Code Date GROUP PSYCHOTHERAPY 28241 08/19/15 GROUP PSYCHOTHERAPY GZHZZZZ 08/19/15 Assessment/Plan - Problem List Patient Problems: All Active Problems AGGRESSIVE BEHAVIOR WITH AGITATION (Acute) - Assessment Assessment: 1.DJD. 2.CONSTIPATION. 3.DEMENTIA. 4.PSYCHOSIS. 5.UTI - Plan Plan: cont current treatment UC pending
[2017-12-11] MEDS: Maalox 30 mL Cup PO PRN (02:18)
--- NOTE | 2017-12-11 03:04 | Progress Notes ---
DATE: 12/10/2017 SUBJECTIVE: Staff was spoken to. Patient is interviewed. Mood is noted to be irritable. Affect is constricted. Insight and judgment at this time are noted to be impaired. Impulse control is noted to be fair. The patient had been spiking temperature yesterday and hence the antipsychotic medication has been kept on hold. The patient is still isolative and withdrawn. No side effects to the medications are noted. The patient has been started on antibiotic, Levaquin, and the patient has been able to tolerate the medication today. ASSESSMENT: The patient is still depressed and psychotic. PLAN: To continue the patient with the supportive therapy. Once the patient is stabilized, he is going to be restarted on the psychotropic medications. JOB# [id number]
[2017-12-11 06:42] LABS: % BASOPHILS 0.2 % (0.0-2.0); % EOSINOPHILS 2.4 % (0.0-5.0); % LYMPHOCYTES 18.3 % (20.0-50.0); % MONOCYTES 10.2 % (2.0-10.0); % NEUTROPHILS 68.9 % (40.0-80.0); EOSINOPHILE ABSOLUTE 0.2 Th/cmm (0.1-0.4); HEMATOCRIT 43.4 % (41.0-60); HEMOGLOBIN 14.3 gm/dL (12-16); LYMPHOCYTE ABSOLUTE 1.2 Th/cmm (1.5-3.0); MEAN CELL VOLUME 89.4 fl (80-99); MEAN CORPUSCULAR HEMOGLOBIN 29.4 pg (26.0-30.0); MEAN CORPUSCULAR HGB CONC 32.9 pg (28.0-36.0); MEAN PLATELET VOLUME 8.6 fl; MONOCYTE ABSOLUTE 0.6 Th/cmm (0.3-1.0); NEUTROPHILE ABSOLUTE 4.3 Th/cmm (1.8-8.0); PLATELET COUNT 202 Th/cmm (150-400); RED BLOOD COUNT 4.85 Mil/cmm (4.30-5.70); RED CELL DISTRIBUTION WIDTH 13.6 % (11.5-20.0); WHITE BLOOD COUNT 6.3 Th/cmm (4.8-10.8)
[2017-12-11 07:09] LABS: ANION GAP 7.9 (7.0-16.0); BUN - UREA NITROGEN 16 mg/dL (7-25); CALCIUM SERUM 9.9 mg/dL (8.6-10.3); CARBON DIOXIDE 27.6 mEq/L (21.0-31.0); CHLORIDE 104 mEq/L (98-107); CREATININE - SERUM 0.7 mg/dL (0.7-1.3); GFR AFRICAN-AMERICAN > 60.0 ml/min (>90); GFR NON AFRICAN-AMERICAN > 60.0 ml/min; GLUCOSE 96 mg/dL (70-105); POTASSIUM SERUM 3.5 mEq/L (3.5-5.1); SODIUM SERUM 136 mEq/L (136-145)
[2017-12-11] MEDS: Multivitamin Tab PO SCH (09:46)
[2017-12-11] MEDS ORDERED: Probiotic Screen MC PRN (10:30)
--- NOTE | 2017-12-11 21:48 | Internal Medicine Prog Note ---
Internal Medicine Subjective - Subjective Service Date: 12/11/17 Patient seen and examined:: with staff Patient is:: awake, in bed, confused Per staff patient has:: no adverse event Internal Medicine Objective - Results Result Diagrams: 12/11/17 06:30 12/11/17 06:30 Recent Labs: Laboratory Last Values WBC 6.3 Th/cmm (4.8-10.8) 12/11/17 06:30 RBC 4.85 Mil/cmm (4.30-5.70) 12/11/17 06:30 Hgb 14.3 gm/dL (12-16) 12/11/17 06:30 Hct 43.4 % (41.0-60) 12/11/17 06:30 MCV 89.4 fl (80-99) 12/11/17 06:30 MCH 29.4 pg (26.0-30.0) 12/11/17 06:30 MCHC Differential 32.9 pg (28.0-36.0) 12/11/17 06:30 RDW 13.6 % (11.5-20.0) 12/11/17 06:30 Plt Count 202 Th/cmm (150-400) 12/11/17 06:30 MPV 8.6 fl 12/11/17 06:30 Neutrophils % 68.9 % (40.0-80.0) 12/11/17 06:30 Band Neutrophils % 5 % (0-10) 12/09/17 14:55 Lymphocytes % 18.3 % (20.0-50.0) L 12/11/17 06:30 Monocytes % 10.2 % (2.0-10.0) H 12/11/17 06:30 Eosinophils % 2.4 % (0.0-5.0) 12/11/17 06:30 Basophils % 0.2 % (0.0-2.0) 12/11/17 06:30 Neutrophils (Manual) 86 % (40-80) H 12/09/17 14:55 Lymphocytes 6 % (20-50) L 12/09/17 14:55 Monocytes 3 % (2-10) 12/09/17 14:55 Sodium 136 mEq/L (136-145) 12/11/17 06:30 Potassium 3.5 mEq/L (3.5-5.1) 12/11/17 06:30 Chloride 104 mEq/L (98-107) 12/11/17 06:30 Carbon Dioxide 27.6 mEq/L (21.0-31.0) 12/11/17 06:30 Anion Gap 7.9 (7.0-16.0) 12/11/17 06:30 BUN 16 mg/dL (7-25) 12/11/17 06:30 Creatinine 0.7 mg/dL (0.7-1.3) 12/11/17 06:30 Est GFR ( Amer) > 60.0 ml/min (>90) 12/11/17 06:30 Est GFR (Non-Af Amer) > 60.0 ml/min 12/11/17 06:30 BUN/Creatinine Ratio 22.9 12/11/17 06:30 Glucose 96 mg/dL (70-105) 12/11/17 06:30 Hemoglobin A1c % 5.0 % (4.0-6.0) 12/05/17 14:00 Calcium 9.9 mg/dL (8.6-10.3) 12/11/17 06:30 Total Bilirubin 0.8 mg/dL (0.3-1.0) 12/09/17 14:55 AST 19 U/L (13-39) 12/09/17 14:55 ALT 9 U/L (7-52) 12/09/17 14:55 Alkaline Phosphatase 71 U/L (34-104) 12/09/17 14:55 Total Protein 6.9 gm/dL (6.0-8.3) 12/09/17 14:55 Albumin 3.9 gm/dL (4.2-5.5) L 12/09/17 14:55 Globulin 3.0 gm/dL 12/09/17 14:55 Albumin/Globulin Ratio 1.3 (1.0-1.8) 12/09/17 14:55 Triglycerides 49 mg/dL (<150) 12/05/17 14:00 Cholesterol 111 mg/dL (<200) 12/05/17 14:00 LDL Cholesterol Direct 44 mg/dL (75-193) L 12/05/17 14:00 HDL Cholesterol 51 mg/dL (23-92) 12/05/17 14:00 TSH 0.58 uIU/ml (0.34-5.60) 12/05/17 14:00 Urine Source CLEAN C 12/09/17 15:05 Urine Color YELLOW 12/09/17 15:05 Urine Clarity SLIGHTLY HAZY (CLEAR) 12/09/17 15:05 Urine pH 6.5 (4.6 - 8.0) 12/09/17 15:05 Ur Specific [place] 1.015 (1.005-1.030) 12/09/17 15:05 Urine Protein 30 mg/dL (NEGATIVE) H 12/09/17 15:05 Urine Glucose (UA) NEGATIVE mg/dL (NEGATIVE) 12/09/17 15:05 Urine Ketones NEGATIVE mg/dL (NEGATIVE) 12/09/17 15:05 Urine Blood MODERATE (NEGATIVE) H 12/09/17 15:05 Urine Nitrate POSITIVE (NEGATIVE) H 12/09/17 15:05 Urine Bilirubin NEGATIVE (NEGATIVE) 12/09/17 15:05 Urine Urobilinogen 1.0 E.U./dL (0.2 - 1.0) 12/09/17 15:05 Ur Leukocyte Esterase SMALL (NEGATIVE) H 12/09/17 15:05 Urine RBC 2-5 /hpf (0-5) H 12/09/17 15:05 Urine WBC 10-25 /hpf (0-5) H 12/09/17 15:05 Ur Epithelial Cells OCCASIONAL /lpf (FEW) 12/09/17 15:05 Urine Bacteria MODERATE /hpf (NONE SEEN) H 12/09/17 15:05 Salicylates < 25.0 mg/L (30.0-100.0) L 12/05/17 14:00 Urine Opiates Screen NEGATIVE (NEGATIVE) 12/09/17 15:05 Urine Methadone Screen NEGATIVE (NEGATIVE) 12/09/17 15:05 Acetaminophen < 10.0 ug/mL (10.0-30.0) L 12/05/17 14:00 Ur Barbiturates Screen NEGATIVE (NEGATIVE) 12/09/17 15:05 Ur Tricyclics Screen NEGATIVE (NEGATIVE) 12/09/17 15:05 Ur Phencyclidine Scrn NEGATIVE (NEGATIVE) 12/09/17 15:05 Amphetamines Screen NEGATIVE (NEGATIVE) 12/09/17 15:05 U Methamphetamines Scrn NEGATIVE (NEGATIVE) 12/09/17 15:05 U Benzodiazepines Scrn NEGATIVE (NEGATIVE) 12/09/17 15:05 U Cocaine Metab Screen NEGATIVE (NEGATIVE) 12/09/17 15:05 U Cannabinoids Screen NEGATIVE (NEGATIVE) 12/09/17 15:05 Ethyl Alcohol < 10 mg/dL (0-10) 12/05/17 14:00 RPR NONREACTIVE (NONREACTIVE) 12/05/17 14:00 - Physical Exam Vitals and I&O: Vital Signs Temp 98 F 12/11/17 20:33 Pulse 86 12/11/17 20:33 Resp 19 12/11/17 20:33 BP 140/66 12/11/17 20:33 Pulse Ox 98 12/11/17 20:33 Intake & Output 12/11/17 12/11/17 12/12/17 06:59 18:59 06:59 Intake Total 1130 1400 240 Balance 1130 1400 240 Weight (lbs) 56.699 kg Intake: Oral 1130 1400 240 Other: # Voids 1 4 3 # Bowel Movements 2 2 0 Active Medications: Current Medications Acetaminophen (Tylenol) 650 mg PO Q4HR PRN PRN Reason: Mild Pain / Temp above 100 Stop: 02/03/18 16:35 Last Admin: 12/11/17 02:18 Dose: 650 mg Al Hydrox/Mg Hydrox/Simethicone (Maalox) 30 ml PO Q4HR PRN PRN Reason: GI DISTRESS Stop: 02/03/18 16:35 Last Admin: 12/11/17 02:18 Dose: 30 ml Lactobacillus Rhamnosus (Culturelle 15b) 1 each PO DAILY [facility] Stop: 02/10/18 08:59 Levofloxacin (Levaquin) 500 mg PO DAILY [facility] Stop: 02/07/18 15:59 Last Admin: 12/11/17 09:47 Dose: 500 mg Lorazepam (Ativan) 0.5 mg PO Q4HR PRN; Protocol PRN Reason: Agitation Stop: 01/04/18 16:35 Magnesium Hydroxide (Milk Of Magnesia) 30 ml PO HS PRN PRN Reason: Constipation Miscellaneous (Probiotic Screen) 1 ea [facility] PRN PRN PRN Reason: PROTOCOL Stop: 02/09/18 10:29 Multivitamins/Vitamin C (Theragran) 1 tab PO DAILY [facility] Stop: 02/04/18 08:59 Last Admin: 12/11/17 09:46 Dose: 1 tab Olanzapine (Zyprexa) 2.5 mg PO HS [facility] PRN Reason: Protocol Stop: 02/09/18 20:59 Topiramate (Topamax) 75 mg PO BID [facility] Stop: 02/05/18 08:59 Last Admin: 12/11/17 16:45 Dose: 75 mg Zolpidem Tartrate (Ambien) 5 mg PO HS PRN PRN Reason: Insomnia Stop: 02/03/18 16:35 Last Admin: 12/10/17 21:34 Dose: 5 mg General: demented HEENT: NC/AT, PERRLA, EOMI, anicteric sclerae, throat clear Neck: Supple, No JVD, No thyromegaly, No LAD Lungs: CTAB Cardiovascular: RRR, Normal S1, Normal S2, without murmur Abdomen: non-tender, non-distended Extremities: clear Neurological: no change - Procedures Procedures: Procedures Procedure Code Date GROUP PSYCHOTHERAPY 22263 08/19/15 GROUP PSYCHOTHERAPY GZHZZZZ 08/19/15 Internal Medicine Assmt/Plan - Assessment Assessment: 1.DJD. 2.CONSTIPATION. 3.DEMENTIA. 4.PSYCHOSIS. - Plan Plan: CONTINUE ON CURRENT MEDICATION AND DIET. Nutritional Asmnt/Malnutr-PDOC - Dietary Evaluation Malnutrition Findings (Please click <Entered> for more info): Nutritional Asmnt/Malnutrition Start: 12/11/17 16: 02 Text: Status: Complete Freq: Document 12/11/17 16:02 SAYRAG (Rec: 12/11/17 16:06 [email or web address] [id number]) Nutritional Asmnt/Malnutrition Patient General Information Nutritional Screening Moderate Risk Diagnosis psychosis Pertinent Medical Hx/Surgical Hx DJD, bipolar, dementia, spcyhosis Subjective Information per EMR, PO intake 100% of each meal. Per nurse note, pt was oriented to self only. Current Diet Order/ Nutrition Support pureed Pertinent Medications culturelle, levaquin, theragran Pertinent Labs 12/11 nutrition labs WNL Nutritional Hx/Data Height 1.73 m Height (Calculated Centimeters) 172.7 Current Weight (lbs) 56.699 kg Weight (Calculated Kilograms) 56.7 Weight (Calculated Grams) 42624.0 % Usual Body Weight 154 Body Mass Index (BMI) 19.0 Weight Status Approriate GI Symptoms GI Symptoms None Last BM 12/11 x 2 Difficult in: None Skin Integrity/Comment: intact Current %PO Good (75-100%) Estimated Nutritional Goals BEE in Kcals: Using Current wt Calories/Kcals/Kg 27-32 Kcals Calculated 3464-5759 Protein: Using Current wt Protein g/k-1.2 Protein Calculated 57-68 Fluid: ml 1539-1824ml (1ml/kcal) Nutritional Problem No current Nutrition Prob Problem N/A Intervention/Recommendation Comments 1. Continue with current diet as ordered. 2. Monitor PO intake, wt, labs and skin integrity 3. F/U as low risk in 7 days, 12/18 Expected Outcomes/Goals Expected Outcomes/Goals 1. PO intake to meet at least 75% of nutritional needs. 2. Wt stability, skin to remain intact, labs WNL.
--- NOTE | 2017-12-12 01:20 | Progress Notes ---
DATE: 12/11/2017 SUBJECTIVE: Staff was spoken to. The patient is interviewed. Mood is noted to be irritable. Affect is constricted. The patient's coping skills noted to be still poor. The patient has been having difficult time to cope with the stress. No side effects to the medications are noted. The patient has been isolative and withdrawn. The patient is very irritable and paranoid. Delusions are noted today and hence it is decided to start the patient on Zyprexa, which is going to be given at 2.5 mg at bedtime and the patient is going to be closely monitored for any side effects. ASSESSMENT: The patient is presenting with psychosis today. PLAN: The patient has been treated for urinary tract infection and the patient is going to be placed on Zyprexa and followed up with the supportive therapy. JOB# [id number]
[2017-12-12] MEDS: Multivitamin Tab PO SCH (09:49)
[2017-12-12] MEDS: Lactobacillus Rhamnosus GG 15 Billion CFU CAP.SPRINK PO SCH (09:49)
--- NOTE | 2017-12-12 21:53 | Internal Medicine Prog Note ---
Internal Medicine Subjective - Subjective Service Date: 12/12/17 Patient seen and examined:: with staff Patient is:: awake, in bed, confused Per staff patient has:: no adverse event Internal Medicine Objective - Results Result Diagrams: 12/11/17 06:30 12/11/17 06:30 Recent Labs: Laboratory Last Values WBC 6.3 Th/cmm (4.8-10.8) 12/11/17 06:30 RBC 4.85 Mil/cmm (4.30-5.70) 12/11/17 06:30 Hgb 14.3 gm/dL (12-16) 12/11/17 06:30 Hct 43.4 % (41.0-60) 12/11/17 06:30 MCV 89.4 fl (80-99) 12/11/17 06:30 MCH 29.4 pg (26.0-30.0) 12/11/17 06:30 MCHC Differential 32.9 pg (28.0-36.0) 12/11/17 06:30 RDW 13.6 % (11.5-20.0) 12/11/17 06:30 Plt Count 202 Th/cmm (150-400) 12/11/17 06:30 MPV 8.6 fl 12/11/17 06:30 Neutrophils % 68.9 % (40.0-80.0) 12/11/17 06:30 Band Neutrophils % 5 % (0-10) 12/09/17 14:55 Lymphocytes % 18.3 % (20.0-50.0) L 12/11/17 06:30 Monocytes % 10.2 % (2.0-10.0) H 12/11/17 06:30 Eosinophils % 2.4 % (0.0-5.0) 12/11/17 06:30 Basophils % 0.2 % (0.0-2.0) 12/11/17 06:30 Neutrophils (Manual) 86 % (40-80) H 12/09/17 14:55 Lymphocytes 6 % (20-50) L 12/09/17 14:55 Monocytes 3 % (2-10) 12/09/17 14:55 Sodium 136 mEq/L (136-145) 12/11/17 06:30 Potassium 3.5 mEq/L (3.5-5.1) 12/11/17 06:30 Chloride 104 mEq/L (98-107) 12/11/17 06:30 Carbon Dioxide 27.6 mEq/L (21.0-31.0) 12/11/17 06:30 Anion Gap 7.9 (7.0-16.0) 12/11/17 06:30 BUN 16 mg/dL (7-25) 12/11/17 06:30 Creatinine 0.7 mg/dL (0.7-1.3) 12/11/17 06:30 Est GFR ( Amer) > 60.0 ml/min (>90) 12/11/17 06:30 Est GFR (Non-Af Amer) > 60.0 ml/min 12/11/17 06:30 BUN/Creatinine Ratio 22.9 12/11/17 06:30 Glucose 96 mg/dL (70-105) 12/11/17 06:30 Hemoglobin A1c % 5.0 % (4.0-6.0) 12/05/17 14:00 Calcium 9.9 mg/dL (8.6-10.3) 12/11/17 06:30 Total Bilirubin 0.8 mg/dL (0.3-1.0) 12/09/17 14:55 AST 19 U/L (13-39) 12/09/17 14:55 ALT 9 U/L (7-52) 12/09/17 14:55 Alkaline Phosphatase 71 U/L (34-104) 12/09/17 14:55 Total Protein 6.9 gm/dL (6.0-8.3) 12/09/17 14:55 Albumin 3.9 gm/dL (4.2-5.5) L 12/09/17 14:55 Globulin 3.0 gm/dL 12/09/17 14:55 Albumin/Globulin Ratio 1.3 (1.0-1.8) 12/09/17 14:55 Triglycerides 49 mg/dL (<150) 12/05/17 14:00 Cholesterol 111 mg/dL (<200) 12/05/17 14:00 LDL Cholesterol Direct 44 mg/dL (75-193) L 12/05/17 14:00 HDL Cholesterol 51 mg/dL (23-92) 12/05/17 14:00 TSH 0.58 uIU/ml (0.34-5.60) 12/05/17 14:00 Urine Source CLEAN C 12/09/17 15:05 Urine Color YELLOW 12/09/17 15:05 Urine Clarity SLIGHTLY HAZY (CLEAR) 12/09/17 15:05 Urine pH 6.5 (4.6 - 8.0) 12/09/17 15:05 Ur Specific [place] 1.015 (1.005-1.030) 12/09/17 15:05 Urine Protein 30 mg/dL (NEGATIVE) H 12/09/17 15:05 Urine Glucose (UA) NEGATIVE mg/dL (NEGATIVE) 12/09/17 15:05 Urine Ketones NEGATIVE mg/dL (NEGATIVE) 12/09/17 15:05 Urine Blood MODERATE (NEGATIVE) H 12/09/17 15:05 Urine Nitrate POSITIVE (NEGATIVE) H 12/09/17 15:05 Urine Bilirubin NEGATIVE (NEGATIVE) 12/09/17 15:05 Urine Urobilinogen 1.0 E.U./dL (0.2 - 1.0) 12/09/17 15:05 Ur Leukocyte Esterase SMALL (NEGATIVE) H 12/09/17 15:05 Urine RBC 2-5 /hpf (0-5) H 12/09/17 15:05 Urine WBC 10-25 /hpf (0-5) H 12/09/17 15:05 Ur Epithelial Cells OCCASIONAL /lpf (FEW) 12/09/17 15:05 Urine Bacteria MODERATE /hpf (NONE SEEN) H 12/09/17 15:05 Salicylates < 25.0 mg/L (30.0-100.0) L 12/05/17 14:00 Urine Opiates Screen NEGATIVE (NEGATIVE) 12/09/17 15:05 Urine Methadone Screen NEGATIVE (NEGATIVE) 12/09/17 15:05 Acetaminophen < 10.0 ug/mL (10.0-30.0) L 12/05/17 14:00 Ur Barbiturates Screen NEGATIVE (NEGATIVE) 12/09/17 15:05 Ur Tricyclics Screen NEGATIVE (NEGATIVE) 12/09/17 15:05 Ur Phencyclidine Scrn NEGATIVE (NEGATIVE) 12/09/17 15:05 Amphetamines Screen NEGATIVE (NEGATIVE) 12/09/17 15:05 U Methamphetamines Scrn NEGATIVE (NEGATIVE) 12/09/17 15:05 U Benzodiazepines Scrn NEGATIVE (NEGATIVE) 12/09/17 15:05 U Cocaine Metab Screen NEGATIVE (NEGATIVE) 12/09/17 15:05 U Cannabinoids Screen NEGATIVE (NEGATIVE) 12/09/17 15:05 Ethyl Alcohol < 10 mg/dL (0-10) 12/05/17 14:00 RPR NONREACTIVE (NONREACTIVE) 12/05/17 14:00 - Physical Exam Vitals and I&O: Vital Signs Temp 97 F 12/12/17 20:00 Pulse 83 12/12/17 20:00 Resp 19 12/12/17 20:00 BP 109/67 12/12/17 20:00 Pulse Ox 95 12/12/17 20:00 Intake & Output 12/12/17 12/12/17 12/13/17 06:59 18:59 06:59 Intake Total 240 1200 Balance 240 1200 Weight (lbs) 56.699 kg Intake: Oral 240 1200 Other: # Voids 3 3 # Bowel Movements 1 1 Active Medications: Current Medications Acetaminophen (Tylenol) 650 mg PO Q4HR PRN PRN Reason: Mild Pain / Temp above 100 Stop: 02/03/18 16:35 Last Admin: 12/11/17 02:18 Dose: 650 mg Al Hydrox/Mg Hydrox/Simethicone (Maalox) 30 ml PO Q4HR PRN PRN Reason: GI DISTRESS Stop: 02/03/18 16:35 Last Admin: 12/11/17 02:18 Dose: 30 ml Lactobacillus Rhamnosus (Culturelle 15b) 1 each PO DAILY [facility] Stop: 02/10/18 08:59 Last Admin: 12/12/17 09:49 Dose: 1 each Levofloxacin (Levaquin) 500 mg PO DAILY [facility] Stop: 02/07/18 15:59 Last Admin: 12/12/17 09:49 Dose: 500 mg Lorazepam (Ativan) 0.5 mg PO Q4HR PRN; Protocol PRN Reason: Agitation Stop: 01/04/18 16:35 Magnesium Hydroxide (Milk Of Magnesia) 30 ml PO HS PRN PRN Reason: Constipation Miscellaneous (Probiotic Screen) 1 ea MC PRN PRN PRN Reason: PROTOCOL Stop: 02/09/18 10:29 Multivitamins/Vitamin C (Theragran) 1 tab PO DAILY JORGITO Stop: 02/04/18 08:59 Last Admin: 12/12/17 09:49 Dose: 1 tab Olanzapine (Zyprexa) 2.5 mg PO HS JORGITO PRN Reason: Protocol Stop: 02/09/18 20:59 Last Admin: 12/12/17 20:43 Dose: Not Given Topiramate (Topamax) 50 mg PO BID JORGITO Stop: 02/10/18 19:00 Zolpidem Tartrate (Ambien) 5 mg PO HS PRN PRN Reason: Insomnia Stop: 02/03/18 16:35 Last Admin: 12/10/17 21:34 Dose: 5 mg General: demented HEENT: NC/AT, PERRLA, EOMI, anicteric sclerae, throat clear Neck: Supple, No JVD, No thyromegaly, No LAD Lungs: CTAB Cardiovascular: RRR, Normal S1, Normal S2, without murmur Abdomen: non-tender, non-distended Extremities: clear Neurological: no change - Procedures Procedures: Procedures Procedure Code Date GROUP PSYCHOTHERAPY 69983 08/19/15 GROUP PSYCHOTHERAPY [id number] 08/19/15 Internal Medicine Assmt/Plan - Assessment Assessment: 1.DJD. 2.CONSTIPATION. 3.DEMENTIA. 4.PSYCHOSIS. - Plan Plan: CONTINUE ON CURRENT MEDICATION AND DIET. Nutritional Asmnt/Malnutr-PDOC - Dietary Evaluation Malnutrition Findings (Please click <Entered> for more info): Nutritional Asmnt/Malnutrition Start: 12/11/17 16: 02 Text: Status: Complete Freq: Document 12/11/17 16:02 [email or web address] (Rec: 12/11/17 16:06 [email or web address] [id number]) Nutritional Asmnt/Malnutrition Patient General Information Nutritional Screening Moderate Risk Diagnosis psychosis Pertinent Medical Hx/Surgical Hx DJD, bipolar, dementia, spcyhosis Subjective Information per EMR, PO intake 100% of each meal. Per nurse note, pt was oriented to self only. Current Diet Order/ Nutrition Support pureed Pertinent Medications culturelle, levaquin, theragran Pertinent Labs 12/11 nutrition labs WNL Nutritional Hx/Data Height 1.73 m Height (Calculated Centimeters) 172.7 Current Weight (lbs) 56.699 kg Weight (Calculated Kilograms) 56.7 Weight (Calculated Grams) 97839.0 % Usual Body Weight 154 Body Mass Index (BMI) 19.0 Weight Status Approriate GI Symptoms GI Symptoms None Last BM 12/11 x 2 Difficult in: None Skin Integrity/Comment: intact Current %PO Good (75-100%) Estimated Nutritional Goals BEE in Kcals: Using Current wt Calories/Kcals/Kg 27-32 Kcals Calculated 4453-6457 Protein: Using Current wt Protein g/k-1.2 Protein Calculated 57-68 Fluid: ml 1539-1824ml (1ml/kcal) Nutritional Problem No current Nutrition Prob Problem N/A Intervention/Recommendation Comments 1. Continue with current diet as ordered. 2. Monitor PO intake, wt, labs and skin integrity 3. F/U as low risk in 7 days, 12/18 Expected Outcomes/Goals Expected Outcomes/Goals 1. PO intake to meet at least 75% of nutritional needs. 2. Wt stability, skin to remain intact, labs WNL.
--- NOTE | 2017-12-13 02:07 | Progress Notes ---
DATE: 12/12/2017 SUBJECTIVE: Staff was spoken to. The patient is interviewed. Mood is noted to be dysphoric. Coping skills are noted to be poor. The patient is isolative and withdrawn. The patient has pain, having difficult time to cope with stress. Patient's appetite is noted to be poor. The patient is also having difficult time to cope with the stress. No side effects to the medications are noted. Continues to be paranoid at this time. The patient's personal hygiene seems to be very poor. The patient at this time is on 75 mg of the Topamax twice a day, which is going to be decreased to 50 mg twice a day and he appears to have ____ appetite and patient is noted to be closely monitored. Once stabilized, the patient is going to be closely monitored and discharge to the family for followup on outpatient basis. JOB# [id number]
[2017-12-13] MEDS: Multivitamin Tab PO SCH (08:40)
[2017-12-13] MEDS: Lactobacillus Rhamnosus GG 15 Billion CFU CAP.SPRINK PO SCH (08:40)
--- NOTE | 2017-12-13 22:49 | Internal Medicine Prog Note ---
Internal Medicine Subjective - Subjective Service Date: 12/13/17 Patient seen and examined:: without staff Patient is:: awake, in bed, confused Per staff patient has:: no adverse event Internal Medicine Objective - Results Result Diagrams: 12/11/17 06:30 12/11/17 06:30 Recent Labs: Laboratory Last Values WBC 6.3 Th/cmm (4.8-10.8) 12/11/17 06:30 RBC 4.85 Mil/cmm (4.30-5.70) 12/11/17 06:30 Hgb 14.3 gm/dL (12-16) 12/11/17 06:30 Hct 43.4 % (41.0-60) 12/11/17 06:30 MCV 89.4 fl (80-99) 12/11/17 06:30 MCH 29.4 pg (26.0-30.0) 12/11/17 06:30 MCHC Differential 32.9 pg (28.0-36.0) 12/11/17 06:30 RDW 13.6 % (11.5-20.0) 12/11/17 06:30 Plt Count 202 Th/cmm (150-400) 12/11/17 06:30 MPV 8.6 fl 12/11/17 06:30 Neutrophils % 68.9 % (40.0-80.0) 12/11/17 06:30 Band Neutrophils % 5 % (0-10) 12/09/17 14:55 Lymphocytes % 18.3 % (20.0-50.0) L 12/11/17 06:30 Monocytes % 10.2 % (2.0-10.0) H 12/11/17 06:30 Eosinophils % 2.4 % (0.0-5.0) 12/11/17 06:30 Basophils % 0.2 % (0.0-2.0) 12/11/17 06:30 Neutrophils (Manual) 86 % (40-80) H 12/09/17 14:55 Lymphocytes 6 % (20-50) L 12/09/17 14:55 Monocytes 3 % (2-10) 12/09/17 14:55 Sodium 136 mEq/L (136-145) 12/11/17 06:30 Potassium 3.5 mEq/L (3.5-5.1) 12/11/17 06:30 Chloride 104 mEq/L (98-107) 12/11/17 06:30 Carbon Dioxide 27.6 mEq/L (21.0-31.0) 12/11/17 06:30 Anion Gap 7.9 (7.0-16.0) 12/11/17 06:30 BUN 16 mg/dL (7-25) 12/11/17 06:30 Creatinine 0.7 mg/dL (0.7-1.3) 12/11/17 06:30 Est GFR ( Amer) > 60.0 ml/min (>90) 12/11/17 06:30 Est GFR (Non-Af Amer) > 60.0 ml/min 12/11/17 06:30 BUN/Creatinine Ratio 22.9 12/11/17 06:30 Glucose 96 mg/dL (70-105) 12/11/17 06:30 Hemoglobin A1c % 5.0 % (4.0-6.0) 12/05/17 14:00 Calcium 9.9 mg/dL (8.6-10.3) 12/11/17 06:30 Total Bilirubin 0.8 mg/dL (0.3-1.0) 12/09/17 14:55 AST 19 U/L (13-39) 12/09/17 14:55 ALT 9 U/L (7-52) 12/09/17 14:55 Alkaline Phosphatase 71 U/L (34-104) 12/09/17 14:55 Total Protein 6.9 gm/dL (6.0-8.3) 12/09/17 14:55 Albumin 3.9 gm/dL (4.2-5.5) L 12/09/17 14:55 Globulin 3.0 gm/dL 12/09/17 14:55 Albumin/Globulin Ratio 1.3 (1.0-1.8) 12/09/17 14:55 Triglycerides 49 mg/dL (<150) 12/05/17 14:00 Cholesterol 111 mg/dL (<200) 12/05/17 14:00 LDL Cholesterol Direct 44 mg/dL (75-193) L 12/05/17 14:00 HDL Cholesterol 51 mg/dL (23-92) 12/05/17 14:00 TSH 0.58 uIU/ml (0.34-5.60) 12/05/17 14:00 Urine Source CLEAN C 12/09/17 15:05 Urine Color YELLOW 12/09/17 15:05 Urine Clarity SLIGHTLY HAZY (CLEAR) 12/09/17 15:05 Urine pH 6.5 (4.6 - 8.0) 12/09/17 15:05 Ur Specific [place] 1.015 (1.005-1.030) 12/09/17 15:05 Urine Protein 30 mg/dL (NEGATIVE) H 12/09/17 15:05 Urine Glucose (UA) NEGATIVE mg/dL (NEGATIVE) 12/09/17 15:05 Urine Ketones NEGATIVE mg/dL (NEGATIVE) 12/09/17 15:05 Urine Blood MODERATE (NEGATIVE) H 12/09/17 15:05 Urine Nitrate POSITIVE (NEGATIVE) H 12/09/17 15:05 Urine Bilirubin NEGATIVE (NEGATIVE) 12/09/17 15:05 Urine Urobilinogen 1.0 E.U./dL (0.2 - 1.0) 12/09/17 15:05 Ur Leukocyte Esterase SMALL (NEGATIVE) H 12/09/17 15:05 Urine RBC 2-5 /hpf (0-5) H 12/09/17 15:05 Urine WBC 10-25 /hpf (0-5) H 12/09/17 15:05 Ur Epithelial Cells OCCASIONAL /lpf (FEW) 12/09/17 15:05 Urine Bacteria MODERATE /hpf (NONE SEEN) H 12/09/17 15:05 Salicylates < 25.0 mg/L (30.0-100.0) L 12/05/17 14:00 Urine Opiates Screen NEGATIVE (NEGATIVE) 12/09/17 15:05 Urine Methadone Screen NEGATIVE (NEGATIVE) 12/09/17 15:05 Acetaminophen < 10.0 ug/mL (10.0-30.0) L 12/05/17 14:00 Ur Barbiturates Screen NEGATIVE (NEGATIVE) 12/09/17 15:05 Ur Tricyclics Screen NEGATIVE (NEGATIVE) 12/09/17 15:05 Ur Phencyclidine Scrn NEGATIVE (NEGATIVE) 12/09/17 15:05 Amphetamines Screen NEGATIVE (NEGATIVE) 12/09/17 15:05 U Methamphetamines Scrn NEGATIVE (NEGATIVE) 12/09/17 15:05 U Benzodiazepines Scrn NEGATIVE (NEGATIVE) 12/09/17 15:05 U Cocaine Metab Screen NEGATIVE (NEGATIVE) 12/09/17 15:05 U Cannabinoids Screen NEGATIVE (NEGATIVE) 12/09/17 15:05 Ethyl Alcohol < 10 mg/dL (0-10) 12/05/17 14:00 RPR NONREACTIVE (NONREACTIVE) 12/05/17 14:00 - Physical Exam Vitals and I&O: Vital Signs Temp 97.1 F 12/13/17 20:00 Pulse 92 12/13/17 20:00 Resp 18 12/13/17 20:00 BP 113/73 12/13/17 20:00 Pulse Ox 96 12/13/17 20:00 Intake & Output 12/13/17 12/13/17 12/14/17 06:59 18:59 06:59 Intake Total 120 1200 Balance 120 1200 Intake: Oral 120 1200 Other: # Voids 3 3 # Bowel Movements 1 Active Medications: Current Medications Acetaminophen (Tylenol) 650 mg PO Q4HR PRN PRN Reason: Mild Pain / Temp above 100 Stop: 02/03/18 16:35 Last Admin: 12/11/17 02:18 Dose: 650 mg Al Hydrox/Mg Hydrox/Simethicone (Maalox) 30 ml PO Q4HR PRN PRN Reason: GI DISTRESS Stop: 02/03/18 16:35 Last Admin: 12/11/17 02:18 Dose: 30 ml Lactobacillus Rhamnosus (Culturelle 15b) 1 each PO DAILY [facility] Stop: 02/10/18 08:59 Last Admin: 12/13/17 08:40 Dose: 1 each Levofloxacin (Levaquin) 500 mg PO DAILY [facility] Stop: 02/07/18 15:59 Last Admin: 12/13/17 08:40 Dose: 500 mg Magnesium Hydroxide (Milk Of Magnesia) 30 ml PO HS PRN PRN Reason: Constipation Miscellaneous (Probiotic Screen) 1 ea MC PRN PRN PRN Reason: PROTOCOL Stop: 02/09/18 10:29 Multivitamins/Vitamin C (Theragran) 1 tab PO DAILY [facility] Stop: 02/04/18 08:59 Last Admin: 12/13/17 08:40 Dose: 1 tab Olanzapine (Zyprexa) 2.5 mg PO HS [facility] PRN Reason: Protocol Stop: 02/09/18 20:59 Last Admin: 12/13/17 21:55 Dose: Not Given General: demented HEENT: NC/AT, PERRLA, EOMI, anicteric sclerae, throat clear Neck: Supple, No JVD, No thyromegaly, No LAD Lungs: CTAB Cardiovascular: RRR, Normal S1, Normal S2, without murmur Abdomen: non-tender, non-distended Extremities: clear Neurological: no change - Procedures Procedures: Procedures Procedure Code Date GROUP PSYCHOTHERAPY 33141 08/19/15 GROUP PSYCHOTHERAPY GZHZZZZ 08/19/15 Internal Medicine Assmt/Plan - Assessment Assessment: 1.DJD. 2.CONSTIPATION. 3.DEMENTIA. 4.PSYCHOSIS. - Plan Plan: CONTINUE ON CURRENT MEDICATION AND DIET. Nutritional Asmnt/Malnutr-PDOC - Dietary Evaluation Malnutrition Findings (Please click <Entered> for more info): Nutritional Asmnt/Malnutrition Start: 12/11/17 16: 02 Text: Status: Complete Freq: Document 12/11/17 16:02 TENA (Rec: 12/11/17 16:06 TENA [email or web address]) Nutritional Asmnt/Malnutrition Patient General Information Nutritional Screening Moderate Risk Diagnosis psychosis Pertinent Medical Hx/Surgical Hx DJD, bipolar, dementia, spcyhosis Subjective Information per EMR, PO intake 100% of each meal. Per nurse note, pt was oriented to self only. Current Diet Order/ Nutrition Support pureed Pertinent Medications culturelle, levaquin, theragran Pertinent Labs 12/11 nutrition labs WNL Nutritional Hx/Data Height 1.73 m Height (Calculated Centimeters) 172.7 Current Weight (lbs) 56.699 kg Weight (Calculated Kilograms) 56.7 Weight (Calculated Grams) 60320.0 % Usual Body Weight 154 Body Mass Index (BMI) 19.0 Weight Status Approriate GI Symptoms GI Symptoms None Last BM 12/11 x 2 Difficult in: None Skin Integrity/Comment: intact Current %PO Good (75-100%) Estimated Nutritional Goals BEE in Kcals: Using Current wt Calories/Kcals/Kg 27-32 Kcals Calculated 3407-2260 Protein: Using Current wt Protein g/k-1.2 Protein Calculated 57-68 Fluid: ml 1539-1824ml (1ml/kcal) Nutritional Problem No current Nutrition Prob Problem N/A Intervention/Recommendation Comments 1. Continue with current diet as ordered. 2. Monitor PO intake, wt, labs and skin integrity 3. F/U as low risk in 7 days, 12/18 Expected Outcomes/Goals Expected Outcomes/Goals 1. PO intake to meet at least 75% of nutritional needs. 2. Wt stability, skin to remain intact, labs WNL.
--- NOTE | 2017-12-14 03:20 | Progress Notes ---
DATE: 12/13/2017 SUBJECTIVE: Staff was spoken to. The patient is interviewed. Mood is noted to be less irritable. Affect is appropriate. The patient's coping skills are noted to be fair at this time. No side effects to medications are noted. The patient's sleep is noted to be improving. Appetite is noted to be very poor. Coping skills are noted to be very poor. No side effects to medications are noted. The patient is currently on 50 mg of Topamax, which is going to be discontinued and the patient is going to be followed up with supportive therapy. The patient is currently maintained on 2.5 mg of Zyprexa and has been able to tolerate the medication. ASSESSMENT: The patient is still psychotic. PLAN: To continue the patient with supportive therapy. We encouraged the patient to verbalize the concerns rather than to act out. JOB# [id number]
[2017-12-14] MEDS: Multivitamin Tab PO SCH ×2 (09:12→09:24)
[2017-12-14] MEDS: Lactobacillus Rhamnosus GG 15 Billion CFU CAP.SPRINK PO SCH ×2 (09:12→09:23)
--- NOTE | 2017-12-14 21:11 | Internal Medicine Prog Note ---
Internal Medicine Subjective - Subjective Service Date: 12/14/17 Patient seen and examined:: without staff Patient is:: awake, in bed, confused Per staff patient has:: no adverse event Internal Medicine Objective - Results Result Diagrams: 12/11/17 06:30 12/11/17 06:30 Recent Labs: Laboratory Last Values WBC 6.3 Th/cmm (4.8-10.8) 12/11/17 06:30 RBC 4.85 Mil/cmm (4.30-5.70) 12/11/17 06:30 Hgb 14.3 gm/dL (12-16) 12/11/17 06:30 Hct 43.4 % (41.0-60) 12/11/17 06:30 MCV 89.4 fl (80-99) 12/11/17 06:30 MCH 29.4 pg (26.0-30.0) 12/11/17 06:30 MCHC Differential 32.9 pg (28.0-36.0) 12/11/17 06:30 RDW 13.6 % (11.5-20.0) 12/11/17 06:30 Plt Count 202 Th/cmm (150-400) 12/11/17 06:30 MPV 8.6 fl 12/11/17 06:30 Neutrophils % 68.9 % (40.0-80.0) 12/11/17 06:30 Band Neutrophils % 5 % (0-10) 12/09/17 14:55 Lymphocytes % 18.3 % (20.0-50.0) L 12/11/17 06:30 Monocytes % 10.2 % (2.0-10.0) H 12/11/17 06:30 Eosinophils % 2.4 % (0.0-5.0) 12/11/17 06:30 Basophils % 0.2 % (0.0-2.0) 12/11/17 06:30 Neutrophils (Manual) 86 % (40-80) H 12/09/17 14:55 Lymphocytes 6 % (20-50) L 12/09/17 14:55 Monocytes 3 % (2-10) 12/09/17 14:55 Sodium 136 mEq/L (136-145) 12/11/17 06:30 Potassium 3.5 mEq/L (3.5-5.1) 12/11/17 06:30 Chloride 104 mEq/L (98-107) 12/11/17 06:30 Carbon Dioxide 27.6 mEq/L (21.0-31.0) 12/11/17 06:30 Anion Gap 7.9 (7.0-16.0) 12/11/17 06:30 BUN 16 mg/dL (7-25) 12/11/17 06:30 Creatinine 0.7 mg/dL (0.7-1.3) 12/11/17 06:30 Est GFR ( Amer) > 60.0 ml/min (>90) 12/11/17 06:30 Est GFR (Non-Af Amer) > 60.0 ml/min 12/11/17 06:30 BUN/Creatinine Ratio 22.9 12/11/17 06:30 Glucose 96 mg/dL (70-105) 12/11/17 06:30 Hemoglobin A1c % 5.0 % (4.0-6.0) 12/05/17 14:00 Calcium 9.9 mg/dL (8.6-10.3) 12/11/17 06:30 Total Bilirubin 0.8 mg/dL (0.3-1.0) 12/09/17 14:55 AST 19 U/L (13-39) 12/09/17 14:55 ALT 9 U/L (7-52) 12/09/17 14:55 Alkaline Phosphatase 71 U/L (34-104) 12/09/17 14:55 Total Protein 6.9 gm/dL (6.0-8.3) 12/09/17 14:55 Albumin 3.9 gm/dL (4.2-5.5) L 12/09/17 14:55 Globulin 3.0 gm/dL 12/09/17 14:55 Albumin/Globulin Ratio 1.3 (1.0-1.8) 12/09/17 14:55 Triglycerides 49 mg/dL (<150) 12/05/17 14:00 Cholesterol 111 mg/dL (<200) 12/05/17 14:00 LDL Cholesterol Direct 44 mg/dL (75-193) L 12/05/17 14:00 HDL Cholesterol 51 mg/dL (23-92) 12/05/17 14:00 TSH 0.58 uIU/ml (0.34-5.60) 12/05/17 14:00 Urine Source CLEAN C 12/09/17 15:05 Urine Color YELLOW 12/09/17 15:05 Urine Clarity SLIGHTLY HAZY (CLEAR) 12/09/17 15:05 Urine pH 6.5 (4.6 - 8.0) 12/09/17 15:05 Ur Specific [place] 1.015 (1.005-1.030) 12/09/17 15:05 Urine Protein 30 mg/dL (NEGATIVE) H 12/09/17 15:05 Urine Glucose (UA) NEGATIVE mg/dL (NEGATIVE) 12/09/17 15:05 Urine Ketones NEGATIVE mg/dL (NEGATIVE) 12/09/17 15:05 Urine Blood MODERATE (NEGATIVE) H 12/09/17 15:05 Urine Nitrate POSITIVE (NEGATIVE) H 12/09/17 15:05 Urine Bilirubin NEGATIVE (NEGATIVE) 12/09/17 15:05 Urine Urobilinogen 1.0 E.U./dL (0.2 - 1.0) 12/09/17 15:05 Ur Leukocyte Esterase SMALL (NEGATIVE) H 12/09/17 15:05 Urine RBC 2-5 /hpf (0-5) H 12/09/17 15:05 Urine WBC 10-25 /hpf (0-5) H 12/09/17 15:05 Ur Epithelial Cells OCCASIONAL /lpf (FEW) 12/09/17 15:05 Urine Bacteria MODERATE /hpf (NONE SEEN) H 12/09/17 15:05 Salicylates < 25.0 mg/L (30.0-100.0) L 12/05/17 14:00 Urine Opiates Screen NEGATIVE (NEGATIVE) 12/09/17 15:05 Urine Methadone Screen NEGATIVE (NEGATIVE) 12/09/17 15:05 Acetaminophen < 10.0 ug/mL (10.0-30.0) L 12/05/17 14:00 Ur Barbiturates Screen NEGATIVE (NEGATIVE) 12/09/17 15:05 Ur Tricyclics Screen NEGATIVE (NEGATIVE) 12/09/17 15:05 Ur Phencyclidine Scrn NEGATIVE (NEGATIVE) 12/09/17 15:05 Amphetamines Screen NEGATIVE (NEGATIVE) 12/09/17 15:05 U Methamphetamines Scrn NEGATIVE (NEGATIVE) 12/09/17 15:05 U Benzodiazepines Scrn NEGATIVE (NEGATIVE) 12/09/17 15:05 U Cocaine Metab Screen NEGATIVE (NEGATIVE) 12/09/17 15:05 U Cannabinoids Screen NEGATIVE (NEGATIVE) 12/09/17 15:05 Ethyl Alcohol < 10 mg/dL (0-10) 12/05/17 14:00 RPR NONREACTIVE (NONREACTIVE) 12/05/17 14:00 - Physical Exam Vitals and I&O: Vital Signs Temp 100.5 F 12/14/17 20:56 Pulse 88 12/14/17 20:56 Resp 18 12/14/17 20:56 BP 105/76 12/14/17 20:56 Pulse Ox 96 12/14/17 20:56 Intake & Output 12/14/17 12/14/17 12/15/17 06:59 18:59 06:59 Intake Total 1320 1200 320 Balance 1320 1200 320 Intake: Oral 1320 1200 320 Other: # Voids 3 3 1 # Bowel Movements 1 1 Active Medications: Current Medications Acetaminophen (Tylenol) 650 mg PO Q4HR PRN PRN Reason: Mild Pain / Temp above 100 Stop: 02/03/18 16:35 Last Admin: 12/11/17 02:18 Dose: 650 mg Al Hydrox/Mg Hydrox/Simethicone (Maalox) 30 ml PO Q4HR PRN PRN Reason: GI DISTRESS Stop: 02/03/18 16:35 Last Admin: 12/11/17 02:18 Dose: 30 ml Lactobacillus Rhamnosus (Culturelle 15b) 1 each PO DAILY [facility] Stop: 02/10/18 08:59 Last Admin: 12/14/17 09:23 Dose: Not Given Levofloxacin (Levaquin) 500 mg PO DAILY [facility] Stop: 02/07/18 15:59 Last Admin: 12/14/17 09:23 Dose: Not Given Magnesium Hydroxide (Milk Of Magnesia) 30 ml PO HS PRN PRN Reason: Constipation Miscellaneous (Probiotic Screen) 1 ea MC PRN PRN PRN Reason: PROTOCOL Stop: 02/09/18 10:29 Multivitamins/Vitamin C (Theragran) 1 tab PO DAILY [facility] Stop: 02/04/18 08:59 Last Admin: 12/14/17 09:24 Dose: Not Given Olanzapine (Zyprexa) 2.5 mg PO HS [facility] PRN Reason: Protocol Stop: 02/09/18 20:59 Last Admin: 12/13/17 21:55 Dose: Not Given General: demented HEENT: NC/AT, PERRLA, EOMI, anicteric sclerae, throat clear Neck: Supple, No JVD, No thyromegaly, No LAD Lungs: CTAB Cardiovascular: RRR, Normal S1, Normal S2, without murmur Abdomen: non-tender, non-distended Extremities: clear Neurological: no change - Procedures Procedures: Procedures Procedure Code Date GROUP PSYCHOTHERAPY 65034 08/19/15 GROUP PSYCHOTHERAPY GZHZZZZ 08/19/15 Internal Medicine Assmt/Plan - Assessment Assessment: 1.DJD. 2.CONSTIPATION. 3.DEMENTIA. 4.PSYCHOSIS. - Plan Plan: CONTINUE ON CURRENT MEDICATION AND DIET. Nutritional Asmnt/Malnutr-PDOC - Dietary Evaluation Malnutrition Findings (Please click <Entered> for more info): Nutritional Asmnt/Malnutrition Start: 12/11/17 16: 02 Text: Status: Complete Freq: Document 12/11/17 16:02 TENA (Rec: 12/11/17 16:06 ATUL [email or web address]) Nutritional Asmnt/Malnutrition Patient General Information Nutritional Screening Moderate Risk Diagnosis psychosis Pertinent Medical Hx/Surgical Hx DJD, bipolar, dementia, spcyhosis Subjective Information per EMR, PO intake 100% of each meal. Per nurse note, pt was oriented to self only. Current Diet Order/ Nutrition Support pureed Pertinent Medications culturelle, levaquin, theragran Pertinent Labs 12/11 nutrition labs WNL Nutritional Hx/Data Height 1.73 m Height (Calculated Centimeters) 172.7 Current Weight (lbs) 56.699 kg Weight (Calculated Kilograms) 56.7 Weight (Calculated Grams) 46329.0 % Usual Body Weight 154 Body Mass Index (BMI) 19.0 Weight Status Approriate GI Symptoms GI Symptoms None Last BM 12/11 x 2 Difficult in: None Skin Integrity/Comment: intact Current %PO Good (75-100%) Estimated Nutritional Goals BEE in Kcals: Using Current wt Calories/Kcals/Kg 27-32 Kcals Calculated 5649-7458 Protein: Using Current wt Protein g/k-1.2 Protein Calculated 57-68 Fluid: ml 1539-1824ml (1ml/kcal) Nutritional Problem No current Nutrition Prob Problem N/A Intervention/Recommendation Comments 1. Continue with current diet as ordered. 2. Monitor PO intake, wt, labs and skin integrity 3. F/U as low risk in 7 days, 12/18 Expected Outcomes/Goals Expected Outcomes/Goals 1. PO intake to meet at least 75% of nutritional needs. 2. Wt stability, skin to remain intact, labs WNL.
--- NOTE | 2017-12-15 03:12 | Progress Notes ---
DATE: 12/14/2017 SUBJECTIVE: Staff was spoken to. The patient is interviewed. Mood is very depressed. Continues to be paranoid. Insight and judgment are noted to be still impaired. Impulse control is noted to be limited. No side effects to the medications are noted. The patient has been having difficult time to cope with the stress. It seems his appetite is still poor and the Topamax has been discontinued. The patient continues to be isolative and withdrawn. ASSESSMENT: The patient is still depressed and psychotic. PLAN: To continue the patient with the current medications and followup. JOB# [id number]
[2017-12-15] MEDS: Lactobacillus Rhamnosus GG 15 Billion CFU CAP.SPRINK PO SCH (09:15)
[2017-12-15] MEDS: Multivitamin Tab PO SCH (09:15)
--- NOTE | 2017-12-15 22:32 | Progress Notes ---
DATE: 12/15/2017 SUBJECTIVE: Staff was spoken to. The patient is interviewed. Mood is noted to be irritable. Affect is constricted. Continues to be paranoid, isolative, and withdrawn. No major problems are noted with the Zyprexa and hence the Zyprexa is going to be gradually increased to 5 mg and the patient is going to be followed up with the supportive therapy. The patient at this time is not able to contract for safety. ASSESSMENT: The patient is still psychotic. PLAN: To increase the dose on the medication and then follow up with the supportive therapy. JOB# [id number]
== END 2017-12-15 17:50 | DRG 885 ==
LOC: ER 13:36 → GERO 15:45
DX: F29 Unspecified psychosis not due to a substance or known physiological condition (principal); F03.91 Unspecified dementia, unspecified severity, with behavioral disturbance; R56.9 Unspecified convulsions; M19.90 Unspecified osteoarthritis, unspecified site; I10 Essential (primary) hypertension; I25.10 Atherosclerotic heart disease of native coronary artery without angina pectoris; E78.5 Hyperlipidemia, unspecified; E87.6 Hypokalemia; K59.00 Constipation, unspecified; R50.9 Fever, unspecified; Z86.73 Personal history of transient ischemic attack (TIA), and cerebral infarction without residual deficits; Z82.49 Family history of ischemic heart disease and other diseases of the circulatory system
CPT/HCPCS: 36415-UA; 7610; 80048-TC; 80053-TC; 80061-TC; 80307; 80320-TC; 80329-TC; 81001-TC; 83036-90; 84443-TC; 85007-TC; 85025-TC; 85027-TC; 86592-TC; 87086-90; 90899; 93005; J1200; J1630; J2060; Z7610

== ENCOUNTER 2018-05-25 16:40 | Inpatient (IN) | payer MEDICAID, MEDICARE, OTHER ==
[2018-05-25] MEDS ORDERED: Lactated Ringer 1,000 ML IV ONE (17:15)
[2018-05-25 17:27] LABS: % BASOPHILS 0.3 % (0.0-2.0); % EOSINOPHILS 2.1 % (0.0-5.0); % LYMPHOCYTES 22.6 % (20.0-50.0); % MONOCYTES 10.8 % (2.0-10.0); % NEUTROPHILS 64.2 % (40.0-80.0); EOSINOPHILE ABSOLUTE 0.1 Th/cmm (0.1-0.4); HEMATOCRIT 39.5 % (41.0-60); HEMOGLOBIN 12.8 gm/dL (12-16); LYMPHOCYTE ABSOLUTE 1.4 Th/cmm (1.5-3.0); MEAN CELL VOLUME 88.2 fl (80-99); MEAN CORPUSCULAR HEMOGLOBIN 28.6 pg (26.0-30.0); MEAN CORPUSCULAR HGB CONC 32.4 pg (28.0-36.0); MEAN PLATELET VOLUME 7.6 fl; MONOCYTE ABSOLUTE 0.6 Th/cmm (0.3-1.0); NEUTROPHILE ABSOLUTE 3.9 Th/cmm (1.8-8.0); PLATELET COUNT 303 Th/cmm (150-400); RED BLOOD COUNT 4.47 Mil/cmm (4.30-5.70); RED CELL DISTRIBUTION WIDTH 13.3 % (11.5-20.0)
[2018-05-25 17:44] LABS: ALB/GLOB RATIO 1.7 (1.0-1.8); ALKALINE PHOSPHATASE 59 U/L (34-104); ANION GAP 9.1 (7.0-16.0); BILIRUBIN,TOTAL 0.3 mg/dL (0.3-1.0); BUN - UREA NITROGEN 16 mg/dL (7-25); CALCIUM SERUM 9.4 mg/dL (8.6-10.3); CARBON DIOXIDE 28.4 mEq/L (21.0-31.0); CHLORIDE 103 mEq/L (98-107); GFR AFRICAN-AMERICAN > 60.0 ml/min (>90); GFR NON AFRICAN-AMERICAN > 60.0 ml/min; GLUCOSE 90 mg/dL (70-105); MAGNESIUM 2.2 mg/dL (1.9-2.7); PHOSPHOROUS 3.6 mg/dL (2.5-5.0); POTASSIUM SERUM 3.5 mEq/L (3.5-5.1); SGOT 16 U/L (13-39); SGPT/ALT 7 U/L (7-52); SODIUM SERUM 137 mEq/L (136-145); TOTAL PROTEIN,SERUM 6.3 gm/dL (6.0-8.3)
[2018-05-25] MEDS ORDERED: Levetiracetam 500 mg/5mL 5mL Vial IV ONE (18:05)
[2018-05-25 19:18] LABS: URINE BILIRUBIN NEGATIVE (NEGATIVE); URINE BLOOD TRACE (NEGATIVE); URINE GLUCOSE (UA) NEGATIVE (NEGATIVE); URINE KETONE NEGATIVE (NEGATIVE); URINE LEUKOCYTE ESTERASE NEGATIVE (NEGATIVE); URINE MICROSCOPIC INDICATED? YES; URINE NITRATE NEGATIVE (NEGATIVE); URINE PROTEIN NEGATIVE (NEGATIVE); URINE SOURCE CATH; URINE UROBILINOGEN 0.2 E.U./dL (0.2 - 1.0)
[2018-05-25 19:21] LABS: URINE CLARITY CLEAR (CLEAR); URINE COLOR YELLOW
[2018-05-25 19:23] LABS: URINE BACTERIA FEW /hpf (NONE SEEN); URINE EPITHELIAL CELLS FEW /lpf (FEW); URINE WBC 0-2 /hpf (0-5)
[2018-05-25 19:28] LABS: AMPHETAMINE URINE NEGATIVE (NEGATIVE); BARBITURATES URINE NEGATIVE (NEGATIVE); BENZODIAZEPINES QUAL URINE NEGATIVE (NEGATIVE); CANNABINOID THC NEGATIVE (NEGATIVE); COCAINE METABOLITE QUAL URINE NEGATIVE (NEGATIVE); METHADONE URINE NEGATIVE (NEGATIVE); METHAMPHETAMINES QUAL URINE NEGATIVE (NEGATIVE); OPIATES (MORPHINE) QUAL. URINE NEGATIVE (NEGATIVE); PHENCYCLIDINE (PCP) URINE NEGATIVE (NEGATIVE); TRICYCLICS (TCA) QUAL. URINE NEGATIVE (NEGATIVE)
--- NOTE | 2018-05-25 19:38 | ED Physician Chart ---
ED Chief Complaint/HPI - Patient Information Date Seen:: 05/25/18 Time Seen:: 16:53 Chief Complaint:: 3 seizures since a.m., on keppra History of Present Illness:: 3 tonic clonic seizures since a.m., on keppra. last keppra level unknown per transferring facility. Allergies:: Allergies Allergy/AdvReac Type Severity Reaction Status Date / Time No Known Allergies Allergy Verified 03/22/17 19:42 Vitals:: Vital Signs - 8 hr 05/25/18 05/25/18 16:53 19:22 Temp 98.9 F 98.9 F HR 74 69 RR 16 18 BP 126/96 O2 Sat % 97 96 Historian:: Medical Records Review:: Nurse's Note Reviewed, Transfer documents Reviewed ED Review of Systems - Review of Systems General/Constitutional: No fever, No chills, No weight loss, No weakness, No diaphoresis, No edema, No loss of appetite Skin: No skin lesions, No rash, No bruising Head: No headache, No light-headedness Eyes: No loss of vision, No pain, No diplopia ENT: No earache, No nasal drainage, No sore throat, No tinnitus Neck: No neck pain, No swelling, No thyromegaly, No stiffness, No mass noted Cardio Vascular: No chest pain, No palpitations, No PND, No orthopnea, No edema Pulmonary: No SOB, No cough, No sputum, No wheezing GI: No nausea, No vomiting, No diarrhea, No pain, No melena, No hematochezia, No constipation, No hematemesis G/U: No dysuria, No frequency, No hematuria Musculoskeletal: No bone or joint pain, No back pain, No muscle pain Endocrine: No polyuria, No polydipsia Psychiatric: No prior psych history, No depression, No anxiety, No suicidal ideation Hematopoietic: No bruising, No lymphadenopathy Allergic/Immuno: No urticaria, No angioedema Neurological: Seizure ED Past Medical History - Past Medical History Obtainable: No Past Medical History: CVA/TIA, Seizures, Other (dysphagia, oralpharyngeal phase) Psychiatricy History: Schizophrenia, Other (psychosis) Family Medical History - Family Member Mother History Unknown: Yes Ethnicity: Unknown Living Status: Unknown Hx Family Cancer: (unknown) Hx Family Coronary Artery Disease: (unknown) Hx Family Congestive Heart Failure: (unknown) Hx Family Hypertension: (unknown) Hx Family Stroke: (unknown) Hx Family Diabetes: (unknown) Hx Family Seizures: (unknown) Hx Family Dementia: (unknown) Hx Family AIDS: (unknown) Hx Family HIV: No Hx Family COPD: (unknown) Hx Family Hepatitis: (unknown) Hx Family Psychiatric Problems: (unknown) Hx Family Tuberculosis: (unknown) ED Physical Exam - Physical Examination Other Gen/Cons comments:: somnolent, looks off to the right and head is off to the right. pale and chronically ill appearing. Other Head comments:: craniotomy scars Other Skin comments:: decreased skin turgor. Neck: Nontender, Full ROM w/o pain, No nuchal rigidity, No mass Respiratory: Nl effort/Exclusion, Clear to Auscultation, No Wheeze/Rhonchi/Rales Cardio Vascular: RRR, No murmur, gallop, rubs, NL S1 S2 GI: No tenderness/rebounding/guarding, No organomegaly, No hernia, Normal BS's, Nondistended, No mass/bruits, No McBurney tenderness Extremities: No tenderness or effusion, Full ROM, normal strength in all extremities Other Neuro/Psych comments:: depressed mentation. nonverbal. ED Labs/Radiology/EKG Results - Lab Results Results: Laboratory Tests 05/25/18 05/25/18 05/25/18 17:21 17:21 19:03 WBC 6.0 RBC 4.47 Hgb 12.8 Hct 39.5 L MCV 88.2 MCH 28.6 MCHC Differential 32.4 RDW 13.3 Plt Count 303 MPV 7.6 Neutrophils % 64.2 Lymphocytes % 22.6 Monocytes % 10.8 H Eosinophils % 2.1 Basophils % 0.3 Sodium 137 Potassium 3.5 Chloride 103 Carbon Dioxide 28.4 Anion Gap 9.1 BUN 16 Creatinine 1.0 Est GFR ( Amer) > 60.0 Est GFR (Non-Af Amer) > 60.0 BUN/Creatinine Ratio 16.0 Glucose 90 Calcium 9.4 Phosphorus 3.6 Magnesium 2.2 Total Bilirubin 0.3 AST 16 ALT 7 Alkaline Phosphatase 59 Total Protein 6.3 Albumin 4.0 L Globulin 2.3 Albumin/Globulin Ratio 1.7 Urine Source Urine Color Urine Clarity Urine pH Ur Specific [place] Urine Protein Urine Glucose (UA) Urine Ketones Urine Blood Urine Nitrate Urine Bilirubin Urine Urobilinogen Ur Leukocyte Esterase Urine RBC Urine WBC Ur Epithelial Cells Urine Bacteria Urine Mucus Urine Opiates Screen NEGATIVE Urine Methadone Screen NEGATIVE Ur Barbiturates Screen NEGATIVE Ur Tricyclics Screen NEGATIVE Ur Phencyclidine Scrn NEGATIVE Amphetamines Screen NEGATIVE U Methamphetamines Scrn NEGATIVE U Benzodiazepines Scrn NEGATIVE U Cocaine Metab Screen NEGATIVE U Cannabinoids Screen NEGATIVE 05/25/18 19:03 WBC RBC Hgb Hct MCV MCH MCHC Differential RDW Plt Count MPV Neutrophils % Lymphocytes % Monocytes % Eosinophils % Basophils % Sodium Potassium Chloride Carbon Dioxide Anion Gap BUN Creatinine Est GFR ( Amer) Est GFR (Non-Af Amer) BUN/Creatinine Ratio Glucose Calcium Phosphorus Magnesium Total Bilirubin AST ALT Alkaline Phosphatase Total Protein Albumin Globulin Albumin/Globulin Ratio Urine Source CATH Urine Color YELLOW Urine Clarity CLEAR Urine pH 6.0 Ur Specific [place] 1.020 Urine Protein NEGATIVE Urine Glucose (UA) NEGATIVE Urine Ketones NEGATIVE Urine Blood TRACE Urine Nitrate NEGATIVE Urine Bilirubin NEGATIVE Urine Urobilinogen 0.2 Ur Leukocyte Esterase NEGATIVE Urine RBC 2-5 H Urine WBC 0-2 Ur Epithelial Cells FEW Urine Bacteria FEW Urine Mucus FEW Urine Opiates Screen Urine Methadone Screen Ur Barbiturates Screen Ur Tricyclics Screen Ur Phencyclidine Scrn Amphetamines Screen U Methamphetamines Scrn U Benzodiazepines Scrn U Cocaine Metab Screen U Cannabinoids Screen ED Assessment - Assessment General Assessment: patient resting comfortably. CT scan: extensive right tempo-parietal craniotomy changes no bleed, no shift, no edema large right [id number]-[id number]-[id number] encephalomalacia Dr. Momin called to admit this patient at 18:20. Assessment/Comments:: called Dr. Simon to let him know the results of the brain CT scan. ED Septic Shock - . Is Septic Shock (SBP<90, OR Lactate>4 mmol\L) present?: No - <6hrs of presentation: Vital Signs: Vital Signs - 8 hr 05/25/18 05/25/18 16:53 19:22 Temp 98.9 F 98.9 F HR 74 69 RR 16 18 BP 126/96 O2 Sat % 97 96 ED Reassessment (Disposition) - Reassessment Reassessment Condition:: Improved - Diagnosis Diagnosis:: Seizure disorder, not well controlled. 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 Simon Time Called:: 18:20 Admitted to:: Telemetry
[2018-05-25] MEDS ORDERED: Magnesium Hydroxide (MOM) 30 mL UDC PO PRN (20:18)
[2018-05-25] MEDS ORDERED: Maalox 30 mL Cup PO PRN (20:19)
[2018-05-25] MEDS: D5-0.9NS w/KCL 20mEq 1,000 ML IV SCH (21:40)
[2018-05-25] MEDS: Enoxaparin 30 mg/0.3 mL 0.3mL Syr SUBQ SCH (21:41)
--- NOTE | 2018-05-25 22:20 | History & Physical ---
ADMIT DATE: 05/25/2018 CHIEF COMPLAINT: Status epilepticus. HISTORY OF PRESENT ILLNESS: The patient is a 58-year-old male with long history of stroke, seizure disorder, dementia, and psychosis. Resident at [facility], transferred to the Emergency Room with status epilepticus. On arrival, the patient had a few episodes of seizure. The patient was loaded with 500 mg of Keppra, admitted to telemetry. CT of the head was significant for old stroke. PAST MEDICAL HISTORY: CVA, seizure disorder, and dementia. PAST SURGICAL HISTORY: No recent surgery. ALLERGIES: None. MEDICATIONS: Follow admission reconciliation. SOCIAL HISTORY: No smoking, no alcohol, no drug. FAMILY HISTORY: Noncontributory. REVIEW OF SYSTEMS: RENAL SYSTEM: No history of chronic renal disorder. CARDIOVASCULAR SYSTEM: No coronary artery disease. ENDOCRINE SYSTEM: No diabetes or thyroid problem. GASTROINTESTINAL SYSTEM: No upper or lower gastrointestinal bleed. NEUROLOGICAL SYSTEM: History of seizure disorder, stroke. SKELETOMUSCULAR SYSTEM: He has a left-sided weakness. HEMATOLOGICAL SYSTEM: No bleeding tendency. GENITOURINARY: No dysuria or hematuria. PHYSICAL EXAMINATION: GENERAL: He is awake, following commands. He is aphasic with left-sided weakness. VITAL SIGNS: Temperature 98.3, heart rate 78, and blood pressure 121/88. HEENT: Normocephalic. Pupils reactive to light and accommodation. Sclerae clear. NECK: Supple. Negative for lymphadenopathy, JVD, or bruit. CHEST: Entry of air bilateral normal. No rales, rhonchi, or wheezing. HEART: S1, S2 normal. No gallop rhythm. ABDOMEN: Soft, bowel sounds positive. EXTREMITIES: No edema. BACK: No vertebral tenderness. SKIN: Intact. NEUROLOGICAL: Awake, alert, left-sided weakness. LABORATORY DATA: White blood 6, hemoglobin 12.8, hematocrit 39.5, and platelet is 303. Sodium 137, potassium 3.5, BUN 16, creatinine 1.0, and albumin 4.0. ASSESSMENT: 1. Status epilepticus. 2. History of cerebrovascular accident. 3. History of dementia. 4. History of psychosis. PLAN: The patient admitted to the hospital under Dr. Simon's service, started on regular diet, IV fluid. Resume his medications. Aspirin 81 mg once a day ordered. Lovenox 40 mg subcutaneous daily ordered. The patient is a full code. JOB# [id number]
[2018-05-26 03:20] VITALS: BP 103/75
[2018-05-26] MEDS ORDERED: Levetiracetam 500 mg/5mL 5mL Vial IV ONE (04:28)
--- NOTE | 2018-05-26 08:38 | Diagnostic Imaging Report ---
Exam: CT examination of brain. HISTORY: Seizure. Total DLP equals 724 CTDI equals 36.5 Findings: Multiple contiguous thin section of brain were obtained from the base of skull to the vertex without administration of contrast material, no prior studies available for comparison. The study demonstrates extensive right temporoparietal craniotomy craniectomy changes with encephalomalacia over the right frontotemporal parietal lobes. Ventricular system is intact. There is no evidence for hemorrhage midline shift or edema. The cerebellum is normal. The visualized paranasal sinuses are well aerated. IMPRESSION: Post operative changes status post extensive right temporoparietal craniotomy changes. The the right hemisphere demonstrates extensive encephalomalacia involving the right frontal temporoparietal lobes.
[2018-05-26] MEDS: Aspirin 81mg Chewable Tab PO SCH (10:06)
[2018-05-26] MEDS: Enoxaparin 30 mg/0.3 mL 0.3mL Syr SUBQ SCH ×2 (10:06→21:43)
[2018-05-26] MEDS: Multivitamin w/ Minerals Tab PO SCH (10:06)
[2018-05-26] MEDS: D5-0.9NS w/KCL 20mEq 1,000 ML IV SCH (13:49)
--- NOTE | 2018-05-26 17:04 | General Progress Note ---
Subjective - Review of Systems Service Date: 05/26/18 Subjective: awake and attentive no seizure noted by staff Objective - Results Result Diagrams: 05/25/18 17:21 05/25/18 17:21 Recent Labs: Laboratory Last Values WBC 6.0 Th/cmm (4.8-10.8) 05/25/18 17:21 RBC 4.47 Mil/cmm (4.30-5.70) 05/25/18 17:21 Hgb 12.8 gm/dL (12-16) 05/25/18 17:21 Hct 39.5 % (41.0-60) L 05/25/18 17:21 MCV 88.2 fl (80-99) 05/25/18 17:21 MCH 28.6 pg (26.0-30.0) 05/25/18 17:21 MCHC Differential 32.4 pg (28.0-36.0) 05/25/18 17:21 RDW 13.3 % (11.5-20.0) 05/25/18 17:21 Plt Count 303 Th/cmm (150-400) 05/25/18 17:21 MPV 7.6 fl 05/25/18 17:21 Neutrophils % 64.2 % (40.0-80.0) 05/25/18 17:21 Lymphocytes % 22.6 % (20.0-50.0) 05/25/18 17:21 Monocytes % 10.8 % (2.0-10.0) H 05/25/18 17:21 Eosinophils % 2.1 % (0.0-5.0) 05/25/18 17:21 Basophils % 0.3 % (0.0-2.0) 05/25/18 17:21 Sodium 137 mEq/L (136-145) 05/25/18 17:21 Potassium 3.5 mEq/L (3.5-5.1) 05/25/18 17:21 Chloride 103 mEq/L (98-107) 05/25/18 17:21 Carbon Dioxide 28.4 mEq/L (21.0-31.0) 05/25/18 17:21 Anion Gap 9.1 (7.0-16.0) 05/25/18 17:21 BUN 16 mg/dL (7-25) 05/25/18 17:21 Creatinine 1.0 mg/dL (0.7-1.3) 05/25/18 17:21 Est GFR ( Amer) > 60.0 ml/min (>90) 05/25/18 17:21 Est GFR (Non-Af Amer) > 60.0 ml/min 05/25/18 17:21 BUN/Creatinine Ratio 16.0 05/25/18 17:21 Glucose 90 mg/dL (70-105) 05/25/18 17:21 Calcium 9.4 mg/dL (8.6-10.3) 05/25/18 17:21 Phosphorus 3.6 mg/dL (2.5-5.0) 05/25/18 17:21 Magnesium 2.2 mg/dL (1.9-2.7) 05/25/18 17:21 Total Bilirubin 0.3 mg/dL (0.3-1.0) 05/25/18 17:21 AST 16 U/L (13-39) 05/25/18 17:21 ALT 7 U/L (7-52) 05/25/18 17:21 Alkaline Phosphatase 59 U/L (34-104) 05/25/18 17:21 Total Protein 6.3 gm/dL (6.0-8.3) 05/25/18 17:21 Albumin 4.0 gm/dL (4.2-5.5) L 05/25/18 17:21 Globulin 2.3 gm/dL 05/25/18 17:21 Albumin/Globulin Ratio 1.7 (1.0-1.8) 05/25/18 17:21 Urine Source CATH 05/25/18 19:03 Urine Color YELLOW 05/25/18 19:03 Urine Clarity CLEAR (CLEAR) 05/25/18 19:03 Urine pH 6.0 (4.6 - 8.0) 05/25/18 19:03 Ur Specific [place] 1.020 (1.005-1.030) 05/25/18 19:03 Urine Protein NEGATIVE mg/dL (NEGATIVE) 05/25/18 19:03 Urine Glucose (UA) NEGATIVE mg/dL (NEGATIVE) 05/25/18 19:03 Urine Ketones NEGATIVE mg/dL (NEGATIVE) 05/25/18 19:03 Urine Blood TRACE (NEGATIVE) 05/25/18 19:03 Urine Nitrate NEGATIVE (NEGATIVE) 05/25/18 19:03 Urine Bilirubin NEGATIVE (NEGATIVE) 05/25/18 19:03 Urine Urobilinogen 0.2 E.U./dL (0.2 - 1.0) 05/25/18 19:03 Ur Leukocyte Esterase NEGATIVE (NEGATIVE) 05/25/18 19:03 Urine RBC 2-5 /hpf (0-5) H 05/25/18 19:03 Urine WBC 0-2 /hpf (0-5) 05/25/18 19:03 Ur Epithelial Cells FEW /lpf (FEW) 05/25/18 19:03 Urine Bacteria FEW /hpf (NONE SEEN) 05/25/18 19:03 Urine Mucus FEW /lpf (FEW) 05/25/18 19:03 Urine Opiates Screen NEGATIVE (NEGATIVE) 05/25/18 19:03 Urine Methadone Screen NEGATIVE (NEGATIVE) 05/25/18 19:03 Ur Barbiturates Screen NEGATIVE (NEGATIVE) 05/25/18 19:03 Ur Tricyclics Screen NEGATIVE (NEGATIVE) 05/25/18 19:03 Ur Phencyclidine Scrn NEGATIVE (NEGATIVE) 05/25/18 19:03 Amphetamines Screen NEGATIVE (NEGATIVE) 05/25/18 19:03 U Methamphetamines Scrn NEGATIVE (NEGATIVE) 05/25/18 19:03 U Benzodiazepines Scrn NEGATIVE (NEGATIVE) 05/25/18 19:03 U Cocaine Metab Screen NEGATIVE (NEGATIVE) 05/25/18 19:03 U Cannabinoids Screen NEGATIVE (NEGATIVE) 05/25/18 19:03 - Physical Exam Vitals and I&O: Vital Signs Temp 97.7 F 05/26/18 16:01 Pulse 85 05/26/18 16:01 Resp 18 05/26/18 16:01 BP 105/59 05/26/18 16:01 Pulse Ox 93 05/26/18 16:01 Intake & Output 05/25/18 05/26/18 05/26/18 18:59 06:59 18:59 Intake Total 445 1000 Balance 445 1000 Weight (lbs) 58.967 kg 65.181 kg Intake: Intake, IV Amount 445 1000 D5-0.9NS w/KCL 20mEq 1, 1000 000 ml @ 75 mls/hr IV . [id number] [facility] Rx#:[id number] Lactated Ringer 1,000 ml 125 @ 125 mls/hr IV .Q8H ONE Rx#:[id number] Levetiracetam 1,000 mg In 320 Sodium Chloride 0.9% 100 ml @ 400 mls/hr IV Q12H [facility] Rx#:[id number] Other: Weight Source Estimated Bedscale Active Medications: Current Medications Al Hydrox/Mg Hydrox/Simethicone (Maalox) 30 ml PO Q6H PRN PRN Reason: ABDOMINAL DISTRESS Aspirin (Aspirin Chewable) 81 mg PO DAILY [facility] Stop: 07/25/18 08:59 Last Admin: 05/26/18 10:06 Dose: 81 mg Docusate Sodium (Colace) 250 mg PO DAILY [facility] Stop: 07/25/18 08:59 Last Admin: 05/26/18 10:06 Dose: 250 mg Enoxaparin Sodium (Lovenox) 30 mg SUBQ Q12HR [facility] Stop: 07/24/18 20:59 Last Admin: 05/26/18 10:06 Dose: 30 mg Potassium Chloride/Dextrose/Sod Cl (D5-0.9ns W/Kcl 20meq) 1,000 mls @ 75 mls/ hr IV .[id number] [facility] Stop: 07/24/18 20:50 Last Admin: 05/26/18 13:49 Dose: 75 mls/hr Levetiracetam 1,000 mg/ Sodium (Chloride) 110 mls @ 400 mls/hr IV Q12HR [facility] Stop: 07/24/18 17:44 Magnesium Hydroxide (Milk Of Magnesia) 30 ml PO HS PRN PRN Reason: Constipation Stop: 07/24/18 20:17 Olanzapine (Zyprexa) 5 mg PO HS [facility]; Protocol Stop: 07/24/18 20:59 Last Admin: 05/25/18 21:41 Dose: 5 mg General: Alert, No acute distress HEENT: Atraumatic, PERRLA Neck: Supple, JVD Cardiovascular: Regular rate, Normal S1, Normal S2 Lungs: Clear to auscultation Abdomen: Bowel sounds, Soft - Procedures Procedures: Procedures Procedure Code Date GROUP PSYCHOTHERAPY 67228 08/19/15 GROUP PSYCHOTHERAPY GZHZZZZ 08/19/15 Assessment/Plan - Problem List Patient Problems: All Active Problems POSSIBLE SEIZURE ACTIVITY (Acute) - Assessment Assessment: status epilepticus hx CVA hx dementia - Plan Plan: continue current treatment
[2018-05-27] MEDS: Multivitamin w/ Minerals Tab PO SCH (08:17)
[2018-05-27] MEDS: Aspirin 81mg Chewable Tab PO SCH (08:18)
[2018-05-27] MEDS ORDERED: Enoxaparin 30 mg/0.3 mL 0.3mL Syr SUBQ SCH (09:00)
[2018-05-27] MEDS: Enoxaparin 40 mg/0.4 mL 0.4mL Syr SUBQ SCH (11:06)
[2018-05-27] MEDS: D5-0.9NS w/KCL 20mEq 1,000 ML IV SCH (12:37)
--- NOTE | 2018-05-27 15:33 | General Progress Note ---
Subjective - Review of Systems Service Date: 05/27/18 Subjective: awake and attentive resting comfortably Objective - Results Result Diagrams: 05/25/18 17:21 05/25/18 17:21 Recent Labs: Laboratory Last Values WBC 6.0 Th/cmm (4.8-10.8) 05/25/18 17:21 RBC 4.47 Mil/cmm (4.30-5.70) 05/25/18 17:21 Hgb 12.8 gm/dL (12-16) 05/25/18 17:21 Hct 39.5 % (41.0-60) L 05/25/18 17:21 MCV 88.2 fl (80-99) 05/25/18 17:21 MCH 28.6 pg (26.0-30.0) 05/25/18 17:21 MCHC Differential 32.4 pg (28.0-36.0) 05/25/18 17:21 RDW 13.3 % (11.5-20.0) 05/25/18 17:21 Plt Count 303 Th/cmm (150-400) 05/25/18 17:21 MPV 7.6 fl 05/25/18 17:21 Neutrophils % 64.2 % (40.0-80.0) 05/25/18 17:21 Lymphocytes % 22.6 % (20.0-50.0) 05/25/18 17:21 Monocytes % 10.8 % (2.0-10.0) H 05/25/18 17:21 Eosinophils % 2.1 % (0.0-5.0) 05/25/18 17:21 Basophils % 0.3 % (0.0-2.0) 05/25/18 17:21 Sodium 137 mEq/L (136-145) 05/25/18 17:21 Potassium 3.5 mEq/L (3.5-5.1) 05/25/18 17:21 Chloride 103 mEq/L (98-107) 05/25/18 17:21 Carbon Dioxide 28.4 mEq/L (21.0-31.0) 05/25/18 17:21 Anion Gap 9.1 (7.0-16.0) 05/25/18 17:21 BUN 16 mg/dL (7-25) 05/25/18 17:21 Creatinine 1.0 mg/dL (0.7-1.3) 05/25/18 17:21 Est GFR ( Amer) > 60.0 ml/min (>90) 05/25/18 17:21 Est GFR (Non-Af Amer) > 60.0 ml/min 05/25/18 17:21 BUN/Creatinine Ratio 16.0 05/25/18 17:21 Glucose 90 mg/dL (70-105) 05/25/18 17:21 Calcium 9.4 mg/dL (8.6-10.3) 05/25/18 17:21 Phosphorus 3.6 mg/dL (2.5-5.0) 05/25/18 17:21 Magnesium 2.2 mg/dL (1.9-2.7) 05/25/18 17:21 Total Bilirubin 0.3 mg/dL (0.3-1.0) 05/25/18 17:21 AST 16 U/L (13-39) 05/25/18 17:21 ALT 7 U/L (7-52) 05/25/18 17:21 Alkaline Phosphatase 59 U/L (34-104) 05/25/18 17:21 Total Protein 6.3 gm/dL (6.0-8.3) 05/25/18 17:21 Albumin 4.0 gm/dL (4.2-5.5) L 05/25/18 17:21 Globulin 2.3 gm/dL 05/25/18 17:21 Albumin/Globulin Ratio 1.7 (1.0-1.8) 05/25/18 17:21 Urine Source CATH 05/25/18 19:03 Urine Color YELLOW 05/25/18 19:03 Urine Clarity CLEAR (CLEAR) 05/25/18 19:03 Urine pH 6.0 (4.6 - 8.0) 05/25/18 19:03 Ur Specific [place] 1.020 (1.005-1.030) 05/25/18 19:03 Urine Protein NEGATIVE mg/dL (NEGATIVE) 05/25/18 19:03 Urine Glucose (UA) NEGATIVE mg/dL (NEGATIVE) 05/25/18 19:03 Urine Ketones NEGATIVE mg/dL (NEGATIVE) 05/25/18 19:03 Urine Blood TRACE (NEGATIVE) 05/25/18 19:03 Urine Nitrate NEGATIVE (NEGATIVE) 05/25/18 19:03 Urine Bilirubin NEGATIVE (NEGATIVE) 05/25/18 19:03 Urine Urobilinogen 0.2 E.U./dL (0.2 - 1.0) 05/25/18 19:03 Ur Leukocyte Esterase NEGATIVE (NEGATIVE) 05/25/18 19:03 Urine RBC 2-5 /hpf (0-5) H 05/25/18 19:03 Urine WBC 0-2 /hpf (0-5) 05/25/18 19:03 Ur Epithelial Cells FEW /lpf (FEW) 05/25/18 19:03 Urine Bacteria FEW /hpf (NONE SEEN) 05/25/18 19:03 Urine Mucus FEW /lpf (FEW) 05/25/18 19:03 Urine Opiates Screen NEGATIVE (NEGATIVE) 05/25/18 19:03 Urine Methadone Screen NEGATIVE (NEGATIVE) 05/25/18 19:03 Ur Barbiturates Screen NEGATIVE (NEGATIVE) 05/25/18 19:03 Ur Tricyclics Screen NEGATIVE (NEGATIVE) 05/25/18 19:03 Ur Phencyclidine Scrn NEGATIVE (NEGATIVE) 05/25/18 19:03 Amphetamines Screen NEGATIVE (NEGATIVE) 05/25/18 19:03 U Methamphetamines Scrn NEGATIVE (NEGATIVE) 05/25/18 19:03 U Benzodiazepines Scrn NEGATIVE (NEGATIVE) 05/25/18 19:03 U Cocaine Metab Screen NEGATIVE (NEGATIVE) 05/25/18 19:03 U Cannabinoids Screen NEGATIVE (NEGATIVE) 05/25/18 19:03 - Physical Exam Vitals and I&O: Vital Signs Temp 98.3 F 05/27/18 15:28 Pulse 69 05/27/18 15:28 Resp 18 05/27/18 15:28 BP 122/78 05/27/18 15:28 Pulse Ox 98 05/27/18 15:28 Intake & Output 05/26/18 05/27/18 05/27/18 18:59 06:59 18:59 Intake Total 1000 1450 500 Balance 1000 1450 500 Weight (lbs) 64.274 kg 66.814 kg Intake: Intake, IV Amount 1000 1110 D5-0.9NS w/KCL 20mEq 1, 1000 1000 000 ml @ 75 mls/hr IV . [id number] [facility] Rx#:[id number] Levetiracetam 1,000 mg In 110 Sodium Chloride 0.9% 100 ml @ 400 mls/hr IV Q12HR [facility] Rx#:[id number] Oral 340 500 Tube Feeding 0 Other: # Voids 3 # Bowel Movements 0 Weight Source Bedscale Bedscale Active Medications: Current Medications Al Hydrox/Mg Hydrox/Simethicone (Maalox) 30 ml PO Q6H PRN PRN Reason: ABDOMINAL DISTRESS Aspirin (Aspirin Chewable) 81 mg PO DAILY [facility] Stop: 07/25/18 08:59 Last Admin: 05/27/18 08:18 Dose: 81 mg Docusate Sodium (Colace) 250 mg PO DAILY [facility] Stop: 07/25/18 08:59 Last Admin: 05/27/18 08:18 Dose: 250 mg Enoxaparin Sodium (Lovenox) 40 mg SUBQ DAILY [facility] Stop: 07/26/18 09:14 Last Admin: 05/27/18 11:06 Dose: Not Given Potassium Chloride/Dextrose/Sod Cl (D5-0.9ns W/Kcl 20meq) 1,000 mls @ 75 mls/ hr IV .[id number] [facility] Stop: 07/24/18 20:50 Last Admin: 05/27/18 12:37 Dose: 75 mls/hr Levetiracetam 1,000 mg/ Sodium (Chloride) 110 mls @ 400 mls/hr IV Q12HR [facility] Stop: 07/24/18 17:44 Last Admin: 05/27/18 09:00 Dose: 400 mls/hr Magnesium Hydroxide (Milk Of Magnesia) 30 ml PO HS PRN PRN Reason: Constipation Stop: 07/24/18 20:17 Olanzapine (Zyprexa) 5 mg PO HS [facility]; Protocol Stop: 07/24/18 20:59 Last Admin: 05/26/18 21:44 Dose: 5 mg General: Alert, No acute distress HEENT: Atraumatic, PERRLA Neck: Supple, JVD Cardiovascular: Regular rate, Normal S1, Normal S2 Lungs: Clear to auscultation Abdomen: Bowel sounds, Soft - Procedures Procedures: Procedures Procedure Code Date GROUP PSYCHOTHERAPY 85521 08/19/15 GROUP PSYCHOTHERAPY GZHZZZZ 08/19/15 Assessment/Plan - Problem List Patient Problems: All Active Problems POSSIBLE SEIZURE ACTIVITY (Acute) - Assessment Assessment: status epilepticus hx CVA hx dementia - Plan Plan: continue current treatment
[2018-05-28] MEDS: D5-0.9NS w/KCL 20mEq 1,000 ML IV SCH (01:58)
[2018-05-28] MEDS: Aspirin 81mg Chewable Tab PO SCH (08:34)
[2018-05-28] MEDS: Multivitamin w/ Minerals Tab PO SCH (08:34)
[2018-05-28] MEDS: Enoxaparin 40 mg/0.4 mL 0.4mL Syr SUBQ SCH (08:35)
--- NOTE | 2018-05-28 15:21 | General Progress Note ---
Subjective - Review of Systems Service Date: 05/28/18 Subjective: awake and attentive resting comfortably Objective - Results Result Diagrams: 05/25/18 17:21 05/25/18 17:21 Recent Labs: Laboratory Last Values WBC 6.0 Th/cmm (4.8-10.8) 05/25/18 17:21 RBC 4.47 Mil/cmm (4.30-5.70) 05/25/18 17:21 Hgb 12.8 gm/dL (12-16) 05/25/18 17:21 Hct 39.5 % (41.0-60) L 05/25/18 17:21 MCV 88.2 fl (80-99) 05/25/18 17:21 MCH 28.6 pg (26.0-30.0) 05/25/18 17:21 MCHC Differential 32.4 pg (28.0-36.0) 05/25/18 17:21 RDW 13.3 % (11.5-20.0) 05/25/18 17:21 Plt Count 303 Th/cmm (150-400) 05/25/18 17:21 MPV 7.6 fl 05/25/18 17:21 Neutrophils % 64.2 % (40.0-80.0) 05/25/18 17:21 Lymphocytes % 22.6 % (20.0-50.0) 05/25/18 17:21 Monocytes % 10.8 % (2.0-10.0) H 05/25/18 17:21 Eosinophils % 2.1 % (0.0-5.0) 05/25/18 17:21 Basophils % 0.3 % (0.0-2.0) 05/25/18 17:21 Sodium 137 mEq/L (136-145) 05/25/18 17:21 Potassium 3.5 mEq/L (3.5-5.1) 05/25/18 17:21 Chloride 103 mEq/L (98-107) 05/25/18 17:21 Carbon Dioxide 28.4 mEq/L (21.0-31.0) 05/25/18 17:21 Anion Gap 9.1 (7.0-16.0) 05/25/18 17:21 BUN 16 mg/dL (7-25) 05/25/18 17:21 Creatinine 1.0 mg/dL (0.7-1.3) 05/25/18 17:21 Est GFR ( Amer) > 60.0 ml/min (>90) 05/25/18 17:21 Est GFR (Non-Af Amer) > 60.0 ml/min 05/25/18 17:21 BUN/Creatinine Ratio 16.0 05/25/18 17:21 Glucose 90 mg/dL (70-105) 05/25/18 17:21 Calcium 9.4 mg/dL (8.6-10.3) 05/25/18 17:21 Phosphorus 3.6 mg/dL (2.5-5.0) 05/25/18 17:21 Magnesium 2.2 mg/dL (1.9-2.7) 05/25/18 17:21 Total Bilirubin 0.3 mg/dL (0.3-1.0) 05/25/18 17:21 AST 16 U/L (13-39) 05/25/18 17:21 ALT 7 U/L (7-52) 05/25/18 17:21 Alkaline Phosphatase 59 U/L (34-104) 05/25/18 17:21 Total Protein 6.3 gm/dL (6.0-8.3) 05/25/18 17:21 Albumin 4.0 gm/dL (4.2-5.5) L 05/25/18 17:21 Globulin 2.3 gm/dL 05/25/18 17:21 Albumin/Globulin Ratio 1.7 (1.0-1.8) 05/25/18 17:21 Urine Source CATH 05/25/18 19:03 Urine Color YELLOW 05/25/18 19:03 Urine Clarity CLEAR (CLEAR) 05/25/18 19:03 Urine pH 6.0 (4.6 - 8.0) 05/25/18 19:03 Ur Specific [place] 1.020 (1.005-1.030) 05/25/18 19:03 Urine Protein NEGATIVE mg/dL (NEGATIVE) 05/25/18 19:03 Urine Glucose (UA) NEGATIVE mg/dL (NEGATIVE) 05/25/18 19:03 Urine Ketones NEGATIVE mg/dL (NEGATIVE) 05/25/18 19:03 Urine Blood TRACE (NEGATIVE) 05/25/18 19:03 Urine Nitrate NEGATIVE (NEGATIVE) 05/25/18 19:03 Urine Bilirubin NEGATIVE (NEGATIVE) 05/25/18 19:03 Urine Urobilinogen 0.2 E.U./dL (0.2 - 1.0) 05/25/18 19:03 Ur Leukocyte Esterase NEGATIVE (NEGATIVE) 05/25/18 19:03 Urine RBC 2-5 /hpf (0-5) H 05/25/18 19:03 Urine WBC 0-2 /hpf (0-5) 05/25/18 19:03 Ur Epithelial Cells FEW /lpf (FEW) 05/25/18 19:03 Urine Bacteria FEW /hpf (NONE SEEN) 05/25/18 19:03 Urine Mucus FEW /lpf (FEW) 05/25/18 19:03 Urine Opiates Screen NEGATIVE (NEGATIVE) 05/25/18 19:03 Urine Methadone Screen NEGATIVE (NEGATIVE) 05/25/18 19:03 Ur Barbiturates Screen NEGATIVE (NEGATIVE) 05/25/18 19:03 Ur Tricyclics Screen NEGATIVE (NEGATIVE) 05/25/18 19:03 Ur Phencyclidine Scrn NEGATIVE (NEGATIVE) 05/25/18 19:03 Amphetamines Screen NEGATIVE (NEGATIVE) 05/25/18 19:03 U Methamphetamines Scrn NEGATIVE (NEGATIVE) 05/25/18 19:03 U Benzodiazepines Scrn NEGATIVE (NEGATIVE) 05/25/18 19:03 U Cocaine Metab Screen NEGATIVE (NEGATIVE) 05/25/18 19:03 U Cannabinoids Screen NEGATIVE (NEGATIVE) 05/25/18 19:03 - Physical Exam Vitals and I&O: Vital Signs Temp 97.8 F 05/28/18 11:00 Pulse 89 05/28/18 11:00 Resp 18 05/28/18 12:00 BP 116/73 05/28/18 11:00 Pulse Ox 98 05/28/18 11:00 Intake & Output 05/27/18 05/28/18 05/28/18 18:59 06:59 18:59 Intake Total 1010 1310 500 Balance 1010 1310 500 Weight (lbs) 66.814 kg 66.224 kg 67.313 kg Intake: Intake, IV Amount 110 1110 D5-0.9NS w/KCL 20mEq 1, 1000 000 ml @ 75 mls/hr IV . [id number] [facility] Rx#:[id number] Levetiracetam 1,000 mg In 110 110 Sodium Chloride 0.9% 100 ml @ 400 mls/hr IV Q12HR [facility] Rx#:[id number] Oral 900 200 500 Tube Feeding 0 Other: # Voids 3 3 # Bowel Movements 0 1 Stool Characteristics Soft Soft Liquid Formed Black Brown Green Minor Weight Source Bedscale Bedscale Bedscale Active Medications: Current Medications Al Hydrox/Mg Hydrox/Simethicone (Maalox) 30 ml PO Q6H PRN PRN Reason: ABDOMINAL DISTRESS Aspirin (Aspirin Chewable) 81 mg PO DAILY [facility] Stop: 07/25/18 08:59 Last Admin: 05/28/18 08:34 Dose: 81 mg Docusate Sodium (Colace) 250 mg PO DAILY [facility] Stop: 07/25/18 08:59 Last Admin: 05/28/18 08:34 Dose: 250 mg Enoxaparin Sodium (Lovenox) 40 mg SUBQ DAILY [facility] Stop: 07/26/18 09:14 Last Admin: 05/28/18 08:35 Dose: Not Given Potassium Chloride/Dextrose/Sod Cl (D5-0.9ns W/Kcl 20meq) 1,000 mls @ 75 mls/ hr IV .[id number] [facility] Stop: 07/24/18 20:50 Last Admin: 05/28/18 01:58 Dose: 75 mls/hr Levetiracetam 1,000 mg/ Sodium (Chloride) 110 mls @ 400 mls/hr IV Q12HR [facility] Stop: 07/24/18 17:44 Last Admin: 05/28/18 08:37 Dose: 400 mls/hr Magnesium Hydroxide (Milk Of Magnesia) 30 ml PO HS PRN PRN Reason: Constipation Stop: 07/24/18 20:17 Olanzapine (Zyprexa) 5 mg PO HS [facility]; Protocol Stop: 07/24/18 20:59 Last Admin: 05/27/18 20:31 Dose: 5 mg General: Alert, No acute distress HEENT: Atraumatic, PERRLA Neck: Supple, JVD Cardiovascular: Regular rate, Normal S1, Normal S2 Lungs: Clear to auscultation Abdomen: Bowel sounds, Soft - Procedures Procedures: Procedures Procedure Code Date GROUP PSYCHOTHERAPY 88571 08/19/15 GROUP PSYCHOTHERAPY GZHZZZZ 11/25/15 Assessment/Plan - Problem List Patient Problems: All Active Problems POSSIBLE SEIZURE ACTIVITY (Acute) - Assessment Assessment: status epilepticus hx CVA hx dementia - Plan Plan: continue current treatment
[2018-05-29 06:28] LABS: % BASOPHILS 0.1 % (0.0-2.0); % EOSINOPHILS 3.7 % (0.0-5.0); % LYMPHOCYTES 19.9 % (20.0-50.0); % MONOCYTES 7.8 % (2.0-10.0); % NEUTROPHILS 68.5 % (40.0-80.0); EOSINOPHILE ABSOLUTE 0.2 Th/cmm (0.1-0.4); HEMATOCRIT 40.5 % (41.0-60); HEMOGLOBIN 13.6 gm/dL (12-16); LYMPHOCYTE ABSOLUTE 1.3 Th/cmm (1.5-3.0); MEAN CORPUSCULAR HGB CONC 33.7 pg (28.0-36.0); MEAN PLATELET VOLUME 7.9 fl; MONOCYTE ABSOLUTE 0.5 Th/cmm (0.3-1.0); NEUTROPHILE ABSOLUTE 4.5 Th/cmm (1.8-8.0); PLATELET COUNT 280 Th/cmm (150-400); RED BLOOD COUNT 4.55 Mil/cmm (4.30-5.70); RED CELL DISTRIBUTION WIDTH 13.4 % (11.5-20.0); WHITE BLOOD COUNT 6.5 Th/cmm (4.8-10.8)
[2018-05-29 07:15] LABS: ANION GAP 9.3 (7.0-16.0); BUN - UREA NITROGEN 12 mg/dL (7-25); CALCIUM SERUM 9.2 mg/dL (8.6-10.3); CARBON DIOXIDE 26.5 mEq/L (21.0-31.0); CHLORIDE 106 mEq/L (98-107); CREATININE - SERUM 0.6 mg/dL (0.7-1.3); GFR AFRICAN-AMERICAN > 60.0 ml/min (>90); GFR NON AFRICAN-AMERICAN > 60.0 ml/min; GLUCOSE 89 mg/dL (70-105); POTASSIUM SERUM 3.8 mEq/L (3.5-5.1); SODIUM SERUM 138 mEq/L (136-145)
[2018-05-29] MEDS: Aspirin 81mg Chewable Tab PO SCH (08:41)
[2018-05-29] MEDS: Multivitamin w/ Minerals Tab PO SCH (08:41)
[2018-05-29] MEDS: Enoxaparin 40 mg/0.4 mL 0.4mL Syr SUBQ SCH (08:41)
--- NOTE | 2018-05-29 20:03 | Internal Medicine Prog Note ---
Internal Medicine Subjective - Subjective Service Date: 05/29/18 Patient seen and examined:: without staff Patient is:: awake, verbal, in bed, confused Per staff patient has:: no adverse event Internal Medicine Objective - Results Result Diagrams: 05/29/18 06:00 05/29/18 06:00 Recent Labs: Laboratory Last Values WBC 6.5 Th/cmm (4.8-10.8) 05/29/18 06:00 RBC 4.55 Mil/cmm (4.30-5.70) 05/29/18 06:00 Hgb 13.6 gm/dL (12-16) 05/29/18 06:00 Hct 40.5 % (41.0-60) L 05/29/18 06:00 MCV 89.0 fl (80-99) 05/29/18 06:00 MCH 30.0 pg (26.0-30.0) 05/29/18 06:00 MCHC Differential 33.7 pg (28.0-36.0) 05/29/18 06:00 RDW 13.4 % (11.5-20.0) 05/29/18 06:00 Plt Count 280 Th/cmm (150-400) 05/29/18 06:00 MPV 7.9 fl 05/29/18 06:00 Neutrophils % 68.5 % (40.0-80.0) 05/29/18 06:00 Lymphocytes % 19.9 % (20.0-50.0) L 05/29/18 06:00 Monocytes % 7.8 % (2.0-10.0) 05/29/18 06:00 Eosinophils % 3.7 % (0.0-5.0) 05/29/18 06:00 Basophils % 0.1 % (0.0-2.0) 05/29/18 06:00 Sodium 138 mEq/L (136-145) 05/29/18 06:00 Potassium 3.8 mEq/L (3.5-5.1) 05/29/18 06:00 Chloride 106 mEq/L (98-107) 05/29/18 06:00 Carbon Dioxide 26.5 mEq/L (21.0-31.0) 05/29/18 06:00 Anion Gap 9.3 (7.0-16.0) 05/29/18 06:00 BUN 12 mg/dL (7-25) 05/29/18 06:00 Creatinine 0.6 mg/dL (0.7-1.3) L 05/29/18 06:00 Est GFR ( Amer) > 60.0 ml/min (>90) 05/29/18 06:00 Est GFR (Non-Af Amer) > 60.0 ml/min 05/29/18 06:00 BUN/Creatinine Ratio 20.0 05/29/18 06:00 Glucose 89 mg/dL (70-105) 05/29/18 06:00 Calcium 9.2 mg/dL (8.6-10.3) 05/29/18 06:00 Phosphorus 3.6 mg/dL (2.5-5.0) 05/25/18 17:21 Magnesium 2.2 mg/dL (1.9-2.7) 05/25/18 17:21 Total Bilirubin 0.3 mg/dL (0.3-1.0) 05/25/18 17:21 AST 16 U/L (13-39) 05/25/18 17:21 ALT 7 U/L (7-52) 05/25/18 17:21 Alkaline Phosphatase 59 U/L (34-104) 05/25/18 17:21 Total Protein 6.3 gm/dL (6.0-8.3) 05/25/18 17:21 Albumin 4.0 gm/dL (4.2-5.5) L 05/25/18 17:21 Globulin 2.3 gm/dL 05/25/18 17:21 Albumin/Globulin Ratio 1.7 (1.0-1.8) 05/25/18 17:21 Urine Source CATH 05/25/18 19:03 Urine Color YELLOW 05/25/18 19:03 Urine Clarity CLEAR (CLEAR) 05/25/18 19:03 Urine pH 6.0 (4.6 - 8.0) 05/25/18 19:03 Ur Specific [place] 1.020 (1.005-1.030) 05/25/18 19:03 Urine Protein NEGATIVE mg/dL (NEGATIVE) 05/25/18 19:03 Urine Glucose (UA) NEGATIVE mg/dL (NEGATIVE) 05/25/18 19:03 Urine Ketones NEGATIVE mg/dL (NEGATIVE) 05/25/18 19:03 Urine Blood TRACE (NEGATIVE) 05/25/18 19:03 Urine Nitrate NEGATIVE (NEGATIVE) 05/25/18 19:03 Urine Bilirubin NEGATIVE (NEGATIVE) 05/25/18 19:03 Urine Urobilinogen 0.2 E.U./dL (0.2 - 1.0) 05/25/18 19:03 Ur Leukocyte Esterase NEGATIVE (NEGATIVE) 05/25/18 19:03 Urine RBC 2-5 /hpf (0-5) H 05/25/18 19:03 Urine WBC 0-2 /hpf (0-5) 05/25/18 19:03 Ur Epithelial Cells FEW /lpf (FEW) 05/25/18 19:03 Urine Bacteria FEW /hpf (NONE SEEN) 05/25/18 19:03 Urine Mucus FEW /lpf (FEW) 05/25/18 19:03 Urine Opiates Screen NEGATIVE (NEGATIVE) 05/25/18 19:03 Urine Methadone Screen NEGATIVE (NEGATIVE) 05/25/18 19:03 Ur Barbiturates Screen NEGATIVE (NEGATIVE) 05/25/18 19:03 Ur Tricyclics Screen NEGATIVE (NEGATIVE) 05/25/18 19:03 Ur Phencyclidine Scrn NEGATIVE (NEGATIVE) 05/25/18 19:03 Amphetamines Screen NEGATIVE (NEGATIVE) 05/25/18 19:03 U Methamphetamines Scrn NEGATIVE (NEGATIVE) 05/25/18 19:03 U Benzodiazepines Scrn NEGATIVE (NEGATIVE) 05/25/18 19:03 U Cocaine Metab Screen NEGATIVE (NEGATIVE) 05/25/18 19:03 U Cannabinoids Screen NEGATIVE (NEGATIVE) 05/25/18 19:03 - Physical Exam Vitals and I&O: Vital Signs Temp 98.5 F 05/29/18 15:26 Pulse 75 05/29/18 15:26 Resp 19 05/29/18 18:00 BP 122/74 05/29/18 15:26 Pulse Ox 98 05/29/18 15:26 Intake & Output 05/29/18 05/29/18 05/30/18 06:59 18:59 06:59 Intake Total 110 460 Balance 110 460 Weight (lbs) 64.501 kg 64.41 kg Intake: Intake, IV Amount 110 Levetiracetam 1,000 mg In 110 Sodium Chloride 0.9% 100 ml @ 400 mls/hr IV Q12HR [facility] Rx#:[id number] Oral 460 Other: # Voids 1 # Bowel Movements 1 1 Stool Characteristics Soft Soft Formed Formed Brown Brown Minor Minor Weight Source Bedscale Bedscale Active Medications: Current Medications Al Hydrox/Mg Hydrox/Simethicone (Maalox) 30 ml PO Q6H PRN PRN Reason: ABDOMINAL DISTRESS Aspirin (Aspirin Chewable) 81 mg PO DAILY [facility] Stop: 07/25/18 08:59 Last Admin: 05/29/18 08:41 Dose: 81 mg Docusate Sodium (Colace) 250 mg PO DAILY [facility] Stop: 07/25/18 08:59 Last Admin: 05/29/18 08:41 Dose: 250 mg Enoxaparin Sodium (Lovenox) 40 mg SUBQ DAILY [facility] Stop: 07/26/18 09:14 Last Admin: 05/29/18 08:41 Dose: 40 mg Levetiracetam 1,000 mg/ Sodium (Chloride) 110 mls @ 400 mls/hr IV Q12HR [facility] Stop: 07/24/18 17:44 Last Admin: 05/29/18 08:56 Dose: 400 mls/hr Magnesium Hydroxide (Milk Of Magnesia) 30 ml PO HS PRN PRN Reason: Constipation Stop: 07/24/18 20:17 Olanzapine (Zyprexa) 5 mg PO HS [facility]; Protocol Stop: 07/24/18 20:59 Last Admin: 05/28/18 21:13 Dose: 5 mg General: demented HEENT: NC/AT, PERRLA, anicteric sclerae, throat clear Neck: Supple, No thyromegaly, +2 carotid pulse wo bruit, No LAD Lungs: CTAB Cardiovascular: RRR, Normal S1, Normal S2, without murmur Abdomen: soft, non-tender, non-distended Neurological: no change - Procedures Procedures: Procedures Procedure Code Date GROUP PSYCHOTHERAPY 19055 08/19/15 GROUP PSYCHOTHERAPY GZHZZZZ 08/19/15 Internal Medicine Assmt/Plan - Assessment Assessment: 1.STATUS EPILEPTICUS. 2.CVA - Plan Plan: CONTINUE ON CURRENT MEDICATION AND DIET.
[2018-05-30] MEDS: Aspirin 81mg Chewable Tab PO SCH (11:26)
[2018-05-30] MEDS: Multivitamin w/ Minerals Tab PO SCH (11:26)
[2018-05-30] MEDS: Enoxaparin 40 mg/0.4 mL 0.4mL Syr SUBQ SCH (15:47)
--- NOTE | 2018-05-30 17:03 | Consultation ---
DATE OF CONSULTATION: 05/30/2018 INPATIENT GASTROINTESTINAL CONSULTATION REFERRING PHYSICIAN: Dr. Simon. REASON FOR CONSULTATION: Upper GI bleed. HISTORY OF PRESENT ILLNESS: This is a 58-year-old male who presents with a seizure and apparently had coffee-ground emesis; therefore, I was asked to see the patient. The patient is otherwise a poor historian, unable to give any meaningful history. PAST MEDICAL HISTORY: Stroke, seizure disorder, and dementia. PAST SURGICAL HISTORY: None to add recently. FAMILY HISTORY: Noncontributory. SOCIAL HISTORY: Resident of [facility] facility. ALLERGIES: None. CURRENT MEDICATIONS: Tylenol, Maalox, aspirin, Colace, Lovenox, milk of magnesia, olanzapine, and Zofran. REVIEW OF SYSTEMS: Unobtainable. PHYSICAL EXAMINATION: VITAL SIGNS: Temperature 99.6, breathing 18, pulse of 134/84, and satting 94%. GENERAL: No apparent distress. EYES: Anicteric. Normal conjunctivae. HEENT: Normocephalic, atraumatic. Moist mucous membranes. NECK: Soft, supple. CHEST: Clear. No effort. CARDIOVASCULAR: Regular rate and rhythm. ABDOMEN: Soft, nontender, nondistended. SKIN: Warm and dry. EXTREMITIES: Reveal contractures, otherwise no cyanosis. PSYCHOLOGIC: Awake. LABORATORY DATA: Show white count 6.5, hemoglobin 13.6, and platelets of 280, BUN 12 and creatinine 0.6. IMPRESSION: This is a 58-year-old male with upper gastrointestinal bleed in the form of coffee-ground emesis. Cause could be from esophagitis, gastritis, peptic ulcer disease, etc. PLAN: 1. EGD. 2. Follow H and H and transfuse as needed. 3. Provide the patient with Protonix. Thank you for allowing me to participate. Please call me if any questions. JOB# [id number]
[2018-05-30] MEDS: D5-0.45NS w/20 mEq KCL 1,000 ML IV SCH (20:43)
--- NOTE | 2018-05-30 20:52 | Internal Medicine Prog Note ---
Internal Medicine Subjective - Subjective Service Date: 05/30/18 Patient seen and examined:: with staff (THE PATIENT HAS BEEN THROUGHING UP COFFYGROUND EMESIS WITH FEVER.) Patient is:: awake, verbal, in bed, confused Per staff patient has:: no adverse event Internal Medicine Objective - Results Result Diagrams: 05/29/18 06:00 05/29/18 06:00 Recent Labs: Laboratory Last Values WBC 6.5 Th/cmm (4.8-10.8) 05/29/18 06:00 RBC 4.55 Mil/cmm (4.30-5.70) 05/29/18 06:00 Hgb 13.6 gm/dL (12-16) 05/29/18 06:00 Hct 40.5 % (41.0-60) L 05/29/18 06:00 MCV 89.0 fl (80-99) 05/29/18 06:00 MCH 30.0 pg (26.0-30.0) 05/29/18 06:00 MCHC Differential 33.7 pg (28.0-36.0) 05/29/18 06:00 RDW 13.4 % (11.5-20.0) 05/29/18 06:00 Plt Count 280 Th/cmm (150-400) 05/29/18 06:00 MPV 7.9 fl 05/29/18 06:00 Neutrophils % 68.5 % (40.0-80.0) 05/29/18 06:00 Lymphocytes % 19.9 % (20.0-50.0) L 05/29/18 06:00 Monocytes % 7.8 % (2.0-10.0) 05/29/18 06:00 Eosinophils % 3.7 % (0.0-5.0) 05/29/18 06:00 Basophils % 0.1 % (0.0-2.0) 05/29/18 06:00 Sodium 138 mEq/L (136-145) 05/29/18 06:00 Potassium 3.8 mEq/L (3.5-5.1) 05/29/18 06:00 Chloride 106 mEq/L (98-107) 05/29/18 06:00 Carbon Dioxide 26.5 mEq/L (21.0-31.0) 05/29/18 06:00 Anion Gap 9.3 (7.0-16.0) 05/29/18 06:00 BUN 12 mg/dL (7-25) 05/29/18 06:00 Creatinine 0.6 mg/dL (0.7-1.3) L 05/29/18 06:00 Est GFR ( Amer) > 60.0 ml/min (>90) 05/29/18 06:00 Est GFR (Non-Af Amer) > 60.0 ml/min 05/29/18 06:00 BUN/Creatinine Ratio 20.0 05/29/18 06:00 Glucose 89 mg/dL (70-105) 05/29/18 06:00 Calcium 9.2 mg/dL (8.6-10.3) 05/29/18 06:00 Phosphorus 3.6 mg/dL (2.5-5.0) 05/25/18 17:21 Magnesium 2.2 mg/dL (1.9-2.7) 05/25/18 17:21 Total Bilirubin 0.3 mg/dL (0.3-1.0) 05/25/18 17:21 AST 16 U/L (13-39) 05/25/18 17:21 ALT 7 U/L (7-52) 05/25/18 17:21 Alkaline Phosphatase 59 U/L (34-104) 05/25/18 17:21 Total Protein 6.3 gm/dL (6.0-8.3) 05/25/18 17:21 Albumin 4.0 gm/dL (4.2-5.5) L 05/25/18 17:21 Globulin 2.3 gm/dL 05/25/18 17:21 Albumin/Globulin Ratio 1.7 (1.0-1.8) 05/25/18 17:21 Urine Source CATH 05/25/18 19:03 Urine Color YELLOW 05/25/18 19:03 Urine Clarity CLEAR (CLEAR) 05/25/18 19:03 Urine pH 6.0 (4.6 - 8.0) 05/25/18 19:03 Ur Specific [place] 1.020 (1.005-1.030) 05/25/18 19:03 Urine Protein NEGATIVE mg/dL (NEGATIVE) 05/25/18 19:03 Urine Glucose (UA) NEGATIVE mg/dL (NEGATIVE) 05/25/18 19:03 Urine Ketones NEGATIVE mg/dL (NEGATIVE) 05/25/18 19:03 Urine Blood TRACE (NEGATIVE) 05/25/18 19:03 Urine Nitrate NEGATIVE (NEGATIVE) 05/25/18 19:03 Urine Bilirubin NEGATIVE (NEGATIVE) 05/25/18 19:03 Urine Urobilinogen 0.2 E.U./dL (0.2 - 1.0) 05/25/18 19:03 Ur Leukocyte Esterase NEGATIVE (NEGATIVE) 05/25/18 19:03 Urine RBC 2-5 /hpf (0-5) H 05/25/18 19:03 Urine WBC 0-2 /hpf (0-5) 05/25/18 19:03 Ur Epithelial Cells FEW /lpf (FEW) 05/25/18 19:03 Urine Bacteria FEW /hpf (NONE SEEN) 05/25/18 19:03 Urine Mucus FEW /lpf (FEW) 05/25/18 19:03 Urine Opiates Screen NEGATIVE (NEGATIVE) 05/25/18 19:03 Urine Methadone Screen NEGATIVE (NEGATIVE) 05/25/18 19:03 Ur Barbiturates Screen NEGATIVE (NEGATIVE) 05/25/18 19:03 Ur Tricyclics Screen NEGATIVE (NEGATIVE) 05/25/18 19:03 Ur Phencyclidine Scrn NEGATIVE (NEGATIVE) 05/25/18 19:03 Amphetamines Screen NEGATIVE (NEGATIVE) 05/25/18 19:03 U Methamphetamines Scrn NEGATIVE (NEGATIVE) 05/25/18 19:03 U Benzodiazepines Scrn NEGATIVE (NEGATIVE) 05/25/18 19:03 U Cocaine Metab Screen NEGATIVE (NEGATIVE) 05/25/18 19:03 U Cannabinoids Screen NEGATIVE (NEGATIVE) 05/25/18 19:03 - Physical Exam Vitals and I&O: Vital Signs Temp 101.8 F 05/30/18 15:00 Pulse 120 05/30/18 15:00 Resp 17 05/30/18 18:00 BP 158/96 05/30/18 15:00 Pulse Ox 93 05/30/18 15:00 Intake & Output 05/30/18 05/30/18 05/31/18 06:59 18:59 06:59 Intake Total 110 Output Total 3 Balance 110 -3 Weight (lbs) 63.367 kg 63.049 kg Intake: Intake, IV Amount 110 Levetiracetam 1,000 mg In 110 Sodium Chloride 0.9% 100 ml @ 400 mls/hr IV Q12HR [facility] Rx#:[id number] Output: Urine 3 Other: # Voids 4 # Bowel Movements 0 Stool Characteristics Soft Formed Brown Minor Weight Source Bedscale Bedscale Active Medications: Current Medications Acetaminophen (Tylenol) 650 mg PO Q6H PRN PRN Reason: Pain or Fever >101 Stop: 07/29/18 13:03 Acetaminophen (Tylenol 650mg Supp) 650 mg RC Q6H PRN PRN Reason: Pain or Fever >101 Stop: 07/29/18 15:30 Al Hydrox/Mg Hydrox/Simethicone (Maalox) 30 ml PO Q6H PRN PRN Reason: ABDOMINAL DISTRESS Last Admin: 05/30/18 12:10 Dose: 30 ml Aspirin (Aspirin Chewable) 81 mg PO DAILY [facility] Stop: 07/25/18 08:59 Last Admin: 05/30/18 11:26 Dose: Not Given Docusate Sodium (Colace) 250 mg PO DAILY [facility] Stop: 07/25/18 08:59 Last Admin: 05/30/18 11:26 Dose: Not Given Enoxaparin Sodium (Lovenox) 40 mg SUBQ DAILY [facility] Stop: 07/26/18 09:14 Last Admin: 05/30/18 15:47 Dose: Not Given Levetiracetam 1,000 mg/ Sodium (Chloride) 110 mls @ 400 mls/hr IV Q12HR [facility] Stop: 07/24/18 17:44 Last Admin: 05/30/18 10:20 Dose: 400 mls/hr Potassium Chloride/Dextrose/Sod Cl (D5-0.45ns W/20 Meq Kcl) 1,000 mls @ 100 mls /hr IV .Q10H [facility] Stop: 07/29/18 20:08 Last Admin: 05/30/18 20:43 Dose: 100 mls/hr Piperacillin Sod/Tazobactam (Sod 3.375 gm/ Sodium Chloride) 50 mls @ 100 mls/ hr IV Q6HR [facility] Stop: 07/29/18 21:59 Metronidazole (Flagyl) 500 mg in 100 mls @ 100 mls/hr IV Q8HR [facility] Stop: 07/29/18 20:59 Magnesium Hydroxide (Milk Of Magnesia) 30 ml PO HS PRN PRN Reason: Constipation Stop: 07/24/18 20:17 Olanzapine (Zyprexa) 5 mg PO HS [facility]; Protocol Stop: 07/24/18 20:59 Last Admin: 05/29/18 22:21 Dose: 5 mg Ondansetron HCl (Zofran) 4 mg IV Q4H PRN PRN Reason: Nausea / Vomiting Stop: 07/29/18 13:04 Last Admin: 05/30/18 13:17 Dose: 4 mg Pantoprazole Sodium (Protonix) 40 mg IVP BID [facility] Stop: 07/29/18 16:59 Last Admin: 05/30/18 16:52 Dose: 40 mg General: demented HEENT: NC/AT, PERRLA, anicteric sclerae, throat clear Neck: Supple, No thyromegaly, +2 carotid pulse wo bruit, No LAD Lungs: CTAB Cardiovascular: RRR, Normal S1, Normal S2, without murmur Abdomen: soft, non-tender, non-distended Neurological: no change - Procedures Procedures: Procedures Procedure Code Date GROUP PSYCHOTHERAPY 25840 08/19/15 GROUP PSYCHOTHERAPY GZHZZZZ 08/19/15 Internal Medicine Assmt/Plan - Assessment Assessment: 1.STATUS EPILEPTICUS. 2.CVA 3.INTRACTABLE NAUSEA AND VOMITING. 4.SEPSIS. - Plan Plan: CONTINUE ON CURRENT MEDICATION AND DIET.IV FLUID WITH D51/2 NSAT 100 CC PER HOUR.IV ABS.AND GI CONSULTATION.ABDOMINAL US IS ORDERED. Nutritional Asmnt/Malnutr-PDOC - Dietary Evaluation Malnutrition Findings (Please click <Entered> for more info): Nutritional Asmnt/Malnutrition Start: 05/30/18 17: 52 Text: Status: Complete Freq: Protocol: Document 05/30/18 17:52 LCHENG (Rec: 05/30/18 18:03 LCHENG [id number]) Nutritional Asmnt/Malnutrition Patient General Information Nutritional Screening Moderate Risk Diagnosis uncontrolled seizures Pertinent Medical Hx/Surgical Hx CVA, seizure disorder, dementia Subjective Information Pt seen lying in bed at time of vist, not willing to talk. Per nurse, pt had large amount of coffee ground emesis this morning and fever. Per EMR, PO intake 50-100%, good appetite per nurse note. Current Diet Order/ Nutrition Support [facility] soft chopped Pertinent Medications colace, levetiracetam, zofran, protonix Pertinent Labs 05/29 Cr 0.4 Nutritional Hx/Data Height 1.7 m Height (Calculated Centimeters) 170.2 Current Weight (lbs) 63.503 kg Weight (Calculated Kilograms) 63.5 Weight (Calculated Grams) 01075.9 [place] Body Weight 148 Body Mass Index (BMI) 21.9 Weight Status Approriate GI Symptoms GI Symptoms None Last BM 05/29 Difficult in: None Skin Integrity/Comment: intact Current %PO Good (75-100%) Estimated Nutritional Goals BEE in Kcals: Using Current wt Calories/Kcals/Kg 25-30 Kcals Calculated 7958-2423 Protein: Using Current wt Protein g/k Protein Calculated 64 Fluid: ml 1600-1920ml (1ml/kcal) Nutritional Problem No current Nutrition Prob Problem N/A Malnutrition Alert Is there a minimum of two criteria No selected? Query Text:Check all the applicable criteria. A minimum of two criteria are recommended for diagnosis of either severe or non-severe malnutrition. Malnutrition Related to Morbid Obesity Malnutrition related to morbid obesity No Intervention/Recommendation Comments 1. Continue with current diet as ordered. 2. Monitor PO intake, wt, GI symptoms, labs and skin integrity 3. F/U as high risk in 2-3 days, 06/01-06/02 Expected Outcomes/Goals Expected Outcomes/Goals 1. PO intake to meet at least 75% of nutritional needs. 2. Wt stability, skin to remain intact, labs to approach WNL.
[2018-05-30] MEDS: metroNIDAZOLE 500mg/NS 100mL 500 MG/100 ML BAG IV SCH (22:02)
[2018-05-30] MEDS ORDERED: Piperacillin Sodium/Tazobact 3.375 gm Vial IV ONE ×2 (22:07→22:20)
[2018-05-30] MEDS ORDERED: Levetiracetam 500 mg/5mL 5mL Vial IV ONE (22:20)
[2018-05-31] MEDS: metroNIDAZOLE 500mg/NS 100mL 500 MG/100 ML BAG IV SCH ×3 (04:35→20:39)
[2018-05-31 06:36] LABS: % BASOPHILS 0.1 % (0.0-2.0); % EOSINOPHILS 0.9 % (0.0-5.0); % LYMPHOCYTES 14.5 % (20.0-50.0); % MONOCYTES 9.9 % (2.0-10.0); % NEUTROPHILS 74.6 % (40.0-80.0); EOSINOPHILE ABSOLUTE 0.1 Th/cmm (0.1-0.4); HEMATOCRIT 38.8 % (41.0-60); HEMOGLOBIN 13.2 gm/dL (12-16); LYMPHOCYTE ABSOLUTE 1.5 Th/cmm (1.5-3.0); MEAN CELL VOLUME 89.1 fl (80-99); MEAN CORPUSCULAR HEMOGLOBIN 30.3 pg (26.0-30.0); MEAN PLATELET VOLUME 7.9 fl; NEUTROPHILE ABSOLUTE 7.8 Th/cmm (1.8-8.0); PLATELET COUNT 273 Th/cmm (150-400); RED BLOOD COUNT 4.35 Mil/cmm (4.30-5.70); RED CELL DISTRIBUTION WIDTH 13.1 % (11.5-20.0); WHITE BLOOD COUNT 10.4 Th/cmm (4.8-10.8)
[2018-05-31 06:57] LABS: ALB/GLOB RATIO 1.2 (1.0-1.8); ALBUMIN 3.1 gm/dL (4.2-5.5); ALKALINE PHOSPHATASE 54 U/L (34-104); ANION GAP 9.4 (7.0-16.0); BILIRUBIN,TOTAL 0.5 mg/dL (0.3-1.0); BUN - UREA NITROGEN 25 mg/dL (7-25); CALCIUM SERUM 8.7 mg/dL (8.6-10.3); CARBON DIOXIDE 24.6 mEq/L (21.0-31.0); CHLORIDE 110 mEq/L (98-107); CREATININE - SERUM 0.6 mg/dL (0.7-1.3); GFR AFRICAN-AMERICAN > 60.0 ml/min (>90); GFR NON AFRICAN-AMERICAN > 60.0 ml/min; GLUCOSE 99 mg/dL (70-105); SGOT 16 U/L (13-39); SGPT/ALT 11 U/L (7-52); SODIUM SERUM 140 mEq/L (136-145); TOTAL PROTEIN,SERUM 5.7 gm/dL (6.0-8.3)
[2018-05-31 07:30] LABS: INR 1.12 (0.5-1.4); PROTHROMBIN TIME (TEST) 11.5 SECONDS (9.5-11.5)
[2018-05-31] MEDS: Aspirin 81mg Chewable Tab PO SCH (08:36)
[2018-05-31] MEDS: Multivitamin w/ Minerals Tab PO SCH (08:37)
[2018-05-31] MEDS: Enoxaparin 40 mg/0.4 mL 0.4mL Syr SUBQ SCH (08:37)
[2018-05-31] MEDS: D5-0.45NS w/20 mEq KCL 1,000 ML IV SCH ×2 (11:05→22:13)
--- NOTE | 2018-05-31 14:30 | Diagnostic Imaging Report ---
Abdominal ultrasound HISTORY: Hematemesis, pain Exam is extremely limited due to bowel gas and difficulty in patient positioning. Suboptimal delineation of the entire liver. The liver appears to be somewhat enlarged. No obvious focal lesions. Limited views of the gallbladder. No obvious intraluminal abnormalities. Strictly, no obvious calculi. No definite biliary dilatation. The pancreas cannot be seen due to bowel gas. Kidneys appear normal bilaterally. The spleen is normal in size. No other obvious retroperitoneal or intra-abdominal abnormalities. IMPRESSION: 1. Limited exam with no definite abnormalities.
--- NOTE | 2018-05-31 14:42 | GI Progress Note ---
Subjective - Review of Systems Subjective: NO GI BLEEDING NO CONSENT FOR EGD Objective - Results Result Diagrams: 05/31/18 06:25 05/31/18 06:25 Recent Labs: Laboratory Last Values WBC 10.4 Th/cmm (4.8-10.8) 05/31/18 06:25 RBC 4.35 Mil/cmm (4.30-5.70) 05/31/18 06:25 Hgb 13.2 gm/dL (12-16) 05/31/18 06:25 Hct 38.8 % (41.0-60) L 05/31/18 06:25 MCV 89.1 fl (80-99) 05/31/18 06:25 MCH 30.3 pg (26.0-30.0) H 05/31/18 06:25 MCHC Differential 34.0 pg (28.0-36.0) 05/31/18 06:25 RDW 13.1 % (11.5-20.0) 05/31/18 06:25 Plt Count 273 Th/cmm (150-400) 05/31/18 06:25 MPV 7.9 fl 05/31/18 06:25 Neutrophils % 74.6 % (40.0-80.0) 05/31/18 06:25 Lymphocytes % 14.5 % (20.0-50.0) L 05/31/18 06:25 Monocytes % 9.9 % (2.0-10.0) 05/31/18 06:25 Eosinophils % 0.9 % (0.0-5.0) 05/31/18 06:25 Basophils % 0.1 % (0.0-2.0) 05/31/18 06:25 PT 11.5 SECONDS (9.5-11.5) 05/31/18 06:25 INR 1.12 (0.5-1.4) 05/31/18 06:25 Sodium 140 mEq/L (136-145) 05/31/18 06:25 Potassium 4.0 mEq/L (3.5-5.1) 05/31/18 06:25 Chloride 110 mEq/L (98-107) H 05/31/18 06:25 Carbon Dioxide 24.6 mEq/L (21.0-31.0) 05/31/18 06:25 Anion Gap 9.4 (7.0-16.0) 05/31/18 06:25 BUN 25 mg/dL (7-25) 05/31/18 06:25 Creatinine 0.6 mg/dL (0.7-1.3) L 05/31/18 06:25 Est GFR ( Amer) > 60.0 ml/min (>90) 05/31/18 06:25 Est GFR (Non-Af Amer) > 60.0 ml/min 05/31/18 06:25 BUN/Creatinine Ratio 41.7 05/31/18 06:25 Glucose 99 mg/dL (70-105) 05/31/18 06:25 Calcium 8.7 mg/dL (8.6-10.3) 05/31/18 06:25 Phosphorus 3.6 mg/dL (2.5-5.0) 05/25/18 17:21 Magnesium 2.0 mg/dL (1.9-2.7) 05/31/18 06:25 Total Bilirubin 0.5 mg/dL (0.3-1.0) 05/31/18 06:25 AST 16 U/L (13-39) 05/31/18 06:25 ALT 11 U/L (7-52) 05/31/18 06:25 Alkaline Phosphatase 54 U/L (34-104) 05/31/18 06:25 Total Protein 5.7 gm/dL (6.0-8.3) L 05/31/18 06:25 Albumin 3.1 gm/dL (4.2-5.5) L 05/31/18 06:25 Globulin 2.6 gm/dL 05/31/18 06:25 Albumin/Globulin Ratio 1.2 (1.0-1.8) 05/31/18 06:25 Urine Source CATH 05/25/18 19:03 Urine Color YELLOW 05/25/18 19:03 Urine Clarity CLEAR (CLEAR) 05/25/18 19:03 Urine pH 6.0 (4.6 - 8.0) 05/25/18 19:03 Ur Specific [place] 1.020 (1.005-1.030) 05/25/18 19:03 Urine Protein NEGATIVE mg/dL (NEGATIVE) 05/25/18 19:03 Urine Glucose (UA) NEGATIVE mg/dL (NEGATIVE) 05/25/18 19:03 Urine Ketones NEGATIVE mg/dL (NEGATIVE) 05/25/18 19:03 Urine Blood TRACE (NEGATIVE) 05/25/18 19:03 Urine Nitrate NEGATIVE (NEGATIVE) 05/25/18 19:03 Urine Bilirubin NEGATIVE (NEGATIVE) 05/25/18 19:03 Urine Urobilinogen 0.2 E.U./dL (0.2 - 1.0) 05/25/18 19:03 Ur Leukocyte Esterase NEGATIVE (NEGATIVE) 05/25/18 19:03 Urine RBC 2-5 /hpf (0-5) H 05/25/18 19:03 Urine WBC 0-2 /hpf (0-5) 05/25/18 19:03 Ur Epithelial Cells FEW /lpf (FEW) 05/25/18 19:03 Urine Bacteria FEW /hpf (NONE SEEN) 05/25/18 19:03 Urine Mucus FEW /lpf (FEW) 05/25/18 19:03 Urine Opiates Screen NEGATIVE (NEGATIVE) 05/25/18 19:03 Urine Methadone Screen NEGATIVE (NEGATIVE) 05/25/18 19:03 Ur Barbiturates Screen NEGATIVE (NEGATIVE) 05/25/18 19:03 Ur Tricyclics Screen NEGATIVE (NEGATIVE) 05/25/18 19:03 Ur Phencyclidine Scrn NEGATIVE (NEGATIVE) 05/25/18 19:03 Amphetamines Screen NEGATIVE (NEGATIVE) 05/25/18 19:03 U Methamphetamines Scrn NEGATIVE (NEGATIVE) 05/25/18 19:03 U Benzodiazepines Scrn NEGATIVE (NEGATIVE) 05/25/18 19:03 U Cocaine Metab Screen NEGATIVE (NEGATIVE) 05/25/18 19:03 U Cannabinoids Screen NEGATIVE (NEGATIVE) 05/25/18 19:03 - Physical Exam Vitals and I&O: Vital Signs Temp 98.1 F 05/31/18 11:50 Pulse 82 05/31/18 11:50 Resp 18 05/31/18 11:50 BP 91/60 05/31/18 11:50 Pulse Ox 99 05/31/18 11:50 Intake & Output 05/30/18 05/31/18 05/31/18 18:59 06:59 18:59 Intake Total 1407.5 50 Output Total 3 Balance -3 1407.5 50 Weight (lbs) 63.049 kg 64.58 kg Intake: Intake, IV Amount 1407.5 50 D5-0.45NS w/20 mEq KCL 1, 1000 000 ml @ 100 mls/hr IV . Q10H [facility] Rx#:[id number] Levetiracetam 750 mg In 107.5 Sodium Chloride 0.9% 100 ml @ 400 mls/hr IV Q12HR [facility] Rx#:[id number] Piperacillin Sodium/ 100 50 Tazobact 3.375 gm In Sodium Chloride 0.9% 50 ml @ 100 mls/hr IV Q6HR [facility] Rx#:[id number] metroNIDAZOLE 500mg/NS 200 100mL 500 mg In 100 ml @ 100 mls/hr IV Q8HR [facility] Rx #:[id number] Output: Urine 3 Other: # Voids 2 # Bowel Movements 0 0 Weight Source Bedscale Bedscale Active Medications: Current Medications Acetaminophen (Tylenol) 650 mg PO Q6H PRN PRN Reason: Pain or Fever >101 Stop: 07/29/18 13:03 Acetaminophen (Tylenol 650mg Supp) 650 mg RC Q6H PRN PRN Reason: Pain or Fever >101 Stop: 07/29/18 15:30 Last Admin: 05/30/18 20:58 Dose: 650 mg Al Hydrox/Mg Hydrox/Simethicone (Maalox) 30 ml PO Q6H PRN PRN Reason: ABDOMINAL DISTRESS Last Admin: 05/30/18 12:10 Dose: 30 ml Aspirin (Aspirin Chewable) 81 mg PO DAILY [facility] Stop: 07/25/18 08:59 Last Admin: 05/31/18 08:36 Dose: Not Given Docusate Sodium (Colace) 250 mg PO DAILY [facility] Stop: 07/25/18 08:59 Last Admin: 05/31/18 08:36 Dose: Not Given Enoxaparin Sodium (Lovenox) 40 mg SUBQ DAILY [facility] Stop: 07/26/18 09:14 Last Admin: 05/31/18 08:37 Dose: Not Given Potassium Chloride/Dextrose/Sod Cl (D5-0.45ns W/20 Meq Kcl) 1,000 mls @ 100 mls /hr IV .Q10H [facility] Stop: 07/29/18 20:08 Last Admin: 05/31/18 11:05 Dose: 100 mls/hr Piperacillin Sod/Tazobactam (Sod 3.375 gm/ Sodium Chloride) 50 mls @ 100 mls/ hr IV Q6HR [facility] Stop: 07/29/18 21:59 Last Infusion: 05/31/18 12:00 Dose: Infused Metronidazole (Flagyl) 500 mg in 100 mls @ 100 mls/hr IV Q8HR [facility] Stop: 07/29/18 20:59 Last Admin: 05/31/18 12:31 Dose: 100 mls/hr Levetiracetam 750 mg/ Sodium (Chloride) 107.5 mls @ 400 mls/hr IV Q12HR [facility] Stop: 07/29/18 21:59 Last Admin: 05/31/18 09:04 Dose: 400 mls/hr Magnesium Hydroxide (Milk Of Magnesia) 30 ml PO HS PRN PRN Reason: Constipation Stop: 07/24/18 20:17 Olanzapine (Zyprexa) 5 mg PO HS [facility]; Protocol Stop: 07/24/18 20:59 Last Admin: 05/30/18 21:56 Dose: Not Given Ondansetron HCl (Zofran) 4 mg IV Q4H PRN PRN Reason: Nausea / Vomiting Stop: 07/29/18 13:04 Last Admin: 05/30/18 20:54 Dose: 4 mg Pantoprazole Sodium (Protonix) 40 mg IVP BID [facility] Stop: 07/29/18 16:59 Last Admin: 05/31/18 09:04 Dose: 40 mg General: Alert, No acute distress HEENT: Atraumatic, PERRLA Neck: Supple, JVD Cardiovascular: Regular rate, Normal S1, Normal S2 Lungs: Clear to auscultation Abdomen: Bowel sounds, Soft - Procedures Procedures: Procedures Procedure Code Date GROUP PSYCHOTHERAPY 69754 08/19/15 GROUP PSYCHOTHERAPY [id number] 08/19/15 Assessment/Plan - Problem List Patient Problems: All Active Problems POSSIBLE SEIZURE ACTIVITY (Acute) - Assessment Assessment: 58 YO MALE WITH UGI BLEED SEEMS RESOLVED HGB NORMAL NO CONSENT FOR EGD 1.UGI SERIES ALT TO EGD 2.FOLLOW H/H 3.PROTONIX
[2018-05-31] MEDS ORDERED: Diatrizoate Meglumine/Diatri 30 mL Sol PO ONE (14:43)
--- NOTE | 2018-05-31 20:29 | Internal Medicine Prog Note ---
Internal Medicine Subjective - Subjective Service Date: 05/31/18 Patient seen and examined:: with staff (HE DID NOT HAVE HIS EGD DONE.FEEDING WAS RESUMED.) Patient is:: awake, verbal, in bed, confused Per staff patient has:: no adverse event Internal Medicine Objective - Results Result Diagrams: 05/31/18 06:25 05/31/18 06:25 Recent Labs: Laboratory Last Values WBC 10.4 Th/cmm (4.8-10.8) 05/31/18 06:25 RBC 4.35 Mil/cmm (4.30-5.70) 05/31/18 06:25 Hgb 13.2 gm/dL (12-16) 05/31/18 06:25 Hct 38.8 % (41.0-60) L 05/31/18 06:25 MCV 89.1 fl (80-99) 05/31/18 06:25 MCH 30.3 pg (26.0-30.0) H 05/31/18 06:25 MCHC Differential 34.0 pg (28.0-36.0) 05/31/18 06:25 RDW 13.1 % (11.5-20.0) 05/31/18 06:25 Plt Count 273 Th/cmm (150-400) 05/31/18 06:25 MPV 7.9 fl 05/31/18 06:25 Neutrophils % 74.6 % (40.0-80.0) 05/31/18 06:25 Lymphocytes % 14.5 % (20.0-50.0) L 05/31/18 06:25 Monocytes % 9.9 % (2.0-10.0) 05/31/18 06:25 Eosinophils % 0.9 % (0.0-5.0) 05/31/18 06:25 Basophils % 0.1 % (0.0-2.0) 05/31/18 06:25 PT 11.5 SECONDS (9.5-11.5) 05/31/18 06:25 INR 1.12 (0.5-1.4) 05/31/18 06:25 Sodium 140 mEq/L (136-145) 05/31/18 06:25 Potassium 4.0 mEq/L (3.5-5.1) 05/31/18 06:25 Chloride 110 mEq/L (98-107) H 05/31/18 06:25 Carbon Dioxide 24.6 mEq/L (21.0-31.0) 05/31/18 06:25 Anion Gap 9.4 (7.0-16.0) 05/31/18 06:25 BUN 25 mg/dL (7-25) 05/31/18 06:25 Creatinine 0.6 mg/dL (0.7-1.3) L 05/31/18 06:25 Est GFR ( Amer) > 60.0 ml/min (>90) 05/31/18 06:25 Est GFR (Non-Af Amer) > 60.0 ml/min 05/31/18 06:25 BUN/Creatinine Ratio 41.7 05/31/18 06:25 Glucose 99 mg/dL (70-105) 05/31/18 06:25 Calcium 8.7 mg/dL (8.6-10.3) 05/31/18 06:25 Phosphorus 3.6 mg/dL (2.5-5.0) 05/25/18 17:21 Magnesium 2.0 mg/dL (1.9-2.7) 05/31/18 06:25 Total Bilirubin 0.5 mg/dL (0.3-1.0) 05/31/18 06:25 AST 16 U/L (13-39) 05/31/18 06:25 ALT 11 U/L (7-52) 05/31/18 06:25 Alkaline Phosphatase 54 U/L (34-104) 05/31/18 06:25 Total Protein 5.7 gm/dL (6.0-8.3) L 05/31/18 06:25 Albumin 3.1 gm/dL (4.2-5.5) L 05/31/18 06:25 Globulin 2.6 gm/dL 05/31/18 06:25 Albumin/Globulin Ratio 1.2 (1.0-1.8) 05/31/18 06:25 Urine Source CATH 05/25/18 19:03 Urine Color YELLOW 05/25/18 19:03 Urine Clarity CLEAR (CLEAR) 05/25/18 19:03 Urine pH 6.0 (4.6 - 8.0) 05/25/18 19:03 Ur Specific [place] 1.020 (1.005-1.030) 05/25/18 19:03 Urine Protein NEGATIVE mg/dL (NEGATIVE) 05/25/18 19:03 Urine Glucose (UA) NEGATIVE mg/dL (NEGATIVE) 05/25/18 19:03 Urine Ketones NEGATIVE mg/dL (NEGATIVE) 05/25/18 19:03 Urine Blood TRACE (NEGATIVE) 05/25/18 19:03 Urine Nitrate NEGATIVE (NEGATIVE) 05/25/18 19:03 Urine Bilirubin NEGATIVE (NEGATIVE) 05/25/18 19:03 Urine Urobilinogen 0.2 E.U./dL (0.2 - 1.0) 05/25/18 19:03 Ur Leukocyte Esterase NEGATIVE (NEGATIVE) 05/25/18 19:03 Urine RBC 2-5 /hpf (0-5) H 05/25/18 19:03 Urine WBC 0-2 /hpf (0-5) 05/25/18 19:03 Ur Epithelial Cells FEW /lpf (FEW) 05/25/18 19:03 Urine Bacteria FEW /hpf (NONE SEEN) 05/25/18 19:03 Urine Mucus FEW /lpf (FEW) 05/25/18 19:03 Urine Opiates Screen NEGATIVE (NEGATIVE) 05/25/18 19:03 Urine Methadone Screen NEGATIVE (NEGATIVE) 05/25/18 19:03 Ur Barbiturates Screen NEGATIVE (NEGATIVE) 05/25/18 19:03 Ur Tricyclics Screen NEGATIVE (NEGATIVE) 05/25/18 19:03 Ur Phencyclidine Scrn NEGATIVE (NEGATIVE) 05/25/18 19:03 Amphetamines Screen NEGATIVE (NEGATIVE) 05/25/18 19:03 U Methamphetamines Scrn NEGATIVE (NEGATIVE) 05/25/18 19:03 U Benzodiazepines Scrn NEGATIVE (NEGATIVE) 05/25/18 19:03 U Cocaine Metab Screen NEGATIVE (NEGATIVE) 05/25/18 19:03 U Cannabinoids Screen NEGATIVE (NEGATIVE) 05/25/18 19:03 - Physical Exam Vitals and I&O: Vital Signs Temp 97.2 F 05/31/18 15:52 Pulse 63 05/31/18 15:52 Resp 18 05/31/18 18:00 BP 95/60 05/31/18 15:52 Pulse Ox 98 05/31/18 15:52 Intake & Output 05/31/18 05/31/18 06/01/18 06:59 18:59 06:59 Intake Total 1407.5 657.5 Balance 1407.5 657.5 Weight (lbs) 64.58 kg 64.41 kg Intake: Intake, IV Amount 1407.5 307.5 D5-0.45NS w/20 mEq KCL 1, 1000 000 ml @ 100 mls/hr IV . Q10H [facility] Rx#:[id number] Levetiracetam 750 mg In 107.5 107.5 Sodium Chloride 0.9% 100 ml @ 400 mls/hr IV Q12HR [facility] Rx#:[id number] Piperacillin Sodium/ 100 100 Tazobact 3.375 gm In Sodium Chloride 0.9% 50 ml @ 100 mls/hr IV Q6HR [facility] Rx#:[id number] metroNIDAZOLE 500mg/NS 200 100 100mL 500 mg In 100 ml @ 100 mls/hr IV Q8HR [facility] Rx #:[id number] Oral 350 Other: # Voids 2 3 # Bowel Movements 0 Weight Source Bedscale Bedscale Active Medications: Current Medications Acetaminophen (Tylenol) 650 mg PO Q6H PRN PRN Reason: Pain or Fever >101 Stop: 07/29/18 13:03 Acetaminophen (Tylenol 650mg Supp) 650 mg RC Q6H PRN PRN Reason: Pain or Fever >101 Stop: 07/29/18 15:30 Last Admin: 05/30/18 20:58 Dose: 650 mg Al Hydrox/Mg Hydrox/Simethicone (Maalox) 30 ml PO Q6H PRN PRN Reason: ABDOMINAL DISTRESS Last Admin: 05/30/18 12:10 Dose: 30 ml Aspirin (Aspirin Chewable) 81 mg PO DAILY [facility] Stop: 07/25/18 08:59 Last Admin: 05/31/18 08:36 Dose: Not Given Docusate Sodium (Colace) 250 mg PO DAILY [facility] Stop: 07/25/18 08:59 Last Admin: 05/31/18 08:36 Dose: Not Given Enoxaparin Sodium (Lovenox) 40 mg SUBQ DAILY [facility] Stop: 07/26/18 09:14 Last Admin: 05/31/18 08:37 Dose: Not Given Potassium Chloride/Dextrose/Sod Cl (D5-0.45ns W/20 Meq Kcl) 1,000 mls @ 100 mls /hr IV .Q10H [facility] Stop: 07/29/18 20:08 Last Admin: 05/31/18 11:05 Dose: 100 mls/hr Piperacillin Sod/Tazobactam (Sod 3.375 gm/ Sodium Chloride) 50 mls @ 100 mls/ hr IV Q6HR [facility] Stop: 07/29/18 21:59 Last Infusion: 05/31/18 17:35 Dose: Infused Metronidazole (Flagyl) 500 mg in 100 mls @ 100 mls/hr IV Q8HR [facility] Stop: 07/29/18 20:59 Last Infusion: 05/31/18 13:31 Dose: Infused Levetiracetam 750 mg/ Sodium (Chloride) 107.5 mls @ 400 mls/hr IV Q12HR [facility] Stop: 07/29/18 21:59 Last Infusion: 05/31/18 09:25 Dose: Infused Magnesium Hydroxide (Milk Of Magnesia) 30 ml PO HS PRN PRN Reason: Constipation Stop: 07/24/18 20:17 Olanzapine (Zyprexa) 5 mg PO HS [facility]; Protocol Stop: 07/24/18 20:59 Last Admin: 05/30/18 21:56 Dose: Not Given Ondansetron HCl (Zofran) 4 mg IV Q4H PRN PRN Reason: Nausea / Vomiting Stop: 07/29/18 13:04 Last Admin: 05/30/18 20:54 Dose: 4 mg Pantoprazole Sodium (Protonix) 40 mg IVP BID [facility] Stop: 07/29/18 16:59 Last Admin: 05/31/18 17:08 Dose: 40 mg General: demented HEENT: NC/AT, PERRLA, anicteric sclerae, throat clear Neck: Supple, No thyromegaly, +2 carotid pulse wo bruit, No LAD Lungs: CTAB Cardiovascular: RRR, Normal S1, Normal S2, without murmur Abdomen: soft, non-tender, non-distended Neurological: no change - Procedures Procedures: Procedures Procedure Code Date GROUP PSYCHOTHERAPY 30613 08/19/15 GROUP PSYCHOTHERAPY GZHZZZZ 08/19/15 Internal Medicine Assmt/Plan - Assessment Assessment: 1.STATUS EPILEPTICUS. 2.CVA 3.INTRACTABLE NAUSEA AND VOMITING. 4.SEPSIS. - Plan Plan: CONTINUE ON CURRENT MEDICATION AND DIET.CBC AND CMP IN AM. Nutritional Asmnt/Malnutr-PDOC - Dietary Evaluation Malnutrition Findings (Please click <Entered> for more info): Nutritional Asmnt/Malnutrition Start: 05/30/18 17: 52 Text: Status: Complete Freq: Protocol: Document 05/30/18 17:52 TENA (Rec: 05/30/18 18:03 TENA [id number]) Nutritional Asmnt/Malnutrition Patient General Information Nutritional Screening Moderate Risk Diagnosis uncontrolled seizures Pertinent Medical Hx/Surgical Hx CVA, seizure disorder, dementia Subjective Information Pt seen lying in bed at time of vist, not willing to talk. Per nurse, pt had large amount of coffee ground emesis this morning and fever. Per EMR, PO intake 50-100%, good appetite per nurse note. Current Diet Order/ Nutrition Support [facility] soft chopped Pertinent Medications colace, levetiracetam, zofran, protonix Pertinent Labs 05/29 Cr 0.4 Nutritional Hx/Data Height 1.7 m Height (Calculated Centimeters) 170.2 Current Weight (lbs) 63.503 kg Weight (Calculated Kilograms) 63.5 Weight (Calculated Grams) 95395.9 [place] Body Weight 148 Body Mass Index (BMI) 21.9 Weight Status Approriate GI Symptoms GI Symptoms None Last BM 05/29 Difficult in: None Skin Integrity/Comment: intact Current %PO Good (75-100%) Estimated Nutritional Goals BEE in Kcals: Using Current wt Calories/Kcals/Kg 25-30 Kcals Calculated 3142-6755 Protein: Using Current wt Protein g/k Protein Calculated 64 Fluid: ml 1600-1920ml (1ml/kcal) Nutritional Problem No current Nutrition Prob Problem N/A Malnutrition Alert Is there a minimum of two criteria No selected? Query Text:Check all the applicable criteria. A minimum of two criteria are recommended for diagnosis of either severe or non-severe malnutrition. Malnutrition Related to Morbid Obesity Malnutrition related to morbid obesity No Intervention/Recommendation Comments 1. Continue with current diet as ordered. 2. Monitor PO intake, wt, GI symptoms, labs and skin integrity 3. F/U as high risk in 2-3 days, 06/01-06/02 Expected Outcomes/Goals Expected Outcomes/Goals 1. PO intake to meet at least 75% of nutritional needs. 2. Wt stability, skin to remain intact, labs to approach WNL.
[2018-06-01] MEDS: metroNIDAZOLE 500mg/NS 100mL 500 MG/100 ML BAG IV SCH ×2 (04:39→12:30)
[2018-06-01 07:42] LABS: % BASOPHILS 0.1 % (0.0-2.0); % EOSINOPHILS 4.8 % (0.0-5.0); % MONOCYTES 9.2 % (2.0-10.0); % NEUTROPHILS 62.9 % (40.0-80.0); EOSINOPHILE ABSOLUTE 0.3 Th/cmm (0.1-0.4); HEMOGLOBIN 10.6 gm/dL (12-16); LYMPHOCYTE ABSOLUTE 1.3 Th/cmm (1.5-3.0); MEAN CELL VOLUME 89.5 fl (80-99); MEAN CORPUSCULAR HEMOGLOBIN 29.7 pg (26.0-30.0); MEAN CORPUSCULAR HGB CONC 33.1 pg (28.0-36.0); MEAN PLATELET VOLUME 8.1 fl; MONOCYTE ABSOLUTE 0.5 Th/cmm (0.3-1.0); NEUTROPHILE ABSOLUTE 3.4 Th/cmm (1.8-8.0); PLATELET COUNT 234 Th/cmm (150-400); RED BLOOD COUNT 3.58 Mil/cmm (4.30-5.70); RED CELL DISTRIBUTION WIDTH 13.2 % (11.5-20.0); WHITE BLOOD COUNT 5.5 Th/cmm (4.8-10.8)
--- NOTE | 2018-06-01 07:44 | Diagnostic Imaging Report ---
Upper GI series, Limited History: GI bleeding Comparison: None Technique/procedure: Exam is limited based on the static images provided. Patient Carrier view demonstrates tortuous aorta. No focal consolidation identified. Old compression deformity of T12 is noted. Scoliosis is noted. There is passage of oral contrast from the esophagus into the stomach. Assessment for focal lesions is nondiagnostic on this exam. There is significant stool throughout the colon with distal fecal impaction. Gas-filled loops of bowel are also noted. IMPRESSION: Severely limited exam based on the static images provided. There is passage of oral contrast from the esophagus to the stomach. Exam was limited as delayed images are not obtained. There is significant stool throughout the colon with distal fecal impaction.
[2018-06-01 08:54] LABS: ALB/GLOB RATIO 1.2 (1.0-1.8); ALBUMIN 2.7 gm/dL (4.2-5.5); ALKALINE PHOSPHATASE 42 U/L (34-104); ANION GAP 8.3 (7.0-16.0); BILIRUBIN,TOTAL 0.4 mg/dL (0.3-1.0); BUN - UREA NITROGEN 19 mg/dL (7-25); CALCIUM SERUM 8.5 mg/dL (8.6-10.3); CARBON DIOXIDE 25.6 mEq/L (21.0-31.0); CHLORIDE 109 mEq/L (98-107); CREATININE - SERUM 0.7 mg/dL (0.7-1.3); GFR AFRICAN-AMERICAN > 60.0 ml/min (>90); GFR NON AFRICAN-AMERICAN > 60.0 ml/min; GLUCOSE 95 mg/dL (70-105); POTASSIUM SERUM 3.9 mEq/L (3.5-5.1); SGOT 14 U/L (13-39); SGPT/ALT 8 U/L (7-52); SODIUM SERUM 139 mEq/L (136-145); TOTAL PROTEIN,SERUM 4.9 gm/dL (6.0-8.3)
[2018-06-01] MEDS: Multivitamin w/ Minerals Tab PO SCH (09:18)
[2018-06-01] MEDS: Aspirin 81mg Chewable Tab PO SCH (09:18)
[2018-06-01] MEDS: Enoxaparin 40 mg/0.4 mL 0.4mL Syr SUBQ SCH (09:18)
[2018-06-01] MEDS ORDERED: Probiotic Screen MC PRN (11:05)
[2018-06-01] MEDS ORDERED: Magnesium Citrate 1.75 GM/300 mL Bottle GT ONE (11:22)
[2018-06-01] MEDS ORDERED: Magnesium Citrate 1.75 GM/300 mL Bottle PO ONE (11:22)
--- NOTE | 2018-06-01 11:33 | GI Progress Note ---
Subjective - Review of Systems Subjective: NO GI BLEEDING NO CONSENT FOR EGD Objective - Results Result Diagrams: 06/01/18 07:30 06/01/18 07:30 Recent Labs: Laboratory Last Values WBC 5.5 Th/cmm (4.8-10.8) 06/01/18 07:30 RBC 3.58 Mil/cmm (4.30-5.70) L 06/01/18 07:30 Hgb 10.6 gm/dL (12-16) L 06/01/18 07:30 Hct 32.0 % (41.0-60) L 06/01/18 07:30 MCV 89.5 fl (80-99) 06/01/18 07:30 MCH 29.7 pg (26.0-30.0) 06/01/18 07:30 MCHC Differential 33.1 pg (28.0-36.0) 06/01/18 07:30 RDW 13.2 % (11.5-20.0) 06/01/18 07:30 Plt Count 234 Th/cmm (150-400) 06/01/18 07:30 MPV 8.1 fl 06/01/18 07:30 Neutrophils % 62.9 % (40.0-80.0) 06/01/18 07:30 Lymphocytes % 23.0 % (20.0-50.0) 06/01/18 07:30 Monocytes % 9.2 % (2.0-10.0) 06/01/18 07:30 Eosinophils % 4.8 % (0.0-5.0) 06/01/18 07:30 Basophils % 0.1 % (0.0-2.0) 06/01/18 07:30 PT 11.5 SECONDS (9.5-11.5) 05/31/18 06:25 INR 1.12 (0.5-1.4) 05/31/18 06:25 Sodium 139 mEq/L (136-145) 06/01/18 07:30 Potassium 3.9 mEq/L (3.5-5.1) 06/01/18 07:30 Chloride 109 mEq/L (98-107) H 06/01/18 07:30 Carbon Dioxide 25.6 mEq/L (21.0-31.0) 06/01/18 07:30 Anion Gap 8.3 (7.0-16.0) 06/01/18 07:30 BUN 19 mg/dL (7-25) 06/01/18 07:30 Creatinine 0.7 mg/dL (0.7-1.3) 06/01/18 07:30 Est GFR ( Amer) > 60.0 ml/min (>90) 06/01/18 07:30 Est GFR (Non-Af Amer) > 60.0 ml/min 06/01/18 07:30 BUN/Creatinine Ratio 27.1 06/01/18 07:30 Glucose 95 mg/dL (70-105) 06/01/18 07:30 Calcium 8.5 mg/dL (8.6-10.3) L 06/01/18 07:30 Phosphorus 3.6 mg/dL (2.5-5.0) 05/25/18 17:21 Magnesium 2.0 mg/dL (1.9-2.7) 05/31/18 06:25 Total Bilirubin 0.4 mg/dL (0.3-1.0) 06/01/18 07:30 AST 14 U/L (13-39) 06/01/18 07:30 ALT 8 U/L (7-52) 06/01/18 07:30 Alkaline Phosphatase 42 U/L (34-104) 06/01/18 07:30 Total Protein 4.9 gm/dL (6.0-8.3) L 06/01/18 07:30 Albumin 2.7 gm/dL (4.2-5.5) L 06/01/18 07:30 Globulin 2.2 gm/dL 06/01/18 07:30 Albumin/Globulin Ratio 1.2 (1.0-1.8) 06/01/18 07:30 Urine Source CATH 05/25/18 19:03 Urine Color YELLOW 05/25/18 19:03 Urine Clarity CLEAR (CLEAR) 05/25/18 19:03 Urine pH 6.0 (4.6 - 8.0) 05/25/18 19:03 Ur Specific [place] 1.020 (1.005-1.030) 05/25/18 19:03 Urine Protein NEGATIVE mg/dL (NEGATIVE) 05/25/18 19:03 Urine Glucose (UA) NEGATIVE mg/dL (NEGATIVE) 05/25/18 19:03 Urine Ketones NEGATIVE mg/dL (NEGATIVE) 05/25/18 19:03 Urine Blood TRACE (NEGATIVE) 05/25/18 19:03 Urine Nitrate NEGATIVE (NEGATIVE) 05/25/18 19:03 Urine Bilirubin NEGATIVE (NEGATIVE) 05/25/18 19:03 Urine Urobilinogen 0.2 E.U./dL (0.2 - 1.0) 05/25/18 19:03 Ur Leukocyte Esterase NEGATIVE (NEGATIVE) 05/25/18 19:03 Urine RBC 2-5 /hpf (0-5) H 05/25/18 19:03 Urine WBC 0-2 /hpf (0-5) 05/25/18 19:03 Ur Epithelial Cells FEW /lpf (FEW) 05/25/18 19:03 Urine Bacteria FEW /hpf (NONE SEEN) 05/25/18 19:03 Urine Mucus FEW /lpf (FEW) 05/25/18 19:03 Urine Opiates Screen NEGATIVE (NEGATIVE) 05/25/18 19:03 Urine Methadone Screen NEGATIVE (NEGATIVE) 05/25/18 19:03 Ur Barbiturates Screen NEGATIVE (NEGATIVE) 05/25/18 19:03 Ur Tricyclics Screen NEGATIVE (NEGATIVE) 05/25/18 19:03 Ur Phencyclidine Scrn NEGATIVE (NEGATIVE) 05/25/18 19:03 Amphetamines Screen NEGATIVE (NEGATIVE) 05/25/18 19:03 U Methamphetamines Scrn NEGATIVE (NEGATIVE) 05/25/18 19:03 U Benzodiazepines Scrn NEGATIVE (NEGATIVE) 05/25/18 19:03 U Cocaine Metab Screen NEGATIVE (NEGATIVE) 05/25/18 19:03 U Cannabinoids Screen NEGATIVE (NEGATIVE) 05/25/18 19:03 - Physical Exam Vitals and I&O: Vital Signs Temp 98.7 F 06/01/18 08:00 Pulse 92 06/01/18 08:18 Resp 20 06/01/18 10:00 BP 88/63 06/01/18 08:00 Pulse Ox 97 06/01/18 08:18 Intake & Output 05/31/18 06/01/18 06/01/18 18:59 06:59 18:59 Intake Total 657.5 1307.5 Balance 657.5 1307.5 Weight (lbs) 64.41 kg Intake: Intake, IV Amount 307.5 1307.5 D5-0.45NS w/20 mEq KCL 1, 1000 000 ml @ 100 mls/hr IV . Q10H [facility] Rx#:[id number] Levetiracetam 750 mg In 107.5 107.5 Sodium Chloride 0.9% 100 ml @ 400 mls/hr IV Q12HR [facility] Rx#:[id number] Piperacillin Sodium/ 100 100 Tazobact 3.375 gm In Sodium Chloride 0.9% 50 ml @ 100 mls/hr IV Q6HR [facility] Rx#:[id number] metroNIDAZOLE 500mg/NS 100 100 100mL 500 mg In 100 ml @ 100 mls/hr IV Q8HR [facility] Rx #:[id number] Oral 350 Other: # Voids 3 Stool Characteristics Soft Soft Formed Formed Brown Brown Weight Source Bedscale Active Medications: Current Medications Acetaminophen (Tylenol) 650 mg PO Q6H PRN PRN Reason: Pain or Fever >101 Stop: 07/29/18 13:03 Acetaminophen (Tylenol 650mg Supp) 650 mg RC Q6H PRN PRN Reason: Pain or Fever >101 Stop: 07/29/18 15:30 Last Admin: 05/30/18 20:58 Dose: 650 mg Al Hydrox/Mg Hydrox/Simethicone (Maalox) 30 ml PO Q6H PRN PRN Reason: ABDOMINAL DISTRESS Last Admin: 05/30/18 12:10 Dose: 30 ml Aspirin (Aspirin Chewable) 81 mg PO DAILY [facility] Stop: 07/25/18 08:59 Last Admin: 06/01/18 09:18 Dose: 81 mg Docusate Sodium (Colace) 250 mg PO DAILY [facility] Stop: 07/25/18 08:59 Last Admin: 06/01/18 09:18 Dose: 250 mg Enoxaparin Sodium (Lovenox) 40 mg SUBQ DAILY [facility] Stop: 07/26/18 09:14 Last Admin: 06/01/18 09:18 Dose: 40 mg Potassium Chloride/Dextrose/Sod Cl (D5-0.45ns W/20 Meq Kcl) 1,000 mls @ 100 mls /hr IV .Q10H [facility] Stop: 07/29/18 20:08 Last Admin: 05/31/18 22:13 Dose: 100 mls/hr Piperacillin Sod/Tazobactam (Sod 3.375 gm/ Sodium Chloride) 50 mls @ 100 mls/ hr IV Q6HR [facility] Stop: 07/29/18 21:59 Last Admin: 06/01/18 11:21 Dose: 100 mls/hr Metronidazole (Flagyl) 500 mg in 100 mls @ 100 mls/hr IV Q8HR [facility] Stop: 07/29/18 20:59 Last Admin: 06/01/18 04:39 Dose: 100 mls/hr Levetiracetam 750 mg/ Sodium (Chloride) 107.5 mls @ 400 mls/hr IV Q12HR [facility] Stop: 07/29/18 21:59 Last Admin: 06/01/18 09:17 Dose: 400 mls/hr Lactobacillus Rhamnosus (Culturelle 15b) 1 each PO DAILY [facility] Stop: 08/01/18 08:59 Magnesium Citrate (Citroma) 17.5 gm GT X1 ONE Stop: 06/01/18 11:23 Magnesium Hydroxide (Milk Of Magnesia) 30 ml PO HS PRN PRN Reason: Constipation Stop: 07/24/18 20:17 Miscellaneous (Probiotic Screen) 1 ea MC PRN PRN PRN Reason: PROTOCOL Stop: 07/31/18 11:04 Olanzapine (Zyprexa) 5 mg PO HS [facility]; Protocol Stop: 07/24/18 20:59 Last Admin: 05/31/18 20:38 Dose: 5 mg Ondansetron HCl (Zofran) 4 mg IV Q4H PRN PRN Reason: Nausea / Vomiting Stop: 07/29/18 13:04 Last Admin: 05/30/18 20:54 Dose: 4 mg Pantoprazole Sodium (Protonix) 40 mg IVP BID [facility] Stop: 07/29/18 16:59 Last Admin: 06/01/18 09:18 Dose: 40 mg General: Alert, No acute distress HEENT: Atraumatic, PERRLA Neck: Supple, JVD Cardiovascular: Regular rate, Normal S1, Normal S2 Lungs: Clear to auscultation Abdomen: Bowel sounds, Soft - Procedures Procedures: Procedures Procedure Code Date GROUP PSYCHOTHERAPY 77865 08/19/15 GROUP PSYCHOTHERAPY GZHZZZZ 08/19/15 Assessment/Plan - Problem List Patient Problems: All Active Problems POSSIBLE SEIZURE ACTIVITY (Acute) - Assessment Assessment: 58 YO MALE WITH UGI BLEED SEEMS RESOLVED HGB NORMAL NO CONSENT FOR EGD UGI NOTED CONSTIPATION 1.CONSIDER EGD IF CONSENT 2.FOLLOW H/H 3.PROTONIX 4.LAXATIVES
[2018-06-02] MEDS ORDERED: Lactobacillus Rhamnosus GG 15 Billion CFU CAP.SPRINK PO SCH (09:00)
--- NOTE | 2018-06-12 22:11 | Discharge Summary ---
DATE OF DISCHARGE: 06/01/2018 FINAL DIAGNOSES: 1. Sepsis. 2. Acute gastroenteritis. 3. Acute encephalopathy. 4. Status epilepticus. 5. Psychosis. REVIEW OF HISTORY: The patient is a 58-year-old male with long history of seizure disorder, CVA, psychosis, admitted to [facility] on 04/25/2018 with sepsis, acute gastroenteritis, status epilepticus encephalopathy. VITAL SIGNS: Temperature 98.3, heart rate 78, blood pressure 121/88. CHEST: Clear to auscultation. ABDOMEN: Soft, mild tenderness. Rebound negative. EXTREMITIES: No edema. LABORATORY DATA: White blood cell count 6, hemoglobin ____ hematocrit ____. Sodium 137, potassium 3.5, BUN 16, creatinine 1.0. COURSE OF HOSPITALIZATION: During his hospitalization, the patient improved clinically. On 08/26/2018, the patient still has nausea, no vomiting. CHEST: Clear to auscultation. ABDOMEN: Soft, mild tenderness. Rebound negative. EXTREMITIES: No edema. On the 05/30/2018, the patient was doing better. White blood cell count 6.5, hemoglobin 13.6. Sodium 138, potassium 3.8. CHEST: Clear to auscultation. ABDOMEN: Soft, bowel sounds positive. His diet was advanced. PT evaluation and treatment ordered. On the 05/31/2018, the patient was tolerating his feeding well. CHEST: Clear to auscultation. ABDOMEN: Soft, bowel sounds positive. DISPOSITION: On 06/01/2018, the patient discharged to [facility] to continue medication and diet. CONDITION ON DISCHARGE: Stable. MEDICATIONS: Follow discharge reconciliation. [facility]# [id number]
== END 2018-06-01 18:35 | DRG 872 ==
LOC: ER 16:40 → MSI 19:51 → TELE 20:37
PROVIDERS: ADMIT Family Medicine; ATTEND Family Medicine
DX: A41.9 Sepsis, unspecified organism (principal); K92.2 Gastrointestinal hemorrhage, unspecified; G40.901 Epilepsy, unspecified, not intractable, with status epilepticus; F03.90 Unspecified dementia, unspecified severity, without behavioral disturbance, psychotic disturbance, mood disturbance, and anxiety; F20.9 Schizophrenia, unspecified; R13.12 Dysphagia, oropharyngeal phase; K59.00 Constipation, unspecified; M62.59 Muscle wasting and atrophy, not elsewhere classified, multiple sites; Z86.73 Personal history of transient ischemic attack (TIA), and cerebral infarction without residual deficits; Z86.59 Personal history of other mental and behavioral disorders; Z53.8 Procedure and treatment not carried out for other reasons
CPT/HCPCS: 36415-UA; 70450-TC; 76700-TC; 80048-TC; 80053-TC; 80307; 81001-TC; 83735-TC; 84100-TC; 85025-TC; 85610-TC; 87086-90; 90784; 90799; 94760; C9113; J1650; J1953; J2405; J2543; J7051; Z7610

== ENCOUNTER 2019-12-06 17:47 | Inpatient (IN) | payer MEDICARE, MEDICAID ==
[2019-12-07 01:29] VITALS: BP 150/103
[2019-12-07] MEDS ORDERED: Maalox 30 mL Cup PO PRN (01:42)
[2019-12-07] MEDS: Multivitamin w/ Minerals Tab PO SCH ×2 (09:32→09:46)
--- NOTE | 2019-12-07 12:54 | Psychiatric Evaluation ---
DATE OF SERVICE: 12/07/2019 IDENTIFYING DATA: The patient is a 59-year-old male, resident of [facility]. Information obtained by directly interviewing the patient as well as reviewing the admission papers and they are reliable. JUSTIFICATION OF HOSPITALIZATION: The patient is admitted on a 5150 as a danger to self and being gravely disabled. CHIEF COMPLAINT: "I don't know, I did not do anything to be in here." HISTORY OF PRESENT ILLNESS: This is the third psychiatric hospitalization to [facility]. The patient is reported to be residing at a care home facility. On the day of the hospitalization, the patient is reported to have been frustrated and wanted to end his life, put an electrical cord around his neck in a suicidal attempt and hence the patient has been admitted over here for stabilization. PAST PSYCHIATRIC HISTORY: Please refer to the above. The patient was hospitalized in 2017 and 2018 and the patient has possibly diagnosed to have psychiatric disorder, otherwise specified to rule out bipolar disorder and the patient is being followed by Dr. Flores an outpatient basis and in view of the patient's suicidal gesture, the patient has been referred over here for further stabilization. Chart is reviewed. The patient is interviewed. During the evaluation, the patient is superficially cooperative and he is denying anything that are happened for him to be in here. MEDICAL HISTORY: Physical examination is requested to be done by Dr. Simon. SUBSTANCE ABUSE HISTORY: None. PHYSICAL OR SEXUAL ABUSE HISTORY: None. LEGAL PROBLEMS: None at this time. SOCIAL HISTORY: The patient is reported to have multiple medical problems and has been getting easily frustrated to deal with it. MENTAL STATUS EXAMINATION: The patient is a 59-year-old, looking older than his stated age. He is superficially cooperative. Eye contact is poor. Mood is noted to be irritable. Affect is constricted. Insight and judgment at this time are noted to be still impaired. Impulse control is noted to be limited. Coping skills are noted to be limited. The patient's attention span and concentration are noted to be poor. Short term memory poor. Long-term memory seems to be fair. The patient, however, has been reluctant to give the details. The patient is reported to have a history of CVA and has been having difficult time to do the cognitive functioning. They are being tested at this time. The patient is reported to have been feeling frustrated and wanted to put a cord around his neck in an attempt to end his life. DIAGNOSES: AXIS I: A. Major depressive disorder, recurrent and severe. B. 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 AXIS II: None. AXIS III: As per Dr. Simon. IMMEDIATE TREATMENT PLAN: The patient is going to be observed on inpatient unit, provided with supportive psychotherapy. The patient is going to be closely monitored. Encouraged to participate in the groups and verbalize the concerns rather than to act out. In view of the depression, the patient is going to be placed on low dose of Lexapro and will be encouraged to participate in the groups and verbalize the concerns. Once stabilized, the patient is [facility] to be followed up on an outpatient basis. JOB# [id number]
--- NOTE | 2019-12-07 20:07 | Consultation ---
DATE OF CONSULTATION: 12/07/2019 CHIEF COMPLAINT: Suicidal ideation. HISTORY OF PRESENT ILLNESS: A 59-year-old male with past medical history significant for dementia and seizure disorder who presents from [facility] after verbalizing suicidal ideation and suicidal gesture. The patient is a poor historian. Denies any medical complaints. PAST MEDICAL HISTORY: The patient has history of CVA, hypertension, seizure disorder, hyperlipidemia, psychiatric disorder. MEDICATIONS: The patient is on atorvastatin, Coreg, docusate, Keppra, multivitamins, Tylenol, Xarelto. ALLERGIES: The patient has no known drug allergies. SOCIAL HISTORY: The patient denies tobacco, alcohol or illicit drug use. FAMILY HISTORY: Noncontributory. REVIEW OF SYSTEMS: IMMUNOLOGIC: No recurrent infection. CARDIOVASCULAR: No heart disease. The patient does have hypertension. GASTROINTESTINAL: No nausea, vomiting, diarrhea. ENDOCRINE: No diabetes or disorder. NEUROLOGIC: The patient has had seizure and stroke. HEMATOLOGIC: No bleeding or clotting disorder. PHYSICAL EXAMINATION: GENERAL: The patient is awake, alert, in no acute distress. VITAL SIGNS: Temperature 98.2, pulse 92, respiration 20, blood pressure 141/85. HEENT: Pupils equally round, anicteric sclerae. NECK: Supple, no JVD, mass or bruit. LUNGS: Clear to auscultation. HEART: S1, S2. Regular rate and rhythm. ABDOMEN: Soft, nontender, positive bowel sounds. EXTREMITIES: No clubbing, cyanosis or edema. BACK: No deformity. NEUROLOGIC: Cranial nerves 2-12 intact. No motor or sensory deficits. ASSESSMENT: 1. Psychiatric disorder. 2. Seizure disorder. 3. Hypertension. 4. Cerebrovascular accident. 5. Hyperlipidemia. PLAN: The patient has been admitted for further psychiatric evaluation and treatment. The patient is to continue his usual medications. We will continue to monitor the patient's blood pressure. The patient is medically cleared to participate in activities. [facility]# [id number]
[2019-12-07] MEDS ORDERED: Atorvastatin Calcium 10 MG TAB PO SCH (21:00)
[2019-12-08] MEDS: Escitalopram Oxalate 5 mg Tab PO SCH (09:25)
[2019-12-08] MEDS: Multivitamin w/ Minerals Tab PO SCH (09:25)
--- NOTE | 2019-12-08 14:45 | Progress Notes ---
DATE: 12/08/2019 PSYCHIATRIC PROGRESS NOTE SUBJECTIVE: Staff was spoken to. The patient is interviewed. Mood is noted to be irritable. Affect is constricted. Insight and judgment at this time are noted to be still impaired. Impulse control is noted to be limited. The patient is isolative and withdrawn. The patient does not want to participate in any of the groups. The patient is extremely depressed and has been lying down in the bed most of the time with very little interaction. The patient is currently on Lexapro 5 mg. PLAN: To closely monitor the patient and possibly add a low dose of the Abilify if the patient is not going to be responding to Lexapro. JOB# [id number]
--- NOTE | 2019-12-08 14:54 | General Progress Note ---
Subjective - Review of Systems Service Date: 12/08/19 Subjective: RESTING COMFORTABLY NO DISTRESS Objective - Physical Exam Vitals and I&O: Vital Signs Temp 98.0 F 12/08/19 06:14 Pulse 94 12/08/19 09:24 Resp 18 12/08/19 06:14 BP 124/83 12/08/19 09:24 Pulse Ox 95 12/08/19 06:14 Intake & Output 12/07/19 12/08/19 12/08/19 18:59 06:59 18:59 Intake Total 1200 180 Balance 1200 180 Intake: Oral 1200 180 Other: # Voids 2 # Bowel Movements 1 2 Stool Characteristics Formed Formed Active Medications: Current Medications Acetaminophen (Tylenol) 650 mg PO Q4H PRN PRN Reason: Pain or Fever >101 Stop: 02/05/20 01:50 Al Hydrox/Mg Hydrox/Simethicone (Maalox) 30 ml PO Q4HR PRN PRN Reason: GI DISTRESS Stop: 02/05/20 01:41 Atorvastatin Calcium (Lipitor) 40 mg PO [facility]; Protocol Stop: 02/05/20 20:59 Last Admin: 12/07/19 21:04 Dose: 40 mg Carvedilol (Coreg) 6.25 mg PO BID [facility] [place] Stop: 02/05/20 08:59 Last Admin: 12/08/19 09:24 Dose: Not Given Docusate Sodium (Colace) 100 mg PO BID [facility] Stop: 02/05/20 08:59 Last Admin: 12/08/19 09:25 Dose: Not Given Escitalopram Oxalate (Lexapro) 5 mg PO DAILY [facility]; Protocol Stop: 02/06/20 08:59 Last Admin: 12/08/19 09:25 Dose: Not Given Levetiracetam (Keppra) 1,500 mg PO BID [facility] Stop: 02/05/20 08:59 Last Admin: 12/08/19 09:25 Dose: Not Given Lorazepam (Ativan) 0.5 mg PO Q4HR PRN; Protocol PRN Reason: Anxiety Stop: 01/06/20 01:41 Last Admin: 12/07/19 09:43 Dose: 0.5 mg Rivaroxaban (Xarelto) 10 mg PO [facility] Stop: 02/05/20 20:59 Last Admin: 12/07/19 21:05 Dose: 10 mg Zolpidem Tartrate (Ambien) 5 mg PO HS PRN PRN Reason: Insomnia Stop: 02/05/20 01:41 General: No acute distress HEENT: PERRLA Neck: Supple, JVD Cardiovascular: Regular rate, Normal S1, Normal S2 Lungs: Clear to auscultation Abdomen: Bowel sounds, Soft - Procedures Procedures: Procedures Procedure Code Date GROUP PSYCHOTHERAPY 76855 08/19/15 GROUP PSYCHOTHERAPY GZHZZZZ 08/19/15 Assessment/Plan - Assessment Assessment: CVA SZ D/O HTN HYPERLIPIDEMIA - Plan Plan: CONTINUE CURRENT TREATMENT
[2019-12-09] MEDS: Multivitamin w/ Minerals Tab PO SCH (08:40)
[2019-12-09] MEDS: Escitalopram Oxalate 5 mg Tab PO SCH (08:40)
--- NOTE | 2019-12-09 17:03 | Internal Medicine Prog Note ---
Internal Medicine Subjective - Subjective Service Date: 12/09/19 Patient seen and examined:: with staff (THE PATIENT IS DOING BETTER) Patient is:: awake, verbal, in bed, talking, confused Per staff patient has:: no adverse event Internal Medicine Objective - Physical Exam Vitals and I&O: Vital Signs Temp 98.2 F 12/09/19 15:16 Pulse 78 12/09/19 16:28 Resp 19 12/09/19 15:16 BP 128/79 12/09/19 16:28 Pulse Ox 97 12/09/19 15:16 Intake & Output 12/08/19 12/09/19 12/09/19 18:59 06:59 18:59 Intake Total 500 240 Output Total 1 Balance 500 239 Intake: Oral 500 240 Output: Stool 0 Urine/Stool Mix 1 Other: # Voids 1 # Bowel Movements 1 Stool Characteristics Formed Formed Active Medications: Current Medications Acetaminophen (Tylenol) 650 mg PO Q4H PRN PRN Reason: Pain or Fever >101 Stop: 02/05/20 01:50 Al Hydrox/Mg Hydrox/Simethicone (Maalox) 30 ml PO Q4HR PRN PRN Reason: GI DISTRESS Stop: 02/05/20 01:41 Atorvastatin Calcium (Lipitor) 40 mg PO HS [facility]; Protocol Stop: 02/05/20 20:59 Last Admin: 12/08/19 21:25 Dose: 40 mg Carvedilol (Coreg) 6.25 mg PO BID [facility] Stop: 02/05/20 08:59 Last Admin: 12/09/19 16:28 Dose: 6.25 mg Docusate Sodium (Colace) 100 mg PO BID [facility] Stop: 02/05/20 08:59 Last Admin: 12/09/19 16:28 Dose: 100 mg Escitalopram Oxalate (Lexapro) 5 mg PO DAILY [facility]; Protocol Stop: 02/06/20 08:59 Last Admin: 12/09/19 08:40 Dose: 5 mg Levetiracetam (Keppra) 1,500 mg PO BID [facility] Stop: 02/05/20 08:59 Last Admin: 12/09/19 16:28 Dose: 1,500 mg Lorazepam (Ativan) 0.5 mg PO Q4HR PRN; Protocol PRN Reason: Anxiety Stop: 01/06/20 01:41 Last Admin: 12/07/19 09:43 Dose: 0.5 mg Rivaroxaban (Xarelto) 10 mg PO HS [facility] Stop: 02/05/20 20:59 Last Admin: 12/08/19 21:26 Dose: 10 mg Zolpidem Tartrate (Ambien) 5 mg PO HS PRN PRN Reason: Insomnia Stop: 02/05/20 01:41 General: demented HEENT: NC/AT, PERRLA, EOMI, anicteric sclerae, throat clear Neck: Supple, No JVD, No thyromegaly, +2 carotid pulse wo bruit, No LAD Lungs: CTAB Cardiovascular: RRR, Normal S1, Normal S2, without murmur Abdomen: soft, non-tender, non-distended Extremities: clear Neurological: no change - Procedures Procedures: Procedures Procedure Code Date GROUP PSYCHOTHERAPY 96668 08/19/15 GROUP PSYCHOTHERAPY GZHZZZZ 08/19/15 Internal Medicine Assmt/Plan - Assessment Assessment: 1.HTN. 2.CVA. 3.SEIZURE DISORDER. 4.PSYCHOSIS - Plan Plan: CONTINUE ON CURRENT MEDICATION AND DIET
--- NOTE | 2019-12-10 00:18 | Progress Notes ---
DATE: 12/09/2019 PSYCHIATRIC PROGRESS NOTE SUBJECTIVE: Staff was spoken to. The patient is interviewed. Mood is noted to be irritable. Affect is constricted. Insight and judgment at this time are noted to be still impaired. Impulse control seems to be limited. The patient is isolative and withdrawn. Coping skills are noted to be very poor. The patient has been having difficult time to cope with the stress. No side effects to the medications are noted. ASSESSMENT: The patient is still depressed and the patient does not want to talk about his thoughts of taking his life by putting a cord around his neck. The patient is stating that he is frustrated and does not want to talk about it. ASSESSMENT: The patient is still depressed. PLAN: To continue the patient with the supportive therapy and followup. JOB# [id number]
[2019-12-10] MEDS: Multivitamin w/ Minerals Tab PO SCH ×2 (09:29→12:24)
[2019-12-10] MEDS: Escitalopram Oxalate 5 mg Tab PO SCH ×2 (09:29→12:24)
--- NOTE | 2019-12-10 12:31 | Progress Notes ---
DATE: 12/10/2019 PSYCHIATRIC PROGRESS NOTE SUBJECTIVE: Staff was spoken to. The patient is interviewed. Mood is noted to be depressed. Affect is constricted. The patient's insight and judgment at this time are noted to be still impaired. Impulse control is noted to be limited. The patient is isolative and withdrawn. The patient has no insight into his illness. The patient is very quiet when asked about the suicidal ideation and the plans that he had. The patient is reluctant to talk about it. The patient has no insight into his illness. PLAN: Closely monitor the patient. I encouraged the patient to verbalize the concerns rather than to act out. The patient is currently placed on low dose of Celexa. JOB# [id number]
--- NOTE | 2019-12-10 20:40 | Internal Medicine Prog Note ---
Internal Medicine Subjective - Subjective Service Date: 12/10/19 Patient seen and examined:: without staff (HE IS DOING WELL) Patient is:: awake, verbal, in bed, talking, confused Per staff patient has:: no adverse event Internal Medicine Objective - Physical Exam Vitals and I&O: Vital Signs Temp 99.0 F 12/10/19 14:00 Pulse 80 12/10/19 17:41 Resp 20 12/10/19 19:58 BP 125/94 12/10/19 17:41 Pulse Ox 94 12/10/19 14:00 Intake & Output 12/10/19 12/10/19 12/11/19 06:59 18:59 06:59 Intake Total 120 620 Balance 120 620 Intake: Oral 120 620 Other: # Voids 3 # Bowel Movements 1 1 Stool Characteristics Formed Formed Formed Active Medications: Current Medications Acetaminophen (Tylenol) 650 mg PO Q4H PRN PRN Reason: Pain or Fever >101 Stop: 02/05/20 01:50 Al Hydrox/Mg Hydrox/Simethicone (Maalox) 30 ml PO Q4HR PRN PRN Reason: GI DISTRESS Stop: 02/05/20 01:41 Atorvastatin Calcium (Lipitor) 40 mg PO HS [facility]; Protocol Stop: 02/05/20 20:59 Last Admin: 12/09/19 21:14 Dose: 40 mg Carvedilol (Coreg) 6.25 mg PO BID [facility] Stop: 02/05/20 08:59 Last Admin: 12/10/19 17:41 Dose: 6.25 mg Docusate Sodium (Colace) 100 mg PO BID [facility] Stop: 02/05/20 08:59 Last Admin: 12/10/19 17:40 Dose: 100 mg Escitalopram Oxalate (Lexapro) 5 mg PO DAILY [facility]; Protocol Stop: 02/06/20 08:59 Last Admin: 12/10/19 12:24 Dose: 5 mg Levetiracetam (Keppra) 1,500 mg PO BID [facility] Stop: 02/05/20 08:59 Last Admin: 12/10/19 17:40 Dose: 1,500 mg Lorazepam (Ativan) 0.5 mg PO Q4HR PRN; Protocol PRN Reason: Anxiety Stop: 01/06/20 01:41 Last Admin: 12/07/19 09:43 Dose: 0.5 mg Rivaroxaban (Xarelto) 10 mg PO HS [facility] Stop: 02/05/20 20:59 Last Admin: 12/09/19 21:14 Dose: 10 mg Zolpidem Tartrate (Ambien) 5 mg PO HS PRN PRN Reason: Insomnia Stop: 02/05/20 01:41 Last Admin: 12/09/19 21:15 Dose: 5 mg General: demented HEENT: NC/AT, PERRLA, EOMI, anicteric sclerae, throat clear Neck: Supple, No JVD, No thyromegaly, +2 carotid pulse wo bruit, No LAD Lungs: CTAB Cardiovascular: RRR, Normal S1, Normal S2, without murmur Abdomen: soft, non-tender, non-distended Extremities: clear Neurological: no change - Procedures Procedures: Procedures Procedure Code Date GROUP PSYCHOTHERAPY 29931 08/19/15 GROUP PSYCHOTHERAPY GZHZZZZ 08/19/15 Internal Medicine Assmt/Plan - Assessment Assessment: 1.HTN. 2.CVA. 3.SEIZURE DISORDER. 4.PSYCHOSIS - Plan Plan: CONTINUE ON CURRENT MEDICATION AND DIET
[2019-12-11] MEDS: Escitalopram Oxalate 5 mg Tab PO SCH (08:37)
[2019-12-11] MEDS: Multivitamin w/ Minerals Tab PO SCH (08:38)
[2019-12-11] MEDS ORDERED: Escitalopram Oxalate 5 mg Tab PO SCH (16:47)
--- NOTE | 2019-12-11 19:40 | Progress Notes ---
DATE: 12/11/2019 PSYCHOLOGY PROGRESS NOTE SUBJECTIVE: The patient is seen and is interviewed. Case is discussed with staff. The patient presents as depressed. The patient is withdrawn. The patient continues to be impulsive according to staff; however, the patient appears to be withdrawn but preoccupied with internal stimuli with periods of confusion. The patient states that he still thinks about suicide. OBJECTIVE: Mood is depressed. Affect is constricted. Thought process includes suicidal ideation, which is passive at the time of this clinical interview. He denied any plan or active intention. The patient endorsed the item of experiencing auditory hallucinations. The patient denied that these are persecutory type, but did indicate that they are possibly command type telling him to hurt himself. The patient has poor insight into his illness. Staff reports the patient has been withdrawn and isolative, but is compliant with his medication. ASSESSMENT AND PLAN: The patient's psychosis and depression persist. PLAN: We will provide reality orientation, differentiation and integration on a daily basis. We will offer the opportunity for the patient to verbally contract for safety on a daily basis. We will provide suicide assessment and prevention interventions. We will provide coping strategies for chronic severe mental illness. We will provide remotivation for the patient to stay compliant with his medication and to follow through with staff direction. We will follow up in 2-3 days if the patient remains on the unit and is able to demonstrate the capacity to benefit from psychotherapeutic treatment. JOB# [id number] CAM
--- NOTE | 2019-12-11 19:51 | Progress Notes ---
DATE: 12/11/2019 PSYCHIATRIC PROGRESS NOTE SUBJECTIVE: Staff was spoken to. The patient is interviewed. Mood is noted to be depressed. Affect is constricted. The patient is isolative and withdrawn. Insight and judgment are noted to be still impaired. Impulse control is noted to be limited. Coping skills are noted to be limited. The patient has been having difficult time to cope with the stress. The patient is reluctant to participate in the groups. The patient is still voicing suicidal ideation. No homicidal ideation is noted. ASSESSMENT: The patient is still depressed. PLAN: To increase the dose on the Lexapro to 10 mg and follow the patient up with the supportive therapy. JOB# [id number]
--- NOTE | 2019-12-11 22:19 | Internal Medicine Prog Note ---
Internal Medicine Subjective - Subjective Service Date: 12/11/19 Patient seen and examined:: without staff (HE IS DOING WELL) Patient is:: awake, verbal, in bed, talking, confused Per staff patient has:: no adverse event Internal Medicine Objective - Physical Exam Vitals and I&O: Vital Signs Temp 98.4 F 12/11/19 20:14 Pulse 72 12/11/19 20:14 Resp 18 12/11/19 20:14 BP 136/72 12/11/19 20:14 Pulse Ox 96 12/11/19 20:14 Intake & Output 12/11/19 12/11/19 12/12/19 06:59 18:59 06:59 Intake Total 800 120 Balance 800 120 Intake: Oral 800 120 Other: # Voids 3 3 2 # Bowel Movements 0 0 0 Stool Characteristics Formed Active Medications: Current Medications Acetaminophen (Tylenol) 650 mg PO Q4H PRN PRN Reason: Pain or Fever >101 Stop: 02/05/20 01:50 Al Hydrox/Mg Hydrox/Simethicone (Maalox) 30 ml PO Q4HR PRN PRN Reason: GI DISTRESS Stop: 02/05/20 01:41 Atorvastatin Calcium (Lipitor) 40 mg PO HS [facility]; Protocol Stop: 02/05/20 20:59 Last Admin: 12/11/19 21:11 Dose: 40 mg Carvedilol (Coreg) 6.25 mg PO BID [facility] Stop: 02/05/20 08:59 Last Admin: 12/11/19 16:55 Dose: 6.25 mg Docusate Sodium (Colace) 100 mg PO BID [facility] Stop: 02/05/20 08:59 Last Admin: 12/11/19 16:55 Dose: 100 mg Escitalopram Oxalate (Lexapro) 10 mg PO DAILY [facility]; Protocol Stop: 02/06/20 08:59 Levetiracetam (Keppra) 1,500 mg PO BID [facility] Stop: 02/05/20 08:59 Last Admin: 12/11/19 16:56 Dose: 1,500 mg Lorazepam (Ativan) 0.5 mg PO Q4HR PRN; Protocol PRN Reason: Anxiety Stop: 01/06/20 01:41 Last Admin: 12/07/19 09:43 Dose: 0.5 mg Rivaroxaban (Xarelto) 10 mg PO HS [facility] Stop: 02/05/20 20:59 Last Admin: 12/11/19 21:12 Dose: 10 mg Zolpidem Tartrate (Ambien) 5 mg PO HS PRN PRN Reason: Insomnia Stop: 02/05/20 01:41 Last Admin: 12/11/19 21:11 Dose: 5 mg General: demented HEENT: NC/AT, PERRLA, EOMI, anicteric sclerae, throat clear Neck: Supple, No JVD, No thyromegaly, +2 carotid pulse wo bruit, No LAD Lungs: CTAB Cardiovascular: RRR, Normal S1, Normal S2, without murmur Abdomen: soft, non-tender, non-distended Extremities: clear Neurological: no change - Procedures Procedures: Procedures Procedure Code Date GROUP PSYCHOTHERAPY 24678 08/19/15 GROUP PSYCHOTHERAPY GZHZZZZ 08/19/15 Internal Medicine Assmt/Plan - Assessment Assessment: 1.HTN. 2.CVA. 3.SEIZURE DISORDER. 4.PSYCHOSIS - Plan Plan: CONTINUE ON CURRENT MEDICATION AND DIET Nutritional Asmnt/Malnutr-PDOC - Dietary Evaluation Malnutrition Findings (Please click <Entered> for more info): Nutritional Asmnt/Malnutrition Start: 12/11/19 11: 28 Text: Status: Complete Freq: Protocol: Document 12/11/19 11:28 NATE (Rec: 12/11/19 11:31 NATE [email or web address]) Nutritional Asmnt/Malnutrition Patient General Information Nutritional Screening Moderate Risk Diagnosis Psychosis Pertinent Medical Hx/Surgical Hx CVA, HTN, seizure disorder, hyperlipidemia, psychiatric disorder Subjective Information Pt is a 59-year-old male admitted on 12/06 d/t danger to self. Pt is eating an estimated 73% of meals (x3 days) Per Meal/Nutrition Activity Record. Dietary is currently providing an estimated 2324 kcals and 108 gm Pro, per Pt PO intake this is providing an estimated 1696 kcals and 77gm Pro to meet 100% kcal and 100% Pro needs- adequate. Anthropometrics HT: 57 WT: 142 LB (64.54 kg) BMI: 22.24 (Normal) GI/ Skin Integrity GI: Flat, Soft Non-Tender BM: 12/09 x1 I/O: 970/Not Noted Skin: WNL, Dryness Jose: 14 Diet Order: Mechanical Soft, QUAN Estimated Energy Needs: ( Geriatric, CBW) 4539-7293 kcals (25-30 kcals/ kg) 65-78 Pro (1.0-1.2 g/kg) 4760-0365 ml (25-30 ml/kg Current Diet Order/ Nutrition Support Mechanical Soft, QUAN Pertinent Medications Maalox (PRN), Lipitor, Colace Pertinent Labs No pertinent labs at this time Nutritional Hx/Data Height 1.7 m Height (Calculated Centimeters) 170.2 Current Weight (lbs) 64.41 kg Weight (Calculated Kilograms) 64.4 Weight (Calculated Grams) 38953.1 [place] Body Weight 148 % [place] Body Weight 96 Body Mass Index (BMI) 22.2 Weight Status Approriate GI Symptoms GI Symptoms None Last BM 12/09 Skin Integrity/Comment: Skin: WNL, Dryness Jose: 14 Current %PO Fair (50-74%) Estimated Nutritional Goals BEE in Kcals: Using Current wt Calories/Kcals/Kg 25-30 Kcals Calculated 5507-5093 Protein: Using Current wt Protein g/k.0-1.2 Protein Calculated 65-78 Fluid: ml 8328-6250 ml (25-30 ml/kg) Nutritional Problem 1. Problem Problem No nutrition diagnosis at this time. Etiology N/A Signs/Symptoms: N/A Malnutrition Related to Morbid Obesity Malnutrition related to morbid obesity No Intervention/Recommendation Comments 1. Continue msoft, QUAN diet as tolerated Expected Outcomes/Goals Expected Outcomes/Goals 1. PO intake to meet >75% of estimated nutritional needs. 2. Monitor PO intake, wt, nutrition related labs, and skin integrity. 3. F/U as low risk in 7-10 days, 12/17-12/20
[2019-12-12] MEDS: Multivitamin w/ Minerals Tab PO SCH (09:36)
--- NOTE | 2019-12-12 12:31 | Progress Notes ---
DATE: 12/12/2019 PSYCHIATRIC PROGRESS NOTE SUBJECTIVE: Staff was spoken to. The patient is interviewed. Mood is noted to be irritable. Affect is constricted. Coping skills are noted to be very poor. Sleep and appetite also noted to be very poor. The patient has been having difficult time. The patient is getting easily frustrated with the staff members. The patient is screaming and yelling at them. The patient had the [facility] hearing that was upheld. ASSESSMENT: The patient is still depressed and impulsive. PLAN: To continue the patient with the current medications. I encouraged the patient to verbalize the concerns rather than to act out. JOB# [id number]
--- NOTE | 2019-12-12 19:50 | Internal Medicine Prog Note ---
Internal Medicine Subjective - Subjective Service Date: 12/12/19 Patient seen and examined:: without staff (HE IS DOING GOOD) Patient is:: awake, verbal, in bed, talking, confused Per staff patient has:: no adverse event Internal Medicine Objective - Physical Exam Vitals and I&O: Vital Signs Temp 97.4 F 12/12/19 14:00 Pulse 78 12/12/19 16:52 Resp 18 12/12/19 14:00 BP 142/82 12/12/19 16:52 Pulse Ox 95 12/12/19 14:00 Intake & Output 12/12/19 12/12/19 12/13/19 06:59 18:59 06:59 Intake Total 240 800 Balance 240 800 Intake: Oral 240 800 Other: # Voids 2 # Bowel Movements 0 Stool Characteristics Formed Active Medications: Current Medications Acetaminophen (Tylenol) 650 mg PO Q4H PRN PRN Reason: Pain or Fever >101 Stop: 02/05/20 01:50 Al Hydrox/Mg Hydrox/Simethicone (Maalox) 30 ml PO Q4HR PRN PRN Reason: GI DISTRESS Stop: 02/05/20 01:41 Atorvastatin Calcium (Lipitor) 40 mg PO [facility]; Protocol Stop: 02/05/20 20:59 Last Admin: 12/11/19 21:11 Dose: 40 mg Carvedilol (Coreg) 6.25 mg PO BID [facility] Stop: 02/05/20 08:59 Last Admin: 12/12/19 16:52 Dose: 6.25 mg Docusate Sodium (Colace) 100 mg PO BID [facility] Stop: 02/05/20 08:59 Last Admin: 12/12/19 16:52 Dose: 100 mg Escitalopram Oxalate (Lexapro) 10 mg PO DAILY [facility]; Protocol Stop: 02/06/20 08:59 Levetiracetam (Keppra) 1,500 mg PO BID [facility] Stop: 02/05/20 08:59 Last Admin: 12/12/19 16:53 Dose: 1,500 mg Lorazepam (Ativan) 0.5 mg PO Q4HR PRN; Protocol PRN Reason: Anxiety Stop: 01/06/20 01:41 Last Admin: 12/07/19 09:43 Dose: 0.5 mg Rivaroxaban (Xarelto) 10 mg PO HS [facility] Stop: 02/05/20 20:59 Last Admin: 12/11/19 21:12 Dose: 10 mg Zolpidem Tartrate (Ambien) 5 mg PO HS PRN PRN Reason: Insomnia Stop: 02/05/20 01:41 Last Admin: 12/11/19 21:11 Dose: 5 mg General: demented HEENT: NC/AT, PERRLA, EOMI, anicteric sclerae, throat clear Neck: Supple, No JVD, No thyromegaly, +2 carotid pulse wo bruit, No LAD Lungs: CTAB Cardiovascular: RRR, Normal S1, Normal S2, without murmur Abdomen: soft, non-tender, non-distended Extremities: clear Neurological: no change - Procedures Procedures: Procedures Procedure Code Date GROUP PSYCHOTHERAPY 97549 08/19/15 GROUP PSYCHOTHERAPY GZHZZZZ 08/19/15 Internal Medicine Assmt/Plan - Assessment Assessment: 1.HTN. 2.CVA. 3.SEIZURE DISORDER. 4.PSYCHOSIS - Plan Plan: CONTINUE ON CURRENT MEDICATION AND DIET Nutritional Asmnt/Malnutr-PDOC - Dietary Evaluation Malnutrition Findings (Please click <Entered> for more info): Nutritional Asmnt/Malnutrition Start: 12/11/19 11: 28 Text: Status: Complete Freq: Protocol: Document 12/11/19 11:28 NATE (Rec: 12/11/19 11:31 NATE [email or web address]) Nutritional Asmnt/Malnutrition Patient General Information Nutritional Screening Moderate Risk Diagnosis Psychosis Pertinent Medical Hx/Surgical Hx CVA, HTN, seizure disorder, hyperlipidemia, psychiatric disorder Subjective Information Pt is a 59-year-old male admitted on 12/06 d/t danger to self. Pt is eating an estimated 73% of meals (x3 days) Per Meal/Nutrition Activity Record. Dietary is currently providing an estimated 2324 kcals and 108 gm Pro, per Pt PO intake this is providing an estimated 1696 kcals and 77gm Pro to meet 100% kcal and 100% Pro needs- adequate. Anthropometrics HT: 57 WT: 142 LB (64.54 kg) BMI: 22.24 (Normal) GI/ Skin Integrity GI: Flat, Soft Non-Tender BM: 12/09 x1 I/O: 970/Not Noted Skin: WNL, Dryness Jose: 14 Diet Order: Mechanical Soft, QUAN Estimated Energy Needs: ( Geriatric, CBW) 9578-7822 kcals (25-30 kcals/ kg) 65-78 Pro (1.0-1.2 g/kg) 6443-6833 ml (25-30 ml/kg Current Diet Order/ Nutrition Support Mechanical Soft, QUAN Pertinent Medications Maalox (PRN), Lipitor, Colace Pertinent Labs No pertinent labs at this time Nutritional Hx/Data Height 1.7 m Height (Calculated Centimeters) 170.2 Current Weight (lbs) 64.41 kg Weight (Calculated Kilograms) 64.4 Weight (Calculated Grams) 50633.1 [place] Body Weight 148 % [place] Body Weight 96 Body Mass Index (BMI) 22.2 Weight Status Approriate GI Symptoms GI Symptoms None Last BM 12/09 Skin Integrity/Comment: Skin: WNL, Dryness Jose: 14 Current %PO Fair (50-74%) Estimated Nutritional Goals BEE in Kcals: Using Current wt Calories/Kcals/Kg 25-30 Kcals Calculated 0902-2881 Protein: Using Current wt Protein g/k.0-1.2 Protein Calculated 65-78 Fluid: ml 7342-5806 ml (25-30 ml/kg) Nutritional Problem 1. Problem Problem No nutrition diagnosis at this time. Etiology N/A Signs/Symptoms: N/A Malnutrition Related to Morbid Obesity Malnutrition related to morbid obesity No Intervention/Recommendation Comments 1. Continue msoft, QUAN diet as tolerated Expected Outcomes/Goals Expected Outcomes/Goals 1. PO intake to meet >75% of estimated nutritional needs. 2. Monitor PO intake, wt, nutrition related labs, and skin integrity. 3. F/U as low risk in 7-10 days, 12/17-12/20
[2019-12-13] MEDS: Multivitamin w/ Minerals Tab PO SCH (08:11)
--- NOTE | 2019-12-13 15:21 | Progress Notes ---
DATE: 12/13/2019 PSYCHIATRIC PROGRESS NOTE SUBJECTIVE: Staff was spoken to. The patient is interviewed. Mood is noted to be anxious. The patient's insight and judgment at this time are noted to be improving. Impulse control seems to be fair. No major side effects are noted today. The patient is currently on Lexapro. The patient is willing to comply with the treatment on an outpatient basis. ASSESSMENT: The patient's depression is resolving. PLAN: To continue the patient with the supportive therapy and work with the rehabilitation caseworker with regards to the disposition of the patient. JOB# [id number]
--- NOTE | 2019-12-13 18:12 | Internal Medicine Prog Note ---
Internal Medicine Subjective - Subjective Service Date: 12/13/19 Patient seen and examined:: without staff (HE IS DOING BETTER) Patient is:: awake, verbal, in bed, talking, confused Per staff patient has:: no adverse event Internal Medicine Objective - Physical Exam Vitals and I&O: Vital Signs Temp 97.7 F 12/13/19 14:00 Pulse 69 12/13/19 16:17 Resp 20 12/13/19 14:00 BP 125/81 12/13/19 16:17 Pulse Ox 98 12/13/19 14:00 Intake & Output 12/12/19 12/13/19 12/13/19 18:59 06:59 18:59 Intake Total 800 360 Output Total 1 Balance 800 359 Intake: Oral 800 360 Output: Urine/Stool Mix 1 Other: # Voids 1 # Bowel Movements 1 Stool Characteristics Formed Formed Active Medications: Current Medications Acetaminophen (Tylenol) 650 mg PO Q4H PRN PRN Reason: Pain or Fever >101 Stop: 02/05/20 01:50 Al Hydrox/Mg Hydrox/Simethicone (Maalox) 30 ml PO Q4HR PRN PRN Reason: GI DISTRESS Stop: 02/05/20 01:41 Atorvastatin Calcium (Lipitor) 40 mg PO HS [facility]; Protocol Stop: 02/05/20 20:59 Last Admin: 12/12/19 21:03 Dose: 40 mg Carvedilol (Coreg) 6.25 mg PO BID [facility] Stop: 02/05/20 08:59 Last Admin: 12/13/19 16:17 Dose: 6.25 mg Docusate Sodium (Colace) 100 mg PO BID [facility] Stop: 02/05/20 08:59 Last Admin: 12/13/19 16:17 Dose: 100 mg Escitalopram Oxalate (Lexapro) 10 mg PO DAILY [facility]; Protocol Stop: 02/06/20 08:59 Last Admin: 12/13/19 08:11 Dose: 10 mg Levetiracetam (Keppra) 1,500 mg PO BID [facility] Stop: 02/05/20 08:59 Last Admin: 12/13/19 16:17 Dose: 1,500 mg Lorazepam (Ativan) 0.5 mg PO Q4HR PRN; Protocol PRN Reason: Anxiety Stop: 01/06/20 01:41 Last Admin: 12/07/19 09:43 Dose: 0.5 mg Rivaroxaban (Xarelto) 10 mg PO HS [facility] Stop: 02/05/20 20:59 Last Admin: 12/12/19 21:04 Dose: 10 mg Zolpidem Tartrate (Ambien) 5 mg PO HS PRN PRN Reason: Insomnia Stop: 02/05/20 01:41 Last Admin: 12/11/19 21:11 Dose: 5 mg General: demented HEENT: NC/AT, PERRLA, EOMI, anicteric sclerae, throat clear Neck: Supple, No JVD, No thyromegaly, +2 carotid pulse wo bruit, No LAD Lungs: CTAB Cardiovascular: RRR, Normal S1, Normal S2, without murmur Abdomen: soft, non-tender, non-distended Extremities: clear Neurological: no change - Procedures Procedures: Procedures Procedure Code Date GROUP PSYCHOTHERAPY 66878 08/19/15 GROUP PSYCHOTHERAPY GZHZZZZ 08/19/15 Internal Medicine Assmt/Plan - Assessment Assessment: 1.HTN. 2.CVA. 3.SEIZURE DISORDER. 4.PSYCHOSIS - Plan Plan: CONTINUE ON CURRENT MEDICATION AND DIET Nutritional Asmnt/Malnutr-PDOC - Dietary Evaluation Malnutrition Findings (Please click <Entered> for more info): Nutritional Asmnt/Malnutrition Start: 12/11/19 11: 28 Text: Status: Complete Freq: Protocol: Document 12/11/19 11:28 NATE (Rec: 12/11/19 11:31 NATE [email or web address]) Nutritional Asmnt/Malnutrition Patient General Information Nutritional Screening Moderate Risk Diagnosis Psychosis Pertinent Medical Hx/Surgical Hx CVA, HTN, seizure disorder, hyperlipidemia, psychiatric disorder Subjective Information Pt is a 59-year-old male admitted on 12/06 d/t danger to self. Pt is eating an estimated 73% of meals (x3 days) Per Meal/Nutrition Activity Record. Dietary is currently providing an estimated 2324 kcals and 108 gm Pro, per Pt PO intake this is providing an estimated 1696 kcals and 77gm Pro to meet 100% kcal and 100% Pro needs- adequate. Anthropometrics HT: 57 WT: 142 LB (64.54 kg) BMI: 22.24 (Normal) GI/ Skin Integrity GI: Flat, Soft Non-Tender BM: 12/09 x1 I/O: 970/Not Noted Skin: WNL, Dryness Jose: 14 Diet Order: Mechanical Soft, QUAN Estimated Energy Needs: ( Geriatric, CBW) 8682-8079 kcals (25-30 kcals/ kg) 65-78 Pro (1.0-1.2 g/kg) 7609-1821 ml (25-30 ml/kg Current Diet Order/ Nutrition Support Mechanical Soft, QUAN Pertinent Medications Maalox (PRN), Lipitor, Colace Pertinent Labs No pertinent labs at this time Nutritional Hx/Data Height 1.7 m Height (Calculated Centimeters) 170.2 Current Weight (lbs) 64.41 kg Weight (Calculated Kilograms) 64.4 Weight (Calculated Grams) 53380.1 [place] Body Weight 148 % [place] Body Weight 96 Body Mass Index (BMI) 22.2 Weight Status Approriate GI Symptoms GI Symptoms None Last BM 12/09 Skin Integrity/Comment: Skin: WNL, Dryness Jose: 14 Current %PO Fair (50-74%) Estimated Nutritional Goals BEE in Kcals: Using Current wt Calories/Kcals/Kg 25-30 Kcals Calculated 3488-8297 Protein: Using Current wt Protein g/k.0-1.2 Protein Calculated 65-78 Fluid: ml 0783-2806 ml (25-30 ml/kg) Nutritional Problem 1. Problem Problem No nutrition diagnosis at this time. Etiology N/A Signs/Symptoms: N/A Malnutrition Related to Morbid Obesity Malnutrition related to morbid obesity No Intervention/Recommendation Comments 1. Continue msoft, QUAN diet as tolerated Expected Outcomes/Goals Expected Outcomes/Goals 1. PO intake to meet >75% of estimated nutritional needs. 2. Monitor PO intake, wt, nutrition related labs, and skin integrity. 3. F/U as low risk in 7-10 days, 12/17-12/20
[2019-12-14] MEDS: Multivitamin w/ Minerals Tab PO SCH (09:07)
--- NOTE | 2019-12-14 12:03 | Progress Notes ---
DATE: 12/14/2019 PSYCHIATRIC PROGRESS NOTE SUBJECTIVE: Staff was spoken to. The patient is interviewed. Mood is noted to be anxious since the patient is isolative and withdrawn. Insight and judgment are noted to be still impaired. Impulse control is noted to be limited. Coping skills are noted to be limited. The patient has been having difficult time to cope with the stress. No side effects to the medications are noted. The patient is not presenting with any major psychotic symptoms, but the patient's coping skills are noted to be extremely poor. ASSESSMENT: The patient is still depressed. PLAN: To continue the patient with the supportive therapy and current medications and followup. JOB# [id number]
--- NOTE | 2019-12-14 17:48 | Progress Notes ---
DATE: 12/13/2019 PSYCHOLOGY PROGRESS NOTE SUBJECTIVE: The patient is seen and is interviewed. Case is discussed with staff. The patient presents as somewhat anxious this visit. Staff reports the patient's impulse control is improving. The patient has been compliant with his medication. The patient states that he is still depressed, but not as much as before. The patient stated he has not had any suicidal thoughts in the last 24 hours. OBJECTIVE: Mood is anxious and dysphoric. Affect is mood congruent. Thought process is depressogenic, but goal oriented. The patient denied any hallucinations or delusions. The patient has been compliant with his treatment on the unit. ASSESSMENT: The patient's depression is resolving. The patient denied suicidal ideation, plan or intention at the time of this visit. PLAN: The patient is currently on Lexapro according to the attending psychiatrist. The patient stated that he is willing to comply with treatment on an outpatient basis. We provided supportive psychotherapy, which included reality testing and reality integration. We provided coping strategies for phase of life issues as well as for chronic severe mental illness. We encouraged the patient to verbalize his concerns and any suicidal thoughts to the staff at his placement if this should become recurrent. We provided suicide prevention. The patient was able to verbally contract for safety, i.e., no self-harm and no harm to others. The patient denied any passive or active suicidal ideation at the time of this visit. No followup is indicated as the patient is awaiting placement or return to his original placement and possibly discharging today or tomorrow. JOB# [id number] CAM
--- NOTE | 2019-12-14 22:00 | Internal Medicine Prog Note ---
Internal Medicine Subjective - Subjective Service Date: 12/14/19 Patient seen and examined:: without staff (he is doing good) Patient is:: awake, verbal, in bed, talking, confused Per staff patient has:: no adverse event Internal Medicine Objective - Physical Exam Vitals and I&O: Vital Signs Temp 97.9 F 12/14/19 19:50 Pulse 81 12/14/19 19:50 Resp 20 12/14/19 19:50 BP 132/87 12/14/19 19:50 Pulse Ox 97 12/14/19 19:50 Intake & Output 12/14/19 12/14/19 12/15/19 06:59 18:59 06:59 Intake Total 360 120 Output Total 1 1 Balance 359 119 Intake: Oral 360 120 Output: Urine/Stool Mix 1 1 Other: # Voids 2 3 1 # Bowel Movements 1 1 1 Active Medications: Current Medications Acetaminophen (Tylenol) 650 mg PO Q4H PRN PRN Reason: Pain or Fever >101 Stop: 02/05/20 01:50 Al Hydrox/Mg Hydrox/Simethicone (Maalox) 30 ml PO Q4HR PRN PRN Reason: GI DISTRESS Stop: 02/05/20 01:41 Atorvastatin Calcium (Lipitor) 40 mg PO HS [facility]; Protocol Stop: 02/05/20 20:59 Last Admin: 12/14/19 21:03 Dose: Not Given Carvedilol (Coreg) 6.25 mg PO BID [facility] Stop: 02/05/20 08:59 Last Admin: 12/14/19 16:24 Dose: Not Given Docusate Sodium (Colace) 100 mg PO BID [facility] Stop: 02/05/20 08:59 Last Admin: 12/14/19 16:24 Dose: Not Given Escitalopram Oxalate (Lexapro) 10 mg PO DAILY [facility]; Protocol Stop: 02/06/20 08:59 Last Admin: 12/14/19 09:07 Dose: Not Given Levetiracetam (Keppra) 1,500 mg PO BID [facility] Stop: 02/05/20 08:59 Last Admin: 12/14/19 16:25 Dose: Not Given Lorazepam (Ativan) 0.5 mg PO Q4HR PRN; Protocol PRN Reason: Anxiety Stop: 01/06/20 01:41 Last Admin: 12/07/19 09:43 Dose: 0.5 mg Rivaroxaban (Xarelto) 10 mg PO HS [facility] Stop: 02/05/20 20:59 Last Admin: 12/14/19 21:04 Dose: Not Given Zolpidem Tartrate (Ambien) 5 mg PO HS PRN PRN Reason: Insomnia Stop: 02/05/20 01:41 Last Admin: 12/11/19 21:11 Dose: 5 mg General: demented HEENT: NC/AT, PERRLA, EOMI, anicteric sclerae, throat clear Neck: Supple, No JVD, No thyromegaly, +2 carotid pulse wo bruit, No LAD Lungs: CTAB Cardiovascular: RRR, Normal S1, Normal S2, without murmur Abdomen: soft, non-tender, non-distended Extremities: clear Neurological: no change - Procedures Procedures: Procedures Procedure Code Date GROUP PSYCHOTHERAPY 53948 08/19/15 GROUP PSYCHOTHERAPY GZHZZZZ 08/19/15 Internal Medicine Assmt/Plan - Assessment Assessment: 1.HTN. 2.CVA. 3.SEIZURE DISORDER. 4.PSYCHOSIS - Plan Plan: CONTINUE ON CURRENT MEDICATION AND DIET Nutritional Asmnt/Malnutr-PDOC - Dietary Evaluation Malnutrition Findings (Please click <Entered> for more info): Nutritional Asmnt/Malnutrition Start: 12/11/19 11: 28 Text: Status: Complete Freq: Protocol: Document 12/11/19 11:28 NATE (Rec: 12/11/19 11:31 NATE [email or web address]) Nutritional Asmnt/Malnutrition Patient General Information Nutritional Screening Moderate Risk Diagnosis Psychosis Pertinent Medical Hx/Surgical Hx CVA, HTN, seizure disorder, hyperlipidemia, psychiatric disorder Subjective Information Pt is a 59-year-old male admitted on 12/06 d/t danger to self. Pt is eating an estimated 73% of meals (x3 days) Per Meal/Nutrition Activity Record. Dietary is currently providing an estimated 2324 kcals and 108 gm Pro, per Pt PO intake this is providing an estimated 1696 kcals and 77gm Pro to meet 100% kcal and 100% Pro needs- adequate. Anthropometrics HT: 57 WT: 142 LB (64.54 kg) BMI: 22.24 (Normal) GI/ Skin Integrity GI: Flat, Soft Non-Tender BM: 12/09 x1 I/O: 970/Not Noted Skin: WNL, Dryness Jose: 14 Diet Order: Mechanical Soft, QUAN Estimated Energy Needs: ( Geriatric, CBW) 9002-8709 kcals (25-30 kcals/ kg) 65-78 Pro (1.0-1.2 g/kg) 7129-5163 ml (25-30 ml/kg Current Diet Order/ Nutrition Support Mechanical Soft, QUAN Pertinent Medications Maalox (PRN), Lipitor, Colace Pertinent Labs No pertinent labs at this time Nutritional Hx/Data Height 1.7 m Height (Calculated Centimeters) 170.2 Current Weight (lbs) 64.41 kg Weight (Calculated Kilograms) 64.4 Weight (Calculated Grams) 01986.1 [place] Body Weight 148 % [place] Body Weight 96 Body Mass Index (BMI) 22.2 Weight Status Approriate GI Symptoms GI Symptoms None Last BM 12/09 Skin Integrity/Comment: Skin: WNL, Dryness Jose: 14 Current %PO Fair (50-74%) Estimated Nutritional Goals BEE in Kcals: Using Current wt Calories/Kcals/Kg 25-30 Kcals Calculated 8948-5196 Protein: Using Current wt Protein g/k.0-1.2 Protein Calculated 65-78 Fluid: ml 1834-1425 ml (25-30 ml/kg) Nutritional Problem 1. Problem Problem No nutrition diagnosis at this time. Etiology N/A Signs/Symptoms: N/A Malnutrition Related to Morbid Obesity Malnutrition related to morbid obesity No Intervention/Recommendation Comments 1. Continue msoft, QUAN diet as tolerated Expected Outcomes/Goals Expected Outcomes/Goals 1. PO intake to meet >75% of estimated nutritional needs. 2. Monitor PO intake, wt, nutrition related labs, and skin integrity. 3. F/U as low risk in 7-10 days, 12/17-12/20
[2019-12-15] MEDS: Multivitamin w/ Minerals Tab PO SCH (08:43)
--- NOTE | 2019-12-15 21:55 | Internal Medicine Prog Note ---
Internal Medicine Subjective - Subjective Service Date: 12/15/19 Patient seen and examined:: without staff (HE IS DOING WELL) Patient is:: awake, verbal, in bed, talking, confused Per staff patient has:: no adverse event Internal Medicine Objective - Physical Exam Vitals and I&O: Vital Signs Temp 98.8 F 12/15/19 20:00 Pulse 77 12/15/19 20:00 Resp 18 12/15/19 20:00 BP 105/63 12/15/19 20:00 Pulse Ox 94 12/15/19 20:00 Intake & Output 12/15/19 12/15/19 12/16/19 06:59 18:59 06:59 Intake Total 180 800 Output Total 1 Balance 179 800 Intake: Oral 180 800 Output: Urine/Stool Mix 1 Other: # Voids 2 4 # Bowel Movements 1 1 Active Medications: Current Medications Acetaminophen (Tylenol) 650 mg PO Q4H PRN PRN Reason: Pain or Fever >101 Stop: 02/05/20 01:50 Al Hydrox/Mg Hydrox/Simethicone (Maalox) 30 ml PO Q4HR PRN PRN Reason: GI DISTRESS Stop: 02/05/20 01:41 Atorvastatin Calcium (Lipitor) 40 mg PO HS [facility]; Protocol Stop: 02/05/20 20:59 Last Admin: 12/15/19 20:38 Dose: 40 mg Carvedilol (Coreg) 6.25 mg PO BID [facility] Stop: 02/05/20 08:59 Last Admin: 12/15/19 16:12 Dose: 6.25 mg Docusate Sodium (Colace) 100 mg PO BID [facility] Stop: 02/05/20 08:59 Last Admin: 12/15/19 16:13 Dose: 100 mg Escitalopram Oxalate (Lexapro) 10 mg PO DAILY [facility]; Protocol Stop: 02/06/20 08:59 Last Admin: 12/15/19 08:43 Dose: 10 mg Levetiracetam (Keppra) 1,500 mg PO BID [facility] Stop: 02/05/20 08:59 Last Admin: 12/15/19 16:11 Dose: 1,500 mg Lorazepam (Ativan) 0.5 mg PO Q4HR PRN; Protocol PRN Reason: Anxiety Stop: 01/06/20 01:41 Last Admin: 12/07/19 09:43 Dose: 0.5 mg Rivaroxaban (Xarelto) 10 mg PO HS [facility] Stop: 02/05/20 20:59 Last Admin: 12/15/19 20:38 Dose: 10 mg Zolpidem Tartrate (Ambien) 5 mg PO HS PRN PRN Reason: Insomnia Stop: 02/05/20 01:41 Last Admin: 12/11/19 21:11 Dose: 5 mg General: demented HEENT: NC/AT, PERRLA, EOMI, anicteric sclerae, throat clear Neck: Supple, No JVD, No thyromegaly, +2 carotid pulse wo bruit, No LAD Lungs: CTAB Cardiovascular: RRR, Normal S1, Normal S2, without murmur Abdomen: soft, non-tender, non-distended Extremities: clear Neurological: no change - Procedures Procedures: Procedures Procedure Code Date GROUP PSYCHOTHERAPY 20680 08/19/15 GROUP PSYCHOTHERAPY GZHZZZZ 08/19/15 Internal Medicine Assmt/Plan - Assessment Assessment: 1.HTN. 2.CVA. 3.SEIZURE DISORDER. 4.PSYCHOSIS - Plan Plan: CONTINUE ON CURRENT MEDICATION AND DIET Nutritional Asmnt/Malnutr-PDOC - Dietary Evaluation Malnutrition Findings (Please click <Entered> for more info): Nutritional Asmnt/Malnutrition Start: 12/11/19 11: 28 Text: Status: Complete Freq: Protocol: Document 12/11/19 11:28 NATE (Rec: 12/11/19 11:31 NATE [email or web address]) Nutritional Asmnt/Malnutrition Patient General Information Nutritional Screening Moderate Risk Diagnosis Psychosis Pertinent Medical Hx/Surgical Hx CVA, HTN, seizure disorder, hyperlipidemia, psychiatric disorder Subjective Information Pt is a 59-year-old male admitted on 12/06 d/t danger to self. Pt is eating an estimated 73% of meals (x3 days) Per Meal/Nutrition Activity Record. Dietary is currently providing an estimated 2324 kcals and 108 gm Pro, per Pt PO intake this is providing an estimated 1696 kcals and 77gm Pro to meet 100% kcal and 100% Pro needs- adequate. Anthropometrics HT: 57 WT: 142 LB (64.54 kg) BMI: 22.24 (Normal) GI/ Skin Integrity GI: Flat, Soft Non-Tender BM: 12/09 x1 I/O: 970/Not Noted Skin: WNL, Dryness Jose: 14 Diet Order: Mechanical Soft, QUAN Estimated Energy Needs: ( Geriatric, CBW) 5395-0739 kcals (25-30 kcals/ kg) 65-78 Pro (1.0-1.2 g/kg) 7120-8776 ml (25-30 ml/kg Current Diet Order/ Nutrition Support Mechanical Soft, QUAN Pertinent Medications Maalox (PRN), Lipitor, Colace Pertinent Labs No pertinent labs at this time Nutritional Hx/Data Height 1.7 m Height (Calculated Centimeters) 170.2 Current Weight (lbs) 64.41 kg Weight (Calculated Kilograms) 64.4 Weight (Calculated Grams) 28231.1 [place] Body Weight 148 % [place] Body Weight 96 Body Mass Index (BMI) 22.2 Weight Status Approriate GI Symptoms GI Symptoms None Last BM 12/09 Skin Integrity/Comment: Skin: WNL, Dryness Jose: 14 Current %PO Fair (50-74%) Estimated Nutritional Goals BEE in Kcals: Using Current wt Calories/Kcals/Kg 25-30 Kcals Calculated 1360-4372 Protein: Using Current wt Protein g/k.0-1.2 Protein Calculated 65-78 Fluid: ml 5056-2083 ml (25-30 ml/kg) Nutritional Problem 1. Problem Problem No nutrition diagnosis at this time. Etiology N/A Signs/Symptoms: N/A Malnutrition Related to Morbid Obesity Malnutrition related to morbid obesity No Intervention/Recommendation Comments 1. Continue msoft, QUAN diet as tolerated Expected Outcomes/Goals Expected Outcomes/Goals 1. PO intake to meet >75% of estimated nutritional needs. 2. Monitor PO intake, wt, nutrition related labs, and skin integrity. 3. F/U as low risk in 7-10 days, 12/17-12/20
--- NOTE | 2019-12-16 03:31 | Progress Notes ---
DATE: 12/15/2019 PSYCHIATRIC PROGRESS NOTE SUBJECTIVE: Staff was spoken to. The patient is interviewed. Mood is noted to be depressed. Affect is constricted. The patient is isolative and withdrawn. The patient gets easily annoyed when asked how he has been doing. Coping skills are noted to be improving. No side effects to the medications are noted. The patient is currently on Lexapro and has been able to tolerate the medication. ASSESSMENT: The patient's depression is resolving. PLAN: To continue the patient with the supportive therapy, encouraged the patient to verbalize the concerns rather than to act out. If the patient continues to be progressed like this, possibly the patient is going to be discharged tomorrow for followup on outpatient basis. [facility]# [id number]
[2019-12-16] MEDS: Multivitamin w/ Minerals Tab PO SCH (08:35)
--- NOTE | 2019-12-16 21:24 | Discharge Summary ---
DATE OF DISCHARGE: 12/16/2019 IDENTIFYING DATA: The patient is a 59-year-old male, resident of [facility]. Information obtained by directly interviewing the patient as well as reviewing the admission papers. JUSTIFICATION OF HOSPITALIZATION: The patient is admitted on 5149 as a danger to self and being gravely disabled. CHIEF COMPLAINT: "I do not know, I did not do anything to be in here." DIAGNOSES AT THE TIME OF ADMISSION: AXIS IA: Major depressive disorder, recurrent and severe. 1B: Dementia and behavioral change, secondary to the underlying CVA. AXIS II: None. AXIS III: As per Dr. Simon. HISTORY OF PRESENT ILLNESS: Please refer to 12/07/2019 dictation done by me. PHYSICAL EXAMINATION AND LAB DATA: The patient had the physical examination done by Dr. Simon and blood work has been reviewed by him. HOSPITAL COURSE AND RESPONSE TO TREATMENT: The patient has been observed on inpatient unit, provided with supportive psychotherapy. In view of his depression, the patient has been started with 10 mg of the Lexapro that was gradually ____ has been closely monitored. The patient started to do fairly well. No side effects to medications are noted. The patient was finally discharged on 12/16/2019 with recommendation that he is going to be seeking treatment on an outpatient basis. At the time of discharge, the patient noted to be anxious. Affect is appropriate. Not suicidal or homicidal. Insight and judgment are noted to be improving. Impulse control is also noted to be fair. No side effects to the medications are noted at the time of the discharge. Condition at the time of discharge is noted to be fair. The patient has been able to verbalize the concerns rather than to act out at the time of the discharge. MENTAL STATUS EXAMINATION AT THE TIME OF DISCHARGE: The patient's mood is noted to be less irritable. Affect is appropriate. Insight and judgment are noted to be improving. Impulse control is also noted to be fair. No side effects to the medications are noted at the time of the discharge. The patient has been able to verbalize the concerns rather than to act out at the time of discharge. CONDITION AT THE TIME OF DISCHARGE: Noted to be stable. JOB# [id number]
== END 2019-12-16 18:20 | DRG 885 ==
LOC: GERO 12-07 00:45
DX: F33.2 Major depressive disorder, recurrent severe without psychotic features (principal); F03.91 Unspecified dementia, unspecified severity, with behavioral disturbance; G40.909 Epilepsy, unspecified, not intractable, without status epilepticus; I10 Essential (primary) hypertension; F29 Unspecified psychosis not due to a substance or known physiological condition; E78.5 Hyperlipidemia, unspecified; Z86.73 Personal history of transient ischemic attack (TIA), and cerebral infarction without residual deficits
CPT/HCPCS: 83036-90; Z7610